=== PATIENT | male | born 1935 | race Caucasian/White ===

== ENCOUNTER 2016-11-05 15:45 | Inpatient (IN) | payer MEDICARE ==
[~2016-11-05] VITALS: Ht 180.3 cm; Wt 82.0 kg
[2016-11-09] MEDS ORDERED: VALS160T4 PO (14:59)
--- NOTE | 2016-11-12 15:43 | MH ---
cc: Ron SKINNER M.D. DATE OF ADMISSION: 11/16/2016 ADMITTING DIAGNOSIS: Osteoarthritic degeneration left knee now being admitted for left total knee arthroplasty. HISTORY OF PRESENT ILLNESS: This pleasant 81-year-old male is being admitted today for left total knee arthroplasty due to severe painful osteoarthritic degeneration left knee. PAST MEDICAL HISTORY: The patient has already had a right total knee in the past. He also has a history of hypertension, back pain. CURRENT MEDICATIONS Hydrochlorothiazide. Valsartan PAST SURGERIES Include tonsillectomy appendectomy micro surgery on his vocal cord cataract surgery. REVIEW OF SYSTEMS Noncontributory. FAMILY HISTORY Noncontributory. SOCIAL HISTORY: He does not smoke. Drinks occasionally. ALLERGIES NO KNOWN DRUG ALLERGIES. PHYSICAL EXAMINATION IN GENERAL: We find an 81-year male well-developed, well-nourished oriented x3 complaint of pain in his left knee. VITAL SIGNS: Blood pressure 122/70, pulse 65 and regular, respirations 16, temperature 97.6, pulse oximetry 96% on room air. HEAD, EYES, EARS, NOSE, AND THROAT: Eyes Pupils equal, round, reactive to light and accommodation, extraocular muscles intact. Ear, nose, and mouth clear. NECK: The neck is supple. LUNGS: clear HEART: Regular rate. ABDOMEN: Soft, positive bowel sounds and nontender. EXTREMITIES: Extremities reveal his left knee be tender with crepitance on range of motion. Range of motion from -5 showed full extension 90% degrees of flexion. He is neurovascularly to his toes. IMPRESSION Osteoarthritic degeneration left knee for which the patient will be undergoing a left total knee arthroplasty. He understands he understands procedure well and risks involved and wishes to proceed with surgery as soon as possible. He understands to use Hibiclens scrub and Bactroban preoperatively. He is given a prescription for postoperative pain anticoagulation control in the office. PLAN: Plans on going home with home health care after stay in the hospital. MD BECKY Guo/orin /2:03 PM /2:22 PM
[2016-11-16 06:41] VITALS: BP 143/81; PULSE 71; RESP 20; TEMP 97.8; O2SAT 97
[2016-11-16] MEDS: LACTATED RINGER'S 1000 ML IV SCH (06:52)
[2016-11-16] MEDS ORDERED: VANCOMYCIN HCL 1000 MG VIAL ONE (06:54)
[2016-11-16] MEDS ORDERED: SODIUM CHLOR 0.9% 250 ML INJ 250 ML ONE (06:54)
[2016-11-16] MEDS ORDERED: INSULIN HUMAN REGULAR 1,000 UNITS/10 ML VIAL SQ PRN (07:00)
[2016-11-16] MEDS: SODIUM CHLORID 0.9% 500 ML IV SCH ×2 (07:00→23:15)
[2016-11-16] MEDS ORDERED: METOPROLOL TARTRATE 25 MG TAB PO PRN (07:00)
[2016-11-16] MEDS ORDERED: MIDAZOLAM HCL 2 MG/2 ML VIAL ONE (07:17)
[2016-11-16] MEDS ORDERED: TRANEXAMIC ACID INJ 768 MG in SODIUM CHLORIDE 0.9% INJ 100 ML IV SCH ×4 (07:45)
[2016-11-16] MEDS ORDERED: EXPAREL PERI-ARTICULAR INJECTION (TOTAL VOL. 120 ML) P-ARTICULR SCH ×2 (08:00)
[2016-11-16] MEDS ORDERED: VANCOMYCIN 1000 MG/NS 250 ML (for <70 kg) IV SCH ×2 (08:00)
[2016-11-16] MEDS ORDERED: ceFAZolin 2 GM PREMIX 50 ML IV SCH (08:00)
[2016-11-16] MEDS: CHLORHEXIDINE GLUCONATE 4% SOLN 120 ML BTL TOP SCH (08:00)
[2016-11-16] MEDS ORDERED: BUPIVACAINE LIPOSO PF 1.3% INJ 20 ML, BUPIVACAINE PF 0.25% INJ 20 ML in SODIUM CHLORIDE... P-ARTICULR SCH (08:15)
[2016-11-16] MEDS ORDERED: NEOSTIGMINE 3 MG/3 ML SYR IV ONE (08:32)
[2016-11-16] MEDS ORDERED: PROPOFOL 200 MG/20 ML AMP IV ONE (08:32)
[2016-11-16] MEDS ORDERED: ONDANSETRON HCL 4 MG/2 ML VIAL IV PUSH ONE (08:32)
[2016-11-16] MEDS ORDERED: ceFAZolin INJ 1,000 MG VIAL XX ONE (08:38)
--- NOTE | 2016-11-16 10:23 | HHI.FF ---
Face to Face Verification Diagnosis: (1) Status post total left knee replacement Physical Therapy Gait training Knee: Total knee, Protocol: Left, Full weight bearing Canvas Knee Splint: When in bed & 2 pillows btw thighs Nursing RN: 3 days/week x 2 weeks Nursing: Carlos teaching, Dressing changes Dressing Changes: Daily dressing change, 4x4s, Gauze, Paper tape I have seen patient Simone Hernandez, DANNIELLE on 11/16/16. My clinical findings support the need for the requested home health care services because: Limited ability to care for self High risk of falls I certify that my clinical findings support that this patient is homebound because: Unsteady gait/balance Ron Orozco MD Nov 16, 2016 10:22
[2016-11-16] MEDS ORDERED: MISC-163 (10:25)
[2016-11-16] MEDS ORDERED: WALKER WHEELS/F1 MIS (10:25)
[2016-11-16] MEDS ORDERED: CPMMACHINE (10:25)
[2016-11-16] MEDS ORDERED: BUPIVACAINE HCL PF 0.5% 30 ML VIAL NB ONE (10:27)
[2016-11-16] MEDS ORDERED: TEMAZEPAM 15 MG CAP PO PRN (10:30)
[2016-11-16] MEDS ORDERED: Post-op Orders (for Pharmacy) MISC XX ONE (10:30)
[2016-11-16] MEDS ORDERED: TRANEXAMIC ACID INJ 0 MG in SODIUM CHLORIDE 0.9% INJ 100 ML IV SCH (10:30)
[2016-11-16] MEDS ORDERED: SODIUM CHLORIDE 0.9% FLUSH 5 ML FLUSH IVF PRN (10:30)
[2016-11-16] MEDS ORDERED: MORPHINE SULFATE 30 MG/30 ML PCA IV SCH (10:30)
[2016-11-16] MEDS ORDERED: diphenhydrAMINE HCL 50 MG/ML VIAL IV PRN (10:30)
[2016-11-16] MEDS ORDERED: ONDANSETRON HCL 4 MG/2 ML VIAL IVP PRN (10:30)
[2016-11-16] MEDS ORDERED: NALOXONE HCL 0.4 MG/ML AMP IV PRN (10:30)
[2016-11-16] MEDS ORDERED: ACETAMINOPHEN/HYDROcodone 325 MG/7.5 MG TAB PO PRN (10:30)
[2016-11-16] MEDS ORDERED: DO NOT ADM ANY ANTICOAGULANT DRUGS XX PRN (10:51)
[2016-11-16] MEDS ORDERED: fentaNYL CITRATE 250 MCG/5 ML AMP ONE (10:54)
[2016-11-16] MEDS: LACTATED RINGER'S 1000 ML INJ 1,000 ML IV SCH ×2 (11:00→23:15)
[2016-11-16 11:47] VITALS: BP 143/80; PULSE 71; RESP 16; TEMP 96; O2SAT 95
--- NOTE | 2016-11-16 12:01 | RADRPT ---
EXAM DATE/TIME: 11/16/2016 11:01 [place] COMPARISON: No previous studies available for comparison. INDICATIONS : Left knee replacement. MEDICAL HISTORY : Hypertension. SURGICAL HISTORY : None. ENCOUNTER: Initial ACUITY: 1 day PAIN SCORE: Non-responsive. LOCATION: Left knee. FINDINGS: AP and lateral views of the knee following arthroplasty reveals a prosthesis in anatomic alignment. F racture is not appreciated. CONCLUSION: Status post total knee arthroplasty. Tam Mendiola MD FACR Board Certified Radiologist. This report was verified electronically.
[2016-11-16 12:17] VITALS: O2SAT 97
[2016-11-16] MEDS: PCA - TOTAL MG MORPHINE DELIVERED PER SHIFT SCH ×2 (14:00→21:34)
[2016-11-16] MEDS ORDERED: MULT1TAB85 PO (14:20)
[2016-11-16] MEDS ORDERED: CHOL1TAB42 PO (14:24)
[2016-11-16 16:00] VITALS: BP 128/60; PULSE 99; RESP 16; TEMP 96.8; O2SAT 95
[2016-11-16 20:25] VITALS: BP 126/59; PULSE 130; RESP 19; TEMP 98.9; O2SAT 92
[2016-11-16] MEDS: SODIUM CHLORIDE 0.9% FLUSH 5 ML FLUSH IVF SCH (20:59)
[2016-11-17] VITALS (9 sets, daily range): BP systolic 97–125; BP diastolic 53–63; PULSE 91–116; RESP 16–18; TEMP 97.5–100.3; O2SAT 88–98
[2016-11-17] MEDS: PCA - TOTAL MG MORPHINE DELIVERED PER SHIFT SCH (06:21)
[2016-11-17] MEDS: LACTATED RINGER'S 1000 ML IV SCH (07:00)
[2016-11-17 07:09] LABS: HEMATOCRIT 42.3 % (39.0-51.0); REVIEW FLAG FINAL
[2016-11-17] MEDS: CHLORHEXIDINE GLUCONATE 4% SOLN 120 ML BTL TOP SCH (07:29)
[2016-11-17] MEDS: SODIUM CHLORIDE 0.9% FLUSH 5 ML FLUSH IVF SCH ×2 (08:07→21:43)
[2016-11-17] MEDS: HYDROCHLOROTHIAZIDE 12.5 MG CAP PO SCH (08:07)
[2016-11-17] MEDS: VALSARTAN 160 MG TAB PO SCH (08:07)
--- NOTE | 2016-11-17 08:50 | PD.ORT.PN ---
Subjective Subjective Remarks pt comfortable at present. Block still working. Objective Vitals Vital Signs Date Time Temp Pulse Resp B/P Pulse Ox O2 Delivery O2 Flow Rate FiO2 11/17/16 06:21 17 11/17/16 04:25 99.2 104 18 125/63 98 11/17/16 02:15 88 Nasal Cannula 1.00 11/17/16 00:15 98.8 114 18 112/62 95 11/16/16 21:34 18 11/16/16 20:25 98.9 130 19 126/59 92 11/16/16 16:00 96.8 99 16 128/60 95 11/16/16 14:00 15 11/16/16 12:17 97 21 11/16/16 11:47 96.0 71 16 143/80 95 11/16/16 11:41 14 11/16/16 11:25 97.7 65 14 152/81 94 Room Air 11/16/16 11:15 73 14 154/80 95 Room Air 11/16/16 11:00 71 14 151/85 98 Nasal Cannula 2 11/16/16 10:45 97.7 80 14 154/89 98 Nasal Cannula 2 I/O 11/16/16 11/16/16 11/16/16 11/17/16 11/17/16 11/17/16 07:00 15:00 23:00 07:00 15:00 23:00 Intake Total 1805 ml 873 ml 992 ml Output Total 450 ml 200 ml 425 ml Balance 1355 ml 673 ml 567 ml Intake Oral 640 ml 240 ml 240 ml IV Total 215 ml 633 ml 752 ml Other 950 ml Output Urine Total 350 ml 200 ml 425 ml Estimated Blood Loss 100 ml # Voids 2 # Bowel Movements 0 0 0 Result Diagram: 11/17/16 0630 Imaging Last 24 hours Impressions Knee X-Ray 11/16/16 1019 Signed Impressions: Service Date/Time: Wednesday, November 16, 2016 11:01 - CONCLUSION: Status post total knee arthroplasty. Tam Mendiola MD Objective Remarks Dressing dry and intact. No calf tenderness. Assessment & Plan Ortho Post Op Day #: 1 Problem List: Assessment and Plan OOB, PT, daily wound care. Possible DC to home tomorrow. DC SCRAP KETTLE TENDER. Ron Orozco MD Nov 17, 2016 08:50
[2016-11-17] MEDS ORDERED: HYDROCHLOROTHIAZIDE 12.5 MG CAP PO SCH ×2 (09:00)
[2016-11-17] MEDS ORDERED: VALSARTAN 160 MG TAB PO SCH ×2 (09:00)
[2016-11-17] MEDS ORDERED: NON-FORMULARY DRUG (Valsartan-Hydrochlorothiazide 1 TAB) PO SCH (09:00)
[2016-11-17] MEDS: ACETAMINOPHEN/HYDROcodone 325 MG/7.5 MG TAB PO PRN ×3 (10:11→18:19)
[2016-11-17] MEDS: LACTATED RINGER'S 1000 ML INJ 1,000 ML IV SCH (10:12)
[2016-11-17] MEDS: ENOXAPARIN SODIUM 30 MG/0.3 ML SYRINGE SQ SCH ×2 (10:12→21:42)
[2016-11-17] MEDS: MAGNESIUM HYDROXIDE SUSP 30 ML CUP PO SCH ×2 (10:12→21:42)
--- NOTE | 2016-11-17 21:32 | MP ---
cc: Moises SKINNER. DATE OF SURGERY: 11/16/2016 PREOPERATIVE DIAGNOSIS: Osteoarthritic degeneration, left knee POSTOPERATIVE DIAGNOSIS: Osteoarthritic degeneration, left knee. OPERATION: Left total knee arthroplasty. COMPONENTS USED: [employer] Cruciate Retaining Pre-made cutting guide system. Size 8 femur, 7 tibia, 35 millimeter three peg patella, size 9 insert, two batches of cobalt blue cement, 120 cc Exparel for extra pain control. SURGEON Dr. 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 ANESTHESIA General intubation and block PROCEDURE: After successful induction of anesthesia, the patient is placed on the operating room table in the supine position. The knee is prepped and draped in the usual manner. A tourniquet is inflated at the upper thigh and set to 300 mmHg pressure after exsanguination of the lower extremity. A longitudinal incision is made extending from 3 inches proximal to the superior pole of the patella, across the patella in longitudinal fashion, and down past the insertion of the tibial tubercle into the proximal tibia. The incision is carried down through subcutaneous tissue along the medial aspect of the patella and retinaculum, down through the capsule to expose the knee joint. The patella and patellar tendon are freed up enough to allow the patella to be inverted and retracted off the lateral side of the knee joint. The knee joint is left exposed. Small osteophytes are removed. All soft tissue is removed to allow proper position of the femoral and tibial cutting jig guide. The first femoral jig is then inserted along the distal end of the femur after first measuring to decide whether this is a small, medium, or large component. The notch is then drilled and the tibial cutting guide inserted into the femoral cutting guide, along with the ankle brace to allow for proper measurement of the tibial cutting surface that needed to be resected. Pins are inserted into the tibial cutting jig and femoral cutting jig to hold them in place. An oscillating saw is then used to resect the surface of the tibia. The surface of the tibia is then completely removed using sharp and blunt dissection. The anterior and posterior cuts of the femur are then made as well using an oscillating saw through the cutting guide. All guides are then removed and the varus/valgus angulation cutting guide applied to the femur for proper measurement of the proper amount of valgus. The anterior cutting guide for the femur is then inserted at the anterior femoral cuts made. Next, the first block trial is inserted into the femur to allow for proper condyle drill holes to be made which are then made followed by removal of the bone between the condyles using an oscillating saw as well as the bone removed at the most posterior surface of the condyle. After this, the guide is removed and the chamfer cuts made using the chamfer cutting guide from both anterior and posterior. Next, the femoral trial is then inserted, the tibial surface reflected anterior to expose the tibial surface and a tibial stem guide is inserted after first measuring for a standard, standard plus, large, or large plus surface to be used. After the stem is impacted the trial tibial surface is applied followed by the trial meniscal components. After full range of motion is found with the appropriate length meniscal components varying the patella is prepared by resecting the posterior aspect of the patella using an oscillating saw, inserting a trial. The trial is then removed and the cruciate cutting guide applied using the bur to cut the cruciate cuts. After cruciate cuts are made all trials are removed. The wound is irrigated copiously with antibiotic solution and Water Pik and the actual components inserted into place using: [employer] [facility] Cruciate Retaining Pre-made Cutting Guide System. Size 8 femur, 7 tibia, 35 millimeter three peg patella, size 9 insert, two batches of cobalt blue cement, 120 cc Exparel for extra pain control. After the cement has hardened and the components are found to have full range of motion with no instability, the tourniquet is deflated, total tourniquet time being 54 minutes at 300 mmHg pressure, 120 cc Exparel with 20 Marcaine inserted around the knee joint for extra pain control. Meticulous hemostasis achieved. The deep fascia approximated with running #2 Quill, subcutaneous tissue approximated using interrupted running 2-0 and 3-0 Monocryl suture, Steri-Strips, sterile dressing and knee immobilizer. Estimated blood loss: 100 cc. No drain utilized. Sponge and suture count correct. The patient tolerated the procedure well and left the operating room in satisfactory condition. MD BECKY Guo/MIKE /10:29 AM /9:16 PM
[2016-11-17] MEDS: MULTIVITAMINS/MINERALS THERAPEUTIC TAB PO SCH (21:42)
[2016-11-17] MEDS: SENNOSIDES 8.6 MG TAB PO SCH (21:42)
[2016-11-17] MEDS: DOCUSATE SODIUM 100 MG CAP PO SCH (21:42)
[2016-11-18] VITALS (7 sets, daily range): BP systolic 122–133; BP diastolic 52–69; PULSE 112–119; RESP 16–17; TEMP 96.3–100.2; O2SAT 92–98
[2016-11-18] MEDS: LACTATED RINGER'S 1000 ML INJ 1,000 ML IV SCH ×2 (00:30→13:00)
[2016-11-18 06:54] LABS: HEMATOCRIT 36.5 % (39.0-51.0); REVIEW FLAG FINAL
[2016-11-18] MEDS: LACTATED RINGER'S 1000 ML IV SCH (07:00)
[2016-11-18] MEDS: CHLORHEXIDINE GLUCONATE 4% SOLN 120 ML BTL TOP SCH (08:00)
--- NOTE | 2016-11-18 08:10 | PD.ORT.PN ---
Subjective Subjective Remarks pt comfortable at present. No complaints. Objective Vitals Vital Signs Date Time Temp Pulse Resp B/P Pulse Ox O2 Delivery O2 Flow Rate FiO2 11/18/16 00:00 100.2 119 17 123/57 94 11/17/16 20:00 99.3 107 16 107/59 97 11/17/16 16:48 98.9 91 16 116/55 93 11/17/16 13:34 97.5 97/56 11/17/16 11:40 100.3 116 16 97/53 92 11/17/16 11:27 93 Nasal Cannula 21 I/O 11/17/16 11/17/16 11/17/16 11/18/16 11/18/16 11/18/16 07:00 15:00 23:00 07:00 15:00 23:00 Intake Total 992 ml 1285 ml 240 ml 240 ml Output Total 425 ml 150 ml Balance 567 ml 1135 ml 240 ml 240 ml Intake Oral 240 ml 960 ml 240 ml 240 ml IV Total 752 ml 325 ml Output Urine Total 425 ml 150 ml # Voids 2 1 2 # Bowel Movements 0 0 0 Result Diagram: 11/18/16 0540 Imaging Last 24 hours Impressions Knee X-Ray 11/16/16 1019 Signed Impressions: Service Date/Time: Wednesday, November 16, 2016 11:01 - CONCLUSION: Status post total knee arthroplasty. Tam Mendiola MD Objective Remarks Dressing dry and intact. No calf tenderness. On CPM. Assessment & Plan Ortho Post Op Day #: 2 Problem List: Assessment and Plan OOB, PT, daily wound care. Home today with [facility]. Ron Orozco MD Nov 18, 2016 08:10
--- NOTE | 2016-11-18 08:13 | HHI.DS ---
Discharge Summary Admission Date Nov 16, 2016 at 05:33 Discharge Date: Nov 18, 2016 Admitting Diagnosis DJD left knee. Diagnosis: (1) Status post total left knee replacement Diagnosis: Principal Brief History This is a 81 year old male patient CBC/BMP: 11/18/16 0540 Significant Findings Laboratory Tests Test 11/18/16 05:40 Hemoglobin 12.3 GM/DL (13.0-17.0) Hematocrit 36.5 % (39.0-51.0) PE at Discharge Dressing dry and intact. No calf tenderness. On CPM. Hospital Course Pt underwent Left total knee on day of admission. He received a course of prophylactic IV antibiotics and started on anticoagulation therapy within 23 hours of surgery. He began OOB with PT and daily wound care. He tolerated food and fluids well, remained afebrile under 101 temp, tolerated PO pain meds and was discharged on POD #2 to home with HHC and PT. in good condition. Pt Condition on Discharge: Good Discharge Disposition: Disch w/ Home Health Serv Discharge Instructions Diet Instructions: As Tolerated, No Restrictions Activities You Can Perform: Full Weight Bearing, Shower Only-No Bath Activities to Avoid: Bathing, Driving Ron Orozco MD Nov 18, 2016 08:13
[2016-11-18] MEDS: MULTIVITAMINS/MINERALS THERAPEUTIC TAB PO SCH ×2 (08:35→22:32)
[2016-11-18] MEDS: HYDROCHLOROTHIAZIDE 12.5 MG CAP PO SCH (08:35)
[2016-11-18] MEDS: VALSARTAN 160 MG TAB PO SCH (08:35)
[2016-11-18] MEDS: DOCUSATE SODIUM 100 MG CAP PO SCH ×2 (08:36→22:32)
[2016-11-18] MEDS: SODIUM CHLORIDE 0.9% FLUSH 5 ML FLUSH IVF SCH ×2 (08:36→22:33)
[2016-11-18] MEDS: MAGNESIUM HYDROXIDE SUSP 30 ML CUP PO SCH ×2 (08:37→22:32)
[2016-11-18] MEDS: ACETAMINOPHEN/HYDROcodone 325 MG/7.5 MG TAB PO PRN (08:43)
[2016-11-18] MEDS: ENOXAPARIN SODIUM 30 MG/0.3 ML SYRINGE SQ SCH ×2 (10:00→22:32)
[2016-11-18] MEDS ORDERED: BACITRACIN OINT 0.9 GM PKT TOP PRN (10:15)
[2016-11-18] MEDS: ACETAMINOPHEN 325 MG TAB PO PRN (14:18)
[2016-11-18] MEDS: SENNOSIDES 8.6 MG TAB PO SCH (22:32)
[2016-11-19] VITALS: BP 129/62; PULSE 115; RESP 16; TEMP 98.2; O2SAT 94
[2016-11-19] MEDS: LACTATED RINGER'S 1000 ML INJ 1,000 ML IV SCH ×2 (01:30→14:00)
[2016-11-19] MEDS: LACTATED RINGER'S 1000 ML IV SCH (07:00)
[2016-11-19 08:00] VITALS: BP 139/62; PULSE 124; RESP 16; TEMP 98.9; O2SAT 96
[2016-11-19] MEDS: MAGNESIUM HYDROXIDE SUSP 30 ML CUP PO SCH ×2 (09:00→20:35)
[2016-11-19] MEDS: DOCUSATE SODIUM 100 MG CAP PO SCH ×2 (09:00→20:35)
[2016-11-19] MEDS: HYDROCHLOROTHIAZIDE 12.5 MG CAP PO SCH (09:20)
[2016-11-19] MEDS: VALSARTAN 160 MG TAB PO SCH (09:20)
[2016-11-19] MEDS: MULTIVITAMINS/MINERALS THERAPEUTIC TAB PO SCH ×2 (09:20→20:34)
[2016-11-19] MEDS: SODIUM CHLORIDE 0.9% FLUSH 5 ML FLUSH IVF SCH ×2 (09:21→20:35)
[2016-11-19] MEDS: ACETAMINOPHEN 325 MG TAB PO PRN (09:21)
[2016-11-19] MEDS: ENOXAPARIN SODIUM 30 MG/0.3 ML SYRINGE SQ SCH ×2 (09:28→20:34)
[2016-11-19 11:28] VITALS: O2SAT 94
--- NOTE | 2016-11-19 11:31 | PD.ORT.PN ---
Subjective Subjective Remarks pt confused at present. No complaints except pain. Objective Vitals Vital Signs Date Time Temp Pulse Resp B/P Pulse Ox O2 Delivery O2 Flow Rate FiO2 11/19/16 11:28 94 Nasal Cannula 21 11/19/16 08:00 98.9 124 16 139/62 96 11/19/16 00:00 98.2 115 16 129/62 94 11/18/16 22:09 94 11/18/16 20:00 97.8 119 17 128/52 94 11/18/16 16:00 98.0 112 16 133/58 97 11/18/16 14:26 98 Nasal Cannula 2.00 11/18/16 12:00 99.1 112 16 122/55 95 I/O 11/18/16 11/18/16 11/18/16 11/19/16 11/19/16 11/19/16 07:00 15:00 23:00 07:00 15:00 23:00 Intake Total 240 ml 360 ml 240 ml 240 ml Output Total 200 ml Balance 240 ml 160 ml 240 ml 240 ml Intake Oral 240 ml 360 ml 240 ml 240 ml Output Urine Total 200 ml # Voids 2 1 1 2 # Bowel Movements 0 0 2 Result Diagram: 11/18/16 0540 Imaging Last 24 hours Impressions Knee X-Ray 11/16/16 1019 Signed Impressions: Service Date/Time: Wednesday, November 16, 2016 11:01 - CONCLUSION: Status post total knee arthroplasty. Tam Mendiola MD Objective Remarks Dressing dry and intact. No calf tenderness. Sitting up in chair today. Assessment & Plan Ortho Post Op Day #: 3 Problem List: (1) Status post total left knee replacement Assessment and Plan OOB, PT, daily wound care. To rehab when bed available, change pain meds. Ron Orozco MD Nov 19, 2016 11:31
[2016-11-19 12:00] VITALS: BP 111/61; PULSE 131; RESP 16; TEMP 98.1; O2SAT 92
[2016-11-19 16:00] VITALS: BP 138/93; PULSE 124; RESP 16; TEMP 97.8; O2SAT 93
[2016-11-19] MEDS: traMADol HCL 50 MG TAB PO PRN (16:36)
[2016-11-19 20:00] VITALS: BP 138/60; PULSE 133; RESP 18; TEMP 100.1; O2SAT 93
[2016-11-19] MEDS: SENNOSIDES 8.6 MG TAB PO SCH (20:34)
[2016-11-20] VITALS: BP 118/60; PULSE 110; RESP 17; TEMP 97.8; O2SAT 93
[2016-11-20] MEDS: ACETAMINOPHEN 325 MG TAB PO PRN (05:44)
[2016-11-20] MEDS: LACTATED RINGER'S 1000 ML IV SCH (07:00)
[2016-11-20 08:00] VITALS: BP 123/63; PULSE 99; RESP 18; TEMP 97.8; O2SAT 93
[2016-11-20] MEDS: MAGNESIUM HYDROXIDE SUSP 30 ML CUP PO SCH (09:00)
--- NOTE | 2016-11-20 09:39 | PD.ORT.PN ---
Subjective Subjective Remarks pt not confused at present. No complaints except pain but feels better than yesterday. Objective Vitals Vital Signs Date Time Temp Pulse Resp B/P Pulse Ox O2 Delivery O2 Flow Rate FiO2 11/20/16 00:00 97.8 110 17 118/60 93 11/19/16 20:00 100.1 133 18 138/60 93 11/19/16 16:00 97.8 124 16 138/93 93 11/19/16 12:00 98.1 131 16 111/61 92 11/19/16 11:28 94 Nasal Cannula 21 I/O 11/19/16 11/19/16 11/19/16 11/20/16 11/20/16 11/20/16 07:00 15:00 23:00 07:00 15:00 23:00 Intake Total 240 ml 1220 ml 240 ml 240 ml Output Total 300 ml Balance 240 ml 1220 ml -60 ml 240 ml Intake Oral 240 ml 1220 ml 240 ml 240 ml Output Urine Total 300 ml # Voids 2 3 2 # Bowel Movements 2 2 0 0 Result Diagram: 11/18/16 0540 Imaging Last 24 hours Impressions Knee X-Ray 11/16/16 1019 Signed Impressions: Service Date/Time: Wednesday, November 16, 2016 11:01 - CONCLUSION: Status post total knee arthroplasty. Tam Mendiola MD Objective Remarks Dressing dry and intact. No calf tenderness. Assessment & Plan Ortho Post Op Day #: 4 Problem List: (1) Status post total left knee replacement Assessment and Plan OOB, PT, daily wound care. To rehab when bed available. Ron Orozco MD Nov 20, 2016 09:39
[2016-11-20] MEDS: HYDROCHLOROTHIAZIDE 12.5 MG CAP PO SCH (09:42)
[2016-11-20] MEDS: VALSARTAN 160 MG TAB PO SCH (09:42)
[2016-11-20] MEDS: DOCUSATE SODIUM 100 MG CAP PO SCH (09:42)
[2016-11-20] MEDS: MULTIVITAMINS/MINERALS THERAPEUTIC TAB PO SCH (09:42)
[2016-11-20] MEDS: SODIUM CHLORIDE 0.9% FLUSH 5 ML FLUSH IVF SCH (09:44)
[2016-11-20] MEDS: ENOXAPARIN SODIUM 30 MG/0.3 ML SYRINGE SQ SCH (09:48)
[2016-11-20] MEDS: traMADol HCL 50 MG TAB PO PRN (10:03)
[2016-11-20 12:00] VITALS: BP 144/70; PULSE 110; RESP 18; TEMP 96.9; O2SAT 94
[2016-11-20] MEDS ORDERED: ULTR50TA5 PO (14:35)
[2016-11-20] MEDS: LACTATED RINGER'S 1000 ML INJ 1,000 ML IV SCH (15:00)
[2016-11-20 16:00] VITALS: BP 151/70; PULSE 114; RESP 18; TEMP 99.1; O2SAT 93
== END 2016-11-20 17:47 | DRG 470 ==
LOC: HSDI 11-16 05:33 → EDUNIT# 11-16 08:00 → N06A 11-16 11:36
PROVIDERS: ADMIT Surgery; ATTEND Surgery
PROC: 0QRF0JZ Replacement of Left Patella with Synthetic Substitute, Open Approach (ICD-10-PCS; 2016-11-16)
PROC: 3E0T3CZ (ICD-10-PCS; 2016-11-16)
PROC: 0SRD0J9 Replacement of Left Knee Joint with Synthetic Substitute, Cemented, Open Approach (ICD-10-PCS; principal; 2016-11-16 07:57)
DX: M17.12 Unilateral primary osteoarthritis, left knee (principal); I10 Essential (primary) hypertension
CPT/HCPCS: 73560; 85014; 85018; 86850; 86900; 86901; 94150; C1776; C9290; J0690; J1650; J2250; J2270; J2405; J2710; J3010; J3370; J7050; J7120; L1830

== ENCOUNTER → 2016-11-09 | Outpatient (CLI) | payer MEDICARE ==
[~2016-11-09] MED LIST: ALLO100 PO; ALLO300T2 PO; CEFA2SOL IV; CEPH500C PO; CHOL1TAB42 PO; CO Q30CA PO; COLC1TAB15 PO; CPMMACHINE; DIOV80TA4 PO; DOXY100C PO; EPIN1INJ21 IV PUSH; EPIN1INJ21 SQ; FISH1000 PO; METO25TA3 PO; MISC-163; MULT-7 PO; MULT1TAB85 PO; PROB1TAB PO; SOLU250I IV PUSH; ULTR50TA5 PO; VALS160T4 PO; VALS1TAB65 PO; WALKER WHEELS/F1 MIS
[2016-11-09 09:46] LABS: BASOPHIL % 0.7 % (0.0-2.0); EOSINOPHIL # 0.2 TH/MM3 (0-0.4); EOSINOPHIL % 3.4 % (0.0-4.0); HEMATOCRIT 48.9 % (39.0-51.0); HEMO FLAGS DIFF FINAL; LYMPH % 21.2 % (9.0-44.0); MEAN CELL VOLUME 95.6 FL (80.0-100.0); MEAN CORPUSCULAR HEMOGLOBIN 33.5 PG (27.0-34.0); MONO % 10.5 % (0.0-8.0); NEUT % 64.2 % (16.0-70.0); PLATELET COUNT 157 TH/MM3 (150-450); RED BLOOD COUNT 5.12 MIL/MM3 (4.50-5.90); RED CELL DISTRIBUTION WIDTH 14.7 % (11.6-17.2); WHITE BLOOD COUNT 4.6 TH/MM3 (4.0-11.0)
[2016-11-09 09:54] LABS: BLOOD, URINE NEG (NEG); COMMENT (UR) CULT NOT INDICATED; CULTURE IF INDICATED CULT NOT INDICATED; GLUCOSE,URINE NEG (NEG); HYALINE CAST, URINE 1 /lpf (RARE); KETONE, URINE NEG (NEG); MUCUS URINE FEW /lpf (OCC); NITRITE,URINE NEG (NEG); PH, URINE 5.5 (5.0-8.5); URINE COLOR YELLOW (YELLW/STRAW)
[2016-11-09 10:03] LABS: PROTHROMBIN TIME - PATIENT 10.5 SEC (9.8-11.6)
[2016-11-09 10:13] LABS: ANION GAP 4 MEQ/L (5-15); AST (GOT) 16 U/L (15-37); BICARBONATE 33.5 MEQ/L (21.0-32.0); BLOOD UREA NITROGEN 23 MG/DL (7-18); CHLORIDE 105 MEQ/L (98-107); GLOMERULAR FILTRATION RATE 41 ML/MIN (>89); GLUCOSE,FASTING 102 MG/DL (74-99); POTASSIUM 4.4 MEQ/L (3.5-5.1); SODIUM (NA) 142 MEQ/L (136-145)
[2016-11-09 10:18] LABS: ALKALINE PHOSPHATASE 58 U/L (45-117); ALT (GPT) 23 U/L (12-78)
== END ==
LOC: CPRE 08:12
PROVIDERS: ATTEND Surgery
DX: Z01.810 Encounter for preprocedural cardiovascular examination (principal); Z01.812 Encounter for preprocedural laboratory examination; M79.609 Pain in unspecified limb
CPT/HCPCS: 36415; 80053; 81001; 85025; 85610; 85730

== ENCOUNTER 2016-12-09 17:51 | Inpatient (IN) | payer MEDICARE ==
[~2016-12-09] VITALS: Ht 180.3 cm; Wt 68.0 kg
[~2016-12-09 17:51] MED LIST changes: -ALLO100 PO; -ALLO300T2 PO; -CEFA2SOL IV; -CEPH500C PO; -CO Q30CA PO; -COLC1TAB15 PO; -DIOV80TA4 PO; -DOXY100C PO; -EPIN1INJ21 IV PUSH; -EPIN1INJ21 SQ; -FISH1000 PO; -METO25TA3 PO; -MULT-7 PO; -PROB1TAB PO; -SOLU250I IV PUSH; -VALS1TAB65 PO
[2016-12-09 17:53] VITALS: BP 115/65; PULSE 148; RESP 24; TEMP 97.5; O2SAT 98
[2016-12-09] MEDS ORDERED: SODIUM CHLOR 0.9% 1000 ML INJ 1,000 ML IV SCH ×2 (18:17)
--- NOTE | 2016-12-09 18:21 | PD ---
HPI Chief Complaint: Skin Problem Time Seen by Provider: 18:10 Travel History International Travel<30 days: No Contact w/Intl Traveler<30days: No Traveled to known affect area: No History of Present Illness HPI This is an 81-year-old male with history of hypertension presents with his for evaluation of pressure ulcers on the heels. The patient underwent a left total knee replacement on November [address] Orozco. He then went to [facility]. He developed a pressure ulcer on both heels, worsening on the left over the past several days with now some yellow drainage and redness around the wound. He also lost 10 pounds during his stay at [facility]. He had decreased appetite, not drinking much. He was discharged 2 days ago and the has been trying to keep him hydrated. He's been complaining of generalized weakness. She spoke to the primary care physician today who recommended coming here for further evaluation. He is complaining of postsurgical pain in the left knee as well as pain in the left heel. She denies any cough or congestion, chest pain or shortness of breath, abdominal pain, dysuria, fevers or chills. He has no other complaints at this time. His primary care physician is Dr. Valenzuela. [facility] Past Medical History Arthritis: Yes Cancer: Yes (skin CA on nose and under r eye removed) Cardiovascular Problems: No Chemotherapy: No Diabetes: No Endocrine: No Genitourinary: No Hepatitis: No Hiatal Hernia: No Immune Disorder: No Musculoskeletal: Yes (arthritis,back pain L3 and neck pain) Neurologic: No Psychiatric: No Reproductive: No Respiratory: No Migraines: No Seizures: No Thyroid Disease: No Past Surgical History Abdominal Surgery: Yes (appy) AICD: No Eye Surgery: Yes (cataract surgery) Joint Replacement: No Oral Surgery: Yes (lesion on vocal cord removed) Pacemaker: No Social History Tobacco Use: No Substance Use: No Allergies-Medications (Allergen,Severity, Reaction): Coded Allergies: No Known Allergies (Unverified , 12/09/16) Reported Meds & Prescriptions Reported Meds & Active Scripts Active Ultram (Tramadol HCl) 50 Mg Tab 100 Mg PO Q4H PRN Reported Co Q-10 (Coenzyme Q10 (Ubidecarenone)) Unknown Strength Cap 1-2 Cap PO DAILY Fish Oil (Faucett-3 Fatty Acids) 1,000 Mg Cap 1,000 Mg PO DAILY Bone Density Builder (Multiple Minerals W/ Vitamins) 1 Tab Tab 1 Tab PO DAILY Probiotic (Probiotic Product) 1 Tab Tab 1 Tab PO BID Vitamin D-3 (Cholecalciferol) 2,000 Unit Tab 2,000 Units PO DAILY Multivitamin Men (Multiple Vitamins W/ Minerals) 1 Tab Tab 1 Tab PO DAILY Valsartan-Hydrochlorothiazide 160-12.5 Mg Tab 1 Tab PO DAILY Review of Systems Except as stated in HPI: all other systems reviewed are Neg Physical Exam Narrative GENERAL: Well-developed well-nourished male who is in no acute distress. He is tachycardic. SKIN: Warm and dry. There is a stage I pressure ulcer on the right heel. There is a stage 2-3 pressure ulcer on the left heel. There is some drainage and some necrosis on the left heel. Mild erythema surrounding. HEAD: Atraumatic. Normocephalic. EYES: Pupils equal and round. No scleral icterus. No injection or drainage. ENT: No nasal bleeding or discharge. Dry mucous membranes. NECK: Trachea midline. No JVD. CARDIOVASCULAR: Regular rate and rhythm. No murmur appreciated. RESPIRATORY: No accessory muscle use. Clear to auscultation. Breath sounds equal bilaterally. GASTROINTESTINAL: Abdomen soft, non-tender, nondistended. Hepatic and splenic margins not palpable. MUSCULOSKELETAL: No obvious deformities. Skin as noted above. No lower extremity edema. Left knee status post replacement with Steri-Strips and surgical wound intact on the anterior left knee with no wound dehiscence. No erythema or induration of the left knee skin. NEUROLOGICAL: Awake and alert. No obvious cranial nerve deficits. Motor grossly within normal limits. Normal speech. Data Data Last Documented VS Vital Signs Date Time Temp Pulse Resp B/P Pulse Ox O2 Delivery O2 Flow Rate FiO2 12/09/16 19:18 97.9 105 18 102/53 95 Room Air 12/09/16 18:51 2 Orders Electrocardiogram (12/09/16 ) Complete Blood Count With Diff (12/09/16 18:17) Comprehensive Metabolic Panel (12/09/16 18:17) Prothrombin Time / Inr (Pt) (12/09/16 18:17) Act Partial Throm Time (Ptt) (12/09/16 18:17) Lactic Acid Sepsis Protocol (12/09/16 18:17) Magnesium (Mg) (12/09/16 18:17) Urinalysis - C+S If Indicated (12/09/16 18:17) Blood Culture (12/09/16 18:17) Chest, Single Ap (12/09/16 18:17) Blood Glucose (12/09/16 18:17) Ecg Monitoring (12/09/16 18:17) Iv Access Insert/Monitor (12/09/16 18:17) Oximetry (12/09/16 18:17) Oxygen Administration (12/09/16 18:17) Westergren Sedimentation Rate (12/09/16 18:17) C-Reactive Protein (Crp) (12/09/16 18:17) Foot, Heel Only (Sak1mso) (12/09/16 ) Sodium Chlor 0.9% 1000 Ml Inj (Ns 1000 M (12/09/16 18:17) Ondansetron Inj (Zofran Inj) (12/09/16 18:30) Sodium Chlor 0.9% 1000 Ml Inj (Ns 1000 M (12/09/16 18:17) Wound Culture And Gram Stain (12/09/16 18:21) Vancomycin Inj (Vancomycin Inj) (12/09/16 20:00) Piperacil-Tazo 2.25 Gm Premix (Zosyn 2.2 (12/09/16 20:00) Admit Order (Ed Use Only) (12/09/16 20:27) Labs Laboratory Tests Test 12/09/16 18:30 White Blood Count 12.1 TH/MM3 Red Blood Count 3.79 MIL/MM3 Hemoglobin 12.2 GM/DL Hematocrit 36.1 % Mean Corpuscular Volume 95.2 FL Mean Corpuscular Hemoglobin 32.1 PG Mean Corpuscular Hemoglobin 33.7 % Concent Red Cell Distribution Width 14.0 % Platelet Count 321 TH/MM3 Mean Platelet Volume 8.5 FL Neutrophils (%) (Auto) 79.2 % Lymphocytes (%) (Auto) 9.6 % Monocytes (%) (Auto) 8.6 % Eosinophils (%) (Auto) 2.0 % Basophils (%) (Auto) 0.6 % Neutrophils # (Auto) 9.6 TH/MM3 Lymphocytes # (Auto) 1.2 TH/MM3 Monocytes # (Auto) 1.0 TH/MM3 Eosinophils # (Auto) 0.2 TH/MM3 Basophils # (Auto) 0.1 TH/MM3 CBC Comment DIFF FINAL Differential Comment Erythrocyte Sedimentation Rate 74 mm/hr Prothrombin Time 11.5 SEC Prothromb Time International 1.0 RATIO Ratio Activated Partial 28.8 SEC Thromboplast Time Sodium Level 141 MEQ/L Potassium Level 4.5 MEQ/L Chloride Level 102 MEQ/L Carbon Dioxide Level 27.0 MEQ/L Anion Gap 12 MEQ/L Blood Urea Nitrogen 51 MG/DL Creatinine 3.08 MG/DL Estimat Glomerular Filtration 19 ML/MIN Rate Random Glucose 113 MG/DL Lactic Acid Level 2.2 mmol/L Calcium Level 10.0 MG/DL Magnesium Level 2.1 MG/DL Total Bilirubin 1.5 MG/DL Aspartate Amino Transf 32 U/L (AST/SGOT) Alanine Aminotransferase 53 U/L (ALT/SGPT) Alkaline Phosphatase 135 U/L C-Reactive Protein 14.30 MG/DL Total Protein 6.9 GM/DL Albumin 2.7 GM/DL [facility] Medical Decision Making Medical Screen Exam Complete: Yes Emergency Medical Condition: Yes Medical Record Reviewed: Yes Interpretation(s) EKG sinus tachycardia rate 118 Differential Diagnosis Failure to thrive, dehydration, heel pressure ulcer, cellulitis, osteomyelitis, sepsis Narrative Course 81-year-old male presents with worsening left heel pressure ulcer, dehydration, weakness, weight loss. On initial examination is tachycardic with a heart rate of 148, systolic blood pressure in the high 80s. The patient will be given 2 L fluid bolus. The patient was placed on ECG monitoring a 12-lead EKG was performed. Plan is for basic lab work, chest x-ray, left heel x-ray, wound culture, blood cultures. Lab work is been reviewed. Notable for WBC count 12.1, elevated ESR and CRP, BUN 51 creatinine 3.08 with a GFR of 19 significantly elevated from his baseline , lactic acid 2.2. Broad-spectrum antibiotics started pending wound culture. The patient will be admitted for infected pressure ulcer on the left heel, severe sepsis, acute kidney injury. Upon recheck his blood pressure has improved to the 110s with a heart rate of 103. 2025: Discussed with Darion Rodriguez PA-C. Is agreeable with admission to Dr. Miller. Procedures EKG Prior to Arrival: Yes Sepsis Criteria SIRS Criteria (2 or more): Heart rate over 90, WBC > 87832, < 4000 or > 10% bands Sepsis Criteria (SIRS+source): Infect source susp/known Severe Sepsis (+one): Lactate >2, Acute Oliguria/Renal Failure Criteria Outcome: Meets severe sepsis criteria Diagnosis Primary Impression: Pressure ulcer of both heels, stage 2 Additional Impressions: Severe sepsis Acute kidney injury Admitting Information Admitting Physician Requests: Admit Sanket Santana Dec 09, 2016 18:20
[2016-12-09] MEDS ORDERED: ONDANSETRON HCL 4 MG/2 ML VIAL IVP ONE (18:30)
--- NOTE | 2016-12-09 18:34 | PD ---
Physical Exam Date Seen by Provider: Dec 09, 2016 Time Seen by Provider: 18:20 Narrative Patient seen and evaluated with Sanket Santana PA-C. Patient presents with his with complaints of bilateral heel pressure ulcers and weakness. This is a 81-year-old gentleman who status post left knee replacement on November 16. Patient was seen and treated for rehabilitation at [facility]. states that he was released from [facility] and since then he's been progressively weak and not feeling well. Apparently when the home health nurse arrived at home, she noted him to be extremely weak and then also noted the bilateral heel pressure ulcers and thought that the left ulcer was beginning to get infected. As no reported fevers, chills. He has had very little appetite. He states he' s been drinking 48 ounce glasses of water per day. Patient's states that he's lost 10 pounds since being at [facility]. Data Data Last Documented VS Vital Signs Date Time Temp Pulse Resp B/P Pulse Ox O2 Delivery O2 Flow Rate FiO2 12/09/16 18:51 98 Nasal Cannula 2 12/09/16 18:48 98.0 108 20 97/56 Orders Electrocardiogram (12/09/16 ) Complete Blood Count With Diff (12/09/16 18:17) Comprehensive Metabolic Panel (12/09/16 18:17) Prothrombin Time / Inr (Pt) (12/09/16 18:17) Act Partial Throm Time (Ptt) (12/09/16 18:17) Lactic Acid Sepsis Protocol (12/09/16 18:17) Magnesium (Mg) (12/09/16 18:17) Urinalysis - C+S If Indicated (12/09/16 18:17) Blood Culture (12/09/16 18:17) Chest, Single Ap (12/09/16 18:17) Blood Glucose (12/09/16 18:17) Ecg Monitoring (12/09/16 18:17) Iv Access Insert/Monitor (12/09/16 18:17) Oximetry (12/09/16 18:17) Oxygen Administration (12/09/16 18:17) Westergren Sedimentation Rate (12/09/16 18:17) C-Reactive Protein (Crp) (12/09/16 18:17) Foot, Heel Only ([id number]) (12/09/16 ) Sodium Chlor 0.9% 1000 Ml Inj (Ns 1000 M (12/09/16 18:17) Ondansetron Inj (Zofran Inj) (12/09/16 18:30) Sodium Chlor 0.9% 1000 Ml Inj (Ns 1000 M (12/09/16 18:17) Wound Culture And Gram Stain (12/09/16 18:21) MDM Medical Record Reviewed: Yes Supervised Visit with KHAI: Yes Differential Diagnosis Dehydration versus sepsis versus osteomyelitis Narrative Course 81-year-old gentleman status post left knee replacement, presents from home with complaints of generalized weakness greater than 20 pound weight loss and severe dehydration. Patient also noted to have bilateral heel pressure ulcers that were present at the rehabilitation facility. The patient did fly appears to be dehydrated with tachycardia and hypotension. He's been given hydration replacement. Labs and studies are pending at this time. Sanket Turcios will evaluate the labs and admit the patient to the hospitalist service. He will discuss the findings with Dr. Charlotte House, physician replacing this physician. Diagnosis Primary Impression: Severe dehydration Additional Impressions: Pressure ulcer of both heels, stage 2 Status post total left knee replacement Amos Gurrola MD Dec 09, 2016 18:34
[2016-12-09 18:47] VITALS: BP 97/56; PULSE 111; RESP 20; O2SAT 94
[2016-12-09 18:48] VITALS: BP 97/56; PULSE 108; RESP 20; TEMP 98; O2SAT 94
--- NOTE | 2016-12-09 18:53 | RADRPT ---
EXAM DATE/TIME: 12/09/2016 18:47 [facility] COMPARISON: No previous studies available for comparison. INDICATIONS : Fever. MEDICAL HISTORY : Hypertension. SURGICAL HISTORY : None. ENCOUNTER: Initial ACUITY: 1 day PAIN SCORE: 0/10 LOCATION: chest FINDINGS: A single view of the chest demonstrates the lungs to be symmetrically aerated without evidence of mas s, infiltrate or effusion. The cardiomediastinal contours are unremarkable. Osseous structures are intact. CONCLUSION: No acute disease. Kingsley Dupree MD on December 09, 2016 at 18:51 Board Certified Radiologist. This report was verified electronically.
--- NOTE | 2016-12-09 18:57 | RADRPT ---
EXAM DATE/TIME: 12/09/2016 18:44 [facility] COMPARISON: No previous studies available for comparison. INDICATIONS : Left heel pain, no known injury. MEDICAL HISTORY : None. SURGICAL HISTORY : None. ENCOUNTER: Initial ACUITY: 3 weeks PAIN SCORE: 6/10 LOCATION: Left heel. FINDINGS: Two view examination of the left heel demonstrates the trabecula to be intact with no evidence of fra cture. Soft tissue swelling. Vascular calcifications. There is a normal calcaneal angle. The soft ti ssues are of normal thickness. CONCLUSION: Unremarkable calcaneus. Kingsley Dupree MD on December 09, 2016 at 18:53 Board Certified Radiologist. This report was verified electronically.
[2016-12-09] MEDS ORDERED: MULT-7 PO (19:05)
[2016-12-09] MEDS ORDERED: PROB1TAB PO (19:05)
[2016-12-09] MEDS ORDERED: CO Q30CA PO (19:06)
[2016-12-09] MEDS ORDERED: FISH1000 PO (19:06)
[2016-12-09 19:18] VITALS: BP 102/53; PULSE 105; RESP 18; TEMP 97.9; O2SAT 95
[2016-12-09 19:24] LABS: AUTOMATED NEUTROPHIL # 9.6 TH/MM3 (1.8-7.7); BASOPHIL # 0.1 TH/MM3 (0-0.2); BASOPHIL % 0.6 % (0.0-2.0); EOSINOPHIL # 0.2 TH/MM3 (0-0.4); HEMATOCRIT 36.1 % (39.0-51.0); HEMO FLAGS DIFF FINAL; LYMPH % 9.6 % (9.0-44.0); LYMPHOCYTE # 1.2 TH/MM3 (1.0-4.8); MEAN CELL VOLUME 95.2 FL (80.0-100.0); MEAN CORPUSCULAR HEMOGLOBIN 32.1 PG (27.0-34.0); MEAN CORPUSCULAR HGB CONC 33.7 % (32.0-36.0); MONO % 8.6 % (0.0-8.0); NEUT % 79.2 % (16.0-70.0); PLATELET COUNT 321 TH/MM3 (150-450); RED BLOOD COUNT 3.79 MIL/MM3 (4.50-5.90); WHITE BLOOD COUNT 12.1 TH/MM3 (4.0-11.0)
[2016-12-09 19:31] LABS: APTT (PATIENT) 28.8 SEC (24.3-30.1); PROTHROMBIN TIME - PATIENT 11.5 SEC (9.8-11.6)
[2016-12-09 19:43] LABS: ALT (GPT) 53 U/L (12-78); ANION GAP 12 MEQ/L (5-15); AST (GOT) 32 U/L (15-37); BLOOD UREA NITROGEN 51 MG/DL (7-18); CHLORIDE 102 MEQ/L (98-107); GLOMERULAR FILTRATION RATE 19 ML/MIN (>89); MAGNESIUM 2.1 MG/DL (1.5-2.5); POTASSIUM 4.5 MEQ/L (3.5-5.1); SODIUM (NA) 141 MEQ/L (136-145)
[2016-12-09 19:45] LABS: ALKALINE PHOSPHATASE 135 U/L (45-117); TOTAL BILIRUBIN ADULT 1.5 MG/DL (0.2-1.0)
[2016-12-09] MEDS ORDERED: PIPERACIL-TAZO 2.25 GM PREMIX 50 ML IV ONE (20:00)
[2016-12-09] MEDS ORDERED: VANCOMYCIN INJ 1,000 MG in SODIUM CHLOR 0.9% 250 ML INJ 250 ML IV ONE (20:00)
[2016-12-09 20:30] VITALS: BP 107/56; PULSE 104; RESP 18; O2SAT 96
[2016-12-09 21:04] LABS: LACTIC ACID GHOST NOT REPORTABLE
[2016-12-09 21:22] LABS: BLOOD, URINE NEG (NEG); GLUCOSE,URINE NEG (NEG); HYALINE CAST, URINE 2 /lpf (RARE); KETONE, URINE NEG (NEG); MUCUS URINE FEW /lpf (OCC); NITRITE,URINE NEG (NEG); SQUAMOUS EPITHELIAL CELL URINE <1 /hpf (0-5); URINE COLOR YELLOW (YELLW/STRAW)
[2016-12-09 21:24] LABS: COMMENT (UR) CATH-CULT NOT IND; CULTURE IF INDICATED CATH CULTURE NOT IND
[2016-12-09 22:00] VITALS: BP 98/53; PULSE 103; RESP 18; O2SAT 98
[2016-12-09] MEDS ORDERED: ONDANSETRON HCL 4 MG/2 ML VIAL IVP PRN (22:15)
[2016-12-09] MEDS ORDERED: SODIUM CHLORIDE 0.9% FLUSH 5 ML FLUSH FLUSH PRN (22:15)
[2016-12-09] MEDS ORDERED: Vancomycin Consult Pharmacy 1 EA OTHER SCH (22:15)
[2016-12-09] MEDS ORDERED: SENNOSIDES 8.6 MG TAB PO PRN (22:15)
[2016-12-09] MEDS ORDERED: ACETAMINOPHEN 325 MG TAB PO PRN ×2 (22:15)
[2016-12-09] MEDS ORDERED: Custom Consult Pharmacy 1 EA OTHER SCH (22:15)
[2016-12-09] MEDS ORDERED: NALOXONE HCL 0.4 MG/ML AMP IV PRN (22:15)
[2016-12-09] MEDS: SODIUM CHLOR 0.9% 1000 ML INJ 1,000 ML IV SCH (23:04)
[2016-12-09] MEDS: HEPARIN SODIUM - SQ 10,000 UNITS/ML VIAL SQ SCH (23:04)
[2016-12-10] VITALS (8 sets, daily range): BP systolic 97–126; BP diastolic 55–58; PULSE 92–104; RESP 17–20; TEMP 98–98.1; O2SAT 92–99
--- NOTE | 2016-12-10 01:27 | RADRPT ---
EXAM DATE/TIME: 12/09/2016 23:23 [facility] COMPARISON: No previous studies available for comparison. INDICATIONS : Increased BUN/creatinine. MEDICAL HISTORY : Hypertension. Arthritis. Skin cancer. Born with only left kidney. SURGICAL HISTORY : Appendectomy. Total knee replacement, left. Bilateral cataract surgery. Lesion on vocal cord remove d. Skin cancer from nose and under right eye removed. ENCOUNTER: Initial ACUITY: 1 day PAIN SCORE: 0/10 LOCATION: Bilateral flank MEASUREMENTS: RIGHT KIDNEY: Was not born with right kidney LEFT KIDNEY: 12.3 x 4.7 x 6.6 cm FINDINGS: RIGHT KIDNEY: Nonvisualization of the right kidney. Patient states he was born with only one kidney. LEFT KIDNEY: Renal cortex is normal in thickness and echotexture. No hydronephrosis, stone, or mass. Benign-appe aring 1.2 x 1.1 x 1.3 cm cortical cyst in the lower pole. BLADDER: Within normal limits given the degree of distension. CONCLUSION: 1. 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 2. Except for a 1.3 cm cyst in the lower pole, left kidney is sonographically normal. Efe Adame MD on December 10, 2016 at 1:23 Board Certified Radiologist. This report was verified electronically.
[2016-12-10] MEDS: PIPERACIL-TAZO 2.25 GM PREMIX 50 ML IV SCH ×4 (03:27→21:20)
[2016-12-10] MEDS: SODIUM CHLOR 0.9% 1000 ML INJ 1,000 ML IV SCH ×2 (08:06→10:44)
[2016-12-10] MEDS: SODIUM CHLORIDE 0.9% FLUSH 5 ML FLUSH FLUSH SCH ×2 (09:00→21:00)
[2016-12-10 09:02] LABS: AUTOMATED NEUTROPHIL # 6.6 TH/MM3 (1.8-7.7); BASOPHIL % 0.5 % (0.0-2.0); EOSINOPHIL # 0.2 TH/MM3 (0-0.4); EOSINOPHIL % 2.7 % (0.0-4.0); HEMATOCRIT 32.8 % (39.0-51.0); HEMO FLAGS DIFF FINAL; LYMPH % 9.4 % (9.0-44.0); LYMPHOCYTE # 0.8 TH/MM3 (1.0-4.8); MEAN CELL VOLUME 96.7 FL (80.0-100.0); MEAN CORPUSCULAR HEMOGLOBIN 32.2 PG (27.0-34.0); MEAN CORPUSCULAR HGB CONC 33.3 % (32.0-36.0); MONO % 8.1 % (0.0-8.0); NEUT % 79.3 % (16.0-70.0); PLATELET COUNT 250 TH/MM3 (150-450); RED BLOOD COUNT 3.39 MIL/MM3 (4.50-5.90); RED CELL DISTRIBUTION WIDTH 14.1 % (11.6-17.2); WHITE BLOOD COUNT 8.3 TH/MM3 (4.0-11.0)
[2016-12-10 09:15] LABS: BICARBONATE 25.1 MEQ/L (21.0-32.0); POTASSIUM 4.6 MEQ/L (3.5-5.1)
--- NOTE | 2016-12-10 09:57 | MH ---
cc: ALIX METZ MD DATE OF ADMISSION: 12/09/2016 DATE OF 1935 CHIEF COMPLAINT Generalized weakness. Bilateral pressure ulcers on heels. TRAVEL IN THE LAST 30 DAYS None. HISTORY OF PRESENT ILLNESS This is a pleasant 81-year-old white male who had been in his usual state of health up until mid-November. He went into the hospital and had a left total knee replacement and went to [facility] for his post-care for strengthening. The patient received rehab during that period of time but still struggled with some decreased appetite which included decreased p.o. intake. He did still complain of some generalized weakness and according to the record had a 10-pound weight loss while he was there. The patient was released from [facility] to home but still is struggling with some of the same symptoms of generalized weakness and decreased appetite. The and patient noted that he had pressure sores on his heels bilateral which are now open and oozing. The patient was seen per his PCP on 12/09/2016, his recommendation was to follow up in the hospital for followup and evaluation in the hospital setting. The patient is alert, resting in the bed, answers simple questions appropriately. He is a fair historian and since there is no one with him some of this information is being gathered from the record. The patient's PCP is Dr. Valenzuela and his orthopedist is Dr. Orozco. Currently the patient denies any chest pain. No shortness of breath and no headache. The patient also denies any fever or cough. The patient is positive for some decreased appetite and some mild nausea. PAST MEDICAL HISTORY 1. Medical history includes skin cancer under right eye and nose. 2. Arthritis. 3. Degenerative disk disease with special attention to the low back pain around L3 and neck pain. PAST SURGICAL HISTORY 1. Recent left total knee replacement November 16. 2. Abdominal surgery. 3. Cataract surgery. 4. Oral surgery. 5. Lesion on vocal cord removed. ALLERGIES No known reported. MEDICATIONS 1. Coenzyme Q10. 2. Fish oil. 3. Vitamins. 4. Probiotics. 5. Valsartan. 6. Hydrochlorothiazide. SOCIAL HISTORY Tobacco abuse in his early years but nothing in the past 40-45. Occasional alcohol usage with beer and wine. Patient before his surgical procedure was living at home with his . FAMILY HISTORY Noncontributory. REVIEW OF SYSTEMS A 10-point review of systems was done. Positives include generalized weakness. Bilateral pressure ulcers on heals. Recent incision left knee secured with Steri-Strips. All other systems negative. PHYSICAL EXAMINATION VITAL SIGNS: Temperature is 98.1, pulse 94, respirations 17, blood pressure 126/57. Initially on admission pulse was 104, respirations 18, blood pressure 107/56. O2 sat 99 on room air. Has been using O2 per 2 liters nasal cannula p.r.n. GENERAL: Slim but well-developed white male who looks to be his stated age, resting in the bed in no acute distress. SKIN: Slightly pale, warm and dry. Stage I pressure ulcer on the right heel. Stage II-III according to the record on the left heel. Positive for some drainage and possible mild necrosis. Left knee incision clean, dry and intact with no erythema. HEENT: Atraumatic, normocephalic. PERRLA. No scleral icterus. No oral drainage. Mucous membranes are pink and moist. NECK: Supple. No JVD. CARDIOVASCULAR: S1, S2. Regular rate and rhythm. Borderline tachycardia. No murmurs, rubs or gallops. RESPIRATORY: Essentially clear to auscultation anteriorly and posteriorly with no wheezes, rales or rhonchi. GI: Abdomen is soft, nontender, nondistended. Flat. Active bowel sounds in all four quads. MUSCULOSKELETAL: He can move his extremities on command and with purpose. He can overcome resistance with his lower extremities. Equal hand gum rolling machine tender. NEUROLOGIC: He is alert, oriented x 3. Speech is clear. PSYCHOLOGICAL: Judgment and mood normal. DIAGNOSTIC DATA On 12/09/2016 - WBC 12.1, RBC 3.79, hemoglobin 12.2, hematocrit 36.1, platelet count 321, neutrophil auto count 79.2, monocyte auto count 8.6. PT/INR 1. Chemistry - Sodium 141, potassium 4.5, chloride 102, carbon dioxide 27, amnion gap 12, BUN 51, creatinine 3.08. Random glucose 113, lactic acid 2.2. Drawn again 4 hours later 0.9, total bilirubin 1.5, alkaline phosphatase 135, C-reactive protein 14.3, albumin 2.7. Urine is yellow, clear, pH is 5, specific gravity 1.012; negative for glucose, protein, ketones, occult blood, nitrites bilirubin and leukocyte esterase. Culture is not indicated. IMAGING STUDIES Renal ultrasound, congenital absence of the right kidney. A 1.3 cm cyst in the lower pole. Left kidney is normal. CHEST X-RAY No acute disease. FOOT X-RAY Unremarkable calcaneus. ASSESSMENT AND PLAN 1. Ps a pressure ulcers bilateral heels, Stage II. 2. Lactic acid sepsis, possibly secondary to soft tissue infection. 3. Acute kidney injury. 4. Hypertension. 5. Osteoarthritis. 6. Dehydration. PLAN 1. Admit to inpatient status. 2. We will monitor his vital signs q. 4. 3. Renal diet. 4. Bowel regimen. 5. DVT prophylaxis with heparin subcu. 6. We will consult Wound Care for their expert opinion for bilateral heels. 7. We will start the patient on antibiotics which will include Zosyn and vancomycin. 8. We will monitor his labs in a.m. and as warranted. 9. The patient can have O2. 10. Reconcile his medications. 11. ECG monitoring. 12. The patient will need further evaluation for his acute kidney injury as well as any of the abnormal labs that were found this a.m. To my knowledge the patient is full code, full aggressive care and we will follow. This information will be discussed with Dr. Metz. Dictated by: JI Carvalho MD CECILIA Nava/TRICIA /8:28 AM /12:26 PM
--- NOTE | 2016-12-10 10:11 | EKG ---
Date Performed: 12/09/2016 Time Performed: 18:19:30 PTAGE: 81 years EKG: SINUS TACHYCARDIA ABNORMAL RHYTHM ECG NO PREVIOUS TRACING DOCTOR: Moises Johnson Interpretating Date/Time 12/10/2016 10:08:40
[2016-12-10] MEDS: HEPARIN SODIUM - SQ 10,000 UNITS/ML VIAL SQ SCH ×2 (10:43→21:20)
--- NOTE | 2016-12-10 11:30 | HP.UPD ---
H&P Update Note This is a very pleasant 81-year-old male who was seen by the undersigned earlier today at the emergency department at [place] room a 6 in the presence of his . The patient had a recent left-sided total knee replacement and went subsequently to rehabilitation. He has been home for about a couple days. Home health nurse saw him yesterday and was very concerned about an ulcer on his left heel also has a small blister on the right heel. She called his primary physician and he was recommended to come to the emergency room. He has a significant unstageable ulcer in the left heel. Is being admitted for IV antibiotics and podiatry evaluation. Also the heels are to be floated at all times. Full history and physical to follow Ganesh Yusuf MD Dec 10, 2016 11:25
[2016-12-10] MEDS ORDERED: traMADol HCL 50 MG TAB PO PRN ×2 (11:45)
[2016-12-10] MEDS: SODIUM CHLOR 0.45% 1000 ML INJ 1,000 ML IV SCH (12:13)
--- NOTE | 2016-12-10 21:13 | PD.CONS ---
History of Present Illness Service podiatry Consult Requested By Dr Yusuf Reason for Consult Bilateral heel ulcers Primary Care Physician Non-Staff Diagnoses: History of Present Illness Patient and states that he developed pressure ulcers on heels in rehab after hip replacement. L heel ulcer has had redness and drainage which were concerning to his and doctors. He currently has heels floating off two pillows and is awake/alert. Past Family Social History Allergies: Coded Allergies: No Known Allergies (Unverified , 12/09/16) Past Medical History Skin cancer under right eye and nose. Arthritis. Degenerative disk disease with special attention to the low back pain around L3 and neck pain. Past Surgical History Recent joint replacement November 16. Abdominal surgery. Cataract surgery. Oral surgery. Lesion on vocal cord removed. Active Ordered Medications Current Medications Medications (Trade) Dose Ordered Sig/Ceelste Route Start Time Stop Time Status Last Admin (NS Flush) 2 ml UNSCH PRN FLUSH 12/09/16 22:15 (NS Flush) 2 ml BID FLUSH 12/10/16 09:00 (Tylenol) 650 mg Q4H PRN PO 12/09/16 22:15 (Zofran Inj) 4 mg Q6H PRN IVP 12/09/16 22:15 (Senokot) 17.2 mg Q12H PRN PO 12/09/16 22:15 (Heparin Inj) 5,000 units Q12H SQ 12/09/16 23:00 12/10/16 10:43 (Tylenol) 650 mg Q6H PRN PO 12/09/16 22:15 Naloxone HCl 0.4 mg 0.4 mg UNSCH PRN IV 12/09/16 22:15 Pharmacy Profile Note 0 ml @ 0 mls/hr UNSCH OTHER 12/09/16 22:15 Pharmacy Profile Note 0 ml @ 0 mls/hr UNSCH OTHER 12/09/16 22:15 (Zosyn 2.25 Gm Premix) 50 ml @ 100 mls/hr Q6H IV 12/10/16 03:00 12/10/16 15:24 (Theragran M Tab) 1 tab DAILY PO 12/11/16 09:00 (Vitamin D3) 2,000 units DAILY PO 12/11/16 09:00 (Lactinex) 1 tab BID PO 12/10/16 21:00 Tramadol HCl 50 mg 50 mg Q4H PRN PO 12/10/16 11:45 (1/2 NS 1000 ml Inj) 1,000 ml @ 42 mls/hr [id number] IV 12/10/16 11:45 12/10/16 12:13 (Diovan) 160 mg DAILY PO 12/11/16 09:00 (Microzide) 12.5 mg DAILY PO 12/11/16 09:00 Social History Tobacco abuse early in life Occasional alcohol Lives at home now, d/c from rehab/nursing facility Physical Exam Vital Signs Vital Signs Date Time Temp Pulse Resp B/P Pulse Ox O2 Delivery O2 Flow Rate FiO2 12/10/16 20:02 95 Nasal Cannula 2.00 12/10/16 16:00 98.1 100 18 114/56 99 12/10/16 13:40 98.1 100 20 120/58 99 12/10/16 08:00 98.1 94 17 126/57 99 Nasal Cannula 2 12/10/16 08:00 98.1 94 17 126/57 99 Nasal Cannula 2 12/10/16 05:40 92 18 115/55 98 Nasal Cannula 3 12/10/16 02:09 95 18 97/55 99 Nasal Cannula 2 12/10/16 00:00 95 18 99/55 98 Nasal Cannula 3 12/09/16 22:00 103 18 98/53 98 Room Air Physical Exam Dry bandage in place bilateral feet. The R heel has small 1.5cm bullous-appearing area with no visible drainage at this time. No necrotic tissue. No erythema. No sign of infection present. The L heel has ulceration with necrotic center and surrounding fibrotic tissue. measures approx 3 cm diameter. No purulence. Not boggy. There is surrounding erythema locally extending approx an additional 4cm all around the wound area. Tenderness to palpation. Sensation intact. Palpable DP pulse, I do not feel palpable PT pulse. Skin temperature is warm. Thin atrophic appearance to skin and dry with no hair growth. Bilateral 1st MTP joints medially appear to have underlying gouty tophi material. No open area. Laboratory Laboratory Tests Test 12/09/16 12/10/16 21:35 08:05 Lactic Acid Level 0.9 White Blood Count 8.3 Red Blood Count 3.39 Hemoglobin 10.9 Hematocrit 32.8 Mean Corpuscular Volume 96.7 Mean Corpuscular Hemoglobin 32.2 Mean Corpuscular Hemoglobin 33.3 Concent Red Cell Distribution Width 14.1 Platelet Count 250 Mean Platelet Volume 8.0 Neutrophils (%) (Auto) 79.3 Lymphocytes (%) (Auto) 9.4 Monocytes (%) (Auto) 8.1 Eosinophils (%) (Auto) 2.7 Basophils (%) (Auto) 0.5 Neutrophils # (Auto) 6.6 Lymphocytes # (Auto) 0.8 Monocytes # (Auto) 0.7 Eosinophils # (Auto) 0.2 Basophils # (Auto) 0.0 CBC Comment DIFF FINAL Differential Comment Sodium Level 143 Potassium Level 4.6 Chloride Level 109 Carbon Dioxide Level 25.1 Anion Gap 9 Blood Urea Nitrogen 43 Creatinine 2.44 Estimat Glomerular Filtration 25 Rate Random Glucose 61 Calcium Level 8.7 Phosphorus Level 3.5 Date/Time Procedure Status Source Growth 12/09/16 18:30 Gram Stain - Final Resulted Wound Heel 12/09/16 18:30 Wound Culture - Preliminary Resulted Staphylococcus Aureus Gram Negative Arnav 12/09/16 18:30 Aerobic Blood Culture - Preliminary Resulted Blood Peripheral NO GROWTH IN 1 DAY 12/09/16 18:30 Anaerobic Blood Culture - Preliminary Resulted Blood Peripheral NO GROWTH IN 1 DAY Result Diagram: 12/10/16 0805 12/10/16 0805 Imaging Last Impressions Renal Ultrasound 12/10/16 0000 Signed Impressions: Service Date/Time: Friday, December 09, 2016 23:23 - CONCLUSION: 1. 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 2. Except for a 1.3 cm cyst in the lower pole, left kidney is sonographically normal. Efe Adame MD Chest X-Ray 12/09/167 Signed Impressions: Service Date/Time: Friday, December 09, 2016 18:47 - CONCLUSION: No acute disease. Kingsley Dupree MD Foot X-Ray 12/09/16 0000 Signed Impressions: Service Date/Time: Friday, December 09, 2016 18:44 - CONCLUSION: Unremarkable calcaneus. Kingsley Dupree MD Assessment and Plan Assessment and Plan Cellulitis L heel Ulcers bilateral heels Continue heel offloading and floating Daily betadine wet to dry R heel to continue to keep stable Daily santyl, adaptic, 4x4, cling, tape L heel Continue IV antibiotics. No surgical intervention planned at this time. Continue local wound care and monitoring for infection Vascular evaluation/input appreciated Altagracia Christy DPM Dec 10, 2016 21:13
[2016-12-10] MEDS: LACTOBACILLUS ACIDOPHILUS TAB PO SCH (21:20)
[2016-12-11] VITALS: BP 98/54; PULSE 99; RESP 18; TEMP 97.1; O2SAT 93
--- NOTE | 2016-12-11 00:50 | PD.CAR.PN ---
CVT Progress Note Subjective/Hospital Course: Consult received Full evaluation of the patient and dictation to follow Zelda De Leon Objective: Vital Signs Date Time Temp Pulse Resp B/P Pulse Ox O2 Delivery O2 Flow Rate FiO2 12/10/16 20:02 95 Nasal Cannula 2.00 12/10/16 20:00 98.0 104 18 104/56 92 12/10/16 16:00 98.1 100 18 114/56 99 12/10/16 13:40 98.1 100 20 120/58 99 12/10/16 08:00 98.1 94 17 126/57 99 Nasal Cannula 2 12/10/16 08:00 98.1 94 17 126/57 99 Nasal Cannula 2 12/10/16 05:40 92 18 115/55 98 Nasal Cannula 3 12/10/16 02:09 95 18 97/55 99 Nasal Cannula 2 Result Diagram: 12/10/1680412/10/16804 Boris Amaro MD Dec 11, 2016 00:50
[2016-12-11 04:00] VITALS: BP 117/57; PULSE 104; RESP 18; TEMP 98.2; O2SAT 94
[2016-12-11] MEDS: PIPERACIL-TAZO 2.25 GM PREMIX 50 ML IV SCH ×4 (04:03→20:20)
[2016-12-11 07:59] LABS: AUTOMATED NEUTROPHIL # 6.6 TH/MM3 (1.8-7.7); BASOPHIL % 0.5 % (0.0-2.0); EOSINOPHIL # 0.2 TH/MM3 (0-0.4); EOSINOPHIL % 2.2 % (0.0-4.0); HEMATOCRIT 34.1 % (39.0-51.0); HEMO FLAGS DIFF FINAL; LYMPH % 9.4 % (9.0-44.0); LYMPHOCYTE # 0.8 TH/MM3 (1.0-4.8); MEAN CELL VOLUME 94.9 FL (80.0-100.0); MEAN CORPUSCULAR HEMOGLOBIN 31.9 PG (27.0-34.0); MEAN CORPUSCULAR HGB CONC 33.6 % (32.0-36.0); MONO % 8.4 % (0.0-8.0); NEUT % 79.5 % (16.0-70.0); PLATELET COUNT 271 TH/MM3 (150-450); RED CELL DISTRIBUTION WIDTH 14.3 % (11.6-17.2); WHITE BLOOD COUNT 8.4 TH/MM3 (4.0-11.0)
[2016-12-11 08:00] VITALS: BP 134/61; PULSE 107; RESP 22; TEMP 98.2; O2SAT 97
[2016-12-11 08:15] LABS: ANION GAP 12 MEQ/L (5-15); BICARBONATE 24.6 MEQ/L (21.0-32.0); BLOOD UREA NITROGEN 29 MG/DL (7-18); CHLORIDE 106 MEQ/L (98-107); GLOMERULAR FILTRATION RATE 33 ML/MIN (>89); POTASSIUM 4.3 MEQ/L (3.5-5.1); SODIUM (NA) 143 MEQ/L (136-145); TRANSFERRIN IRON PROFILE 103 MG/DL (200-360)
[2016-12-11] MEDS: SODIUM CHLORIDE 0.9% FLUSH 5 ML FLUSH FLUSH SCH ×2 (08:17→20:21)
[2016-12-11] MEDS: HYDROCHLOROTHIAZIDE 12.5 MG CAP PO SCH (08:17)
[2016-12-11] MEDS: CHOLECALCIFEROL (VIT D3) 1000 UNIT TAB PO SCH (08:17)
[2016-12-11] MEDS: VALSARTAN 160 MG TAB PO SCH (08:17)
[2016-12-11] MEDS: LACTOBACILLUS ACIDOPHILUS TAB PO SCH ×2 (08:17→20:19)
[2016-12-11] MEDS: MULTIVITAMINS/MINERALS THERAPEUTIC TAB PO SCH (08:18)
[2016-12-11] MEDS: SODIUM CHLOR 0.45% 1000 ML INJ 1,000 ML IV SCH (08:19)
[2016-12-11] MEDS ORDERED: NON-FORMULARY DRUG (Valsartan-Hydrochlorothiazide 1 TAB) PO SCH (09:00)
[2016-12-11] MEDS ORDERED: NON-FORMULARY DRUG (Omega-3 Fatty Acids (Fish Oil) 1,000 MG) PO SCH (09:00)
[2016-12-11] MEDS ORDERED: VITAMINS PO SCH (09:00)
[2016-12-11] MEDS ORDERED: NON-FORMULARY DRUG (Coenzyme Q10 (Ubidecarenone) (Co Q-10) 1 CAP) PO SCH (09:00)
[2016-12-11] MEDS ORDERED: MULTIPLE MINERALS PO SCH (09:00)
--- NOTE | 2016-12-11 10:59 | HHI.PR ---
Subjective Subjective Remarks Sitting in bed Alert, but quiet spoken Forgetful, not shifting body weight in bed Forgets to drink water/fluids Generalized back pain in room (Precious Marquez) Review of Systems Constitutional Constitutional: Fatigue (generalized), Weakness Constitutional Remarks 10 point ROS done positives noted fatigue weakness forgetfulness bilateral heel pressure sores, systems negative or unremarkable (Precious Marquez) Musculoskeletal MS: Weakness, Stiffness (recent left knee replacement), Discomfort/Pain ( Precious Marquez) Integumentary Skin: Wounds (bilateral heels) (Precious Marquez) Neurologic Neurologic Remarks Forgetful to shift weight in bed, moves extremities to prevent pressure sores, forgets to drink fluids (Precious Marquez) Psychiatric Psychiatric Remarks Flat affect, but does answer simple questions (Precious Marquez) Vitals/Results Intake & Output 12/10/16 12/10/16 12/11/16 15:00 23:00 07:00 Intake Total 120 ml 583 ml Output Total 675 ml 900 ml Balance -555 ml -317 ml Intake Oral 120 ml 120 ml IV Total 463 ml Output Urine Total 675 ml 900 ml # Voids 1 # Bowel Movements 0 0 Vital Signs Vital Signs Date Time Temp Pulse Resp B/P Pulse Ox O2 Delivery O2 Flow Rate FiO2 12/11/16 08:00 98.2 107 22 134/61 97 12/11/16 04:00 98.2 104 18 117/57 94 12/11/16 00:00 97.1 99 18 98/54 93 12/10/16 20:02 95 Nasal Cannula 2.00 12/10/16 20:00 98.0 104 18 104/56 92 12/10/16 16:00 98.1 100 18 114/56 99 12/10/16 13:40 98.1 100 20 120/58 99 (Precious Marquez) CBC/BMP: 12/11/16 0643 12/11/16 0643 Lab Results Laboratory Tests Test 12/11/16 06:43 White Blood Count 8.4 TH/MM3 Red Blood Count 3.60 MIL/MM3 Hemoglobin 11.5 GM/DL Hematocrit 34.1 % Mean Corpuscular Volume 94.9 FL Mean Corpuscular Hemoglobin 31.9 PG Mean Corpuscular Hemoglobin 33.6 % Concent Red Cell Distribution Width 14.3 % Platelet Count 271 TH/MM3 Mean Platelet Volume 7.7 FL Neutrophils (%) (Auto) 79.5 % Lymphocytes (%) (Auto) 9.4 % Monocytes (%) (Auto) 8.4 % Eosinophils (%) (Auto) 2.2 % Basophils (%) (Auto) 0.5 % Neutrophils # (Auto) 6.6 TH/MM3 Lymphocytes # (Auto) 0.8 TH/MM3 Monocytes # (Auto) 0.7 TH/MM3 Eosinophils # (Auto) 0.2 TH/MM3 Basophils # (Auto) 0.0 TH/MM3 CBC Comment DIFF FINAL Differential Comment Sodium Level 143 MEQ/L Potassium Level 4.3 MEQ/L Chloride Level 106 MEQ/L Carbon Dioxide Level 24.6 MEQ/L Anion Gap 12 MEQ/L Blood Urea Nitrogen 29 MG/DL Creatinine 1.93 MG/DL Estimat Glomerular Filtration 33 ML/MIN Rate Random Glucose 64 MG/DL Calcium Level 9.2 MG/DL Iron Level 44 MCG/DL Total Iron Binding Capacity 144 MCG/DL Percent Iron Saturation 30.5 % Random Vancomycin Level 7.4 COMMENT Imaging Remarks Last Impressions Renal Ultrasound 12/10/16 0000 Signed Impressions: Service Date/Time: Friday, December 09, 2016 23:23 - CONCLUSION: 1. 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 2. Except for a 1.3 cm cyst in the lower pole, left kidney is sonographically normal. Efe Adame MD Chest X-Ray 12/09/161816 Signed Impressions: Service Date/Time: Friday, December 09, 2016 18:47 - CONCLUSION: No acute disease. Kingsley Dupree MD Foot X-Ray 12/09/16 0000 Signed Impressions: Service Date/Time: Friday, December 09, 2016 18:44 - CONCLUSION: Unremarkable calcaneus. Kingsley Dupree MD Current Medications Active Medications Cholecalciferol (Vitamin D3) 2,000 units DAILY PO Last administered on t 08:17; Admin Dose 2,000 UNITS; Start 12/11/16 at 09:00 Collagenase 1 applic 1 applic DAILY TOP; Start 12/11/16 at 09:00 Hydrochlorothiazide (Microzide) 12.5 mg DAILY PO Last administered on 12/11/16 08:17; Admin Dose 12.5 MG; Start 12/11/16 at 09:00 Lactobacillus Acidophilus (Lactinex) 1 tab BID PO Last administered on 08:17; Admin Dose 1 TAB; Start 12/10/16 at 21:00 Multivitamins/ Minerals Therapeutic (Theragran M Tab) 1 tab DAILY PO Last administered on 12/11/16 08:18; Admin Dose 1 TAB; Start 12/11/16 at 09:00 Non-Formulary Medication 1 cap DAILY PO; Start 12/11/16 at 09:00; Stop 12/11/16 at 09:00; Status DC Non-Formulary Medication 1 tab DAILY PO; Start 12/11/16 at 09:00; Stop 12/11/16 at 09:00; Status DC Non-Formulary Medication 1 tab DAILY PO; Start 12/11/16 at 09:00; Status UNV Non-Formulary Medication 1,000 mg DAILY PO; Start 12/11/16 at 09:00; Stop at 09:00; Status DC Sodium Chloride (1/2 NS 1000 ml Inj) 1,000 ml @ 42 mls/hr [id number] IV Last administered on 12/11/16 08:19; Admin Dose 42 MLS/HR; Start 12/10/16 at 11:45 Tramadol HCl (Ultram) 100 mg Q4H PRN PO; Start 12/10/16 at 11:45; Stop 12/10/16 at 11:45; Status DC Tramadol HCl 50 mg 50 mg Q4H PRN PO; Start 12/10/16 at 11:45 Valsartan (Diovan) 160 mg DAILY PO Last administered on 12/11/16 08:17; Admin Dose 160 MG; Start 12/11/16 at 09:00 Vancomycin HCl/ Sodium Chloride (Vancomycin Inj/ NS 250 ml Inj) 250 ml @ 250 mls/hr ONCE ONCE IV; Start 12/11/16 at 11:00; Stop 12/11/16 at 11:59 (Precious Marquez) Physical Exam General General Appearance: Well Developed, Pale ([place],Precious M. VISUAL MERCHANDISING ASSISTANT) Eyes Eye Exam: Pupils Equal, Pupils Reactive ([place] RockPrecious M. VISUAL MERCHANDISING ASSISTANT) Ears & Nose Ears & Nose Exam: Nasal Mucosa [place] (AlmaPrecious M. VISUAL MERCHANDISING ASSISTANT) Throat Throat Exam: Oral Mucosa [place] & Moist ([place] RockPrecious M. VISUAL MERCHANDISING ASSISTANT) Neck Neck Exam: Neck Supple, Trachea Midline ([place] RockPrecious M. VISUAL MERCHANDISING ASSISTANT) Pulmonary Resp Exam: Clear Bilaterally, Rhonchi (few, clears with cough) ([place],Precious M. VISUAL MERCHANDISING ASSISTANT) Cardiology CV Exam: Regular ([place],Precious M. VISUAL MERCHANDISING ASSISTANT) Gastrointestinal/Abdomen GI Exam: Soft, Non-Tender, Bowel Sounds Present ([place] RockPrecious M. VISUAL MERCHANDISING ASSISTANT) Genitourinary Exam: Clear Urine (AlmaPrecious M. VISUAL MERCHANDISING ASSISTANT) Musculoskeletal MS Exam: Joints Intact MS Remarks Recent right knee replacement incision line clean dry and intact ([place],Precious M. VISUAL MERCHANDISING ASSISTANT) Integumentary Skin Remarks Bilateral heel pressure sores, floated ([place] RockPrecious M. VISUAL MERCHANDISING ASSISTANT) Neurologic Neuro Exam: Alert, Awake, Speech Clear (quiet flat affect) Neuro Remarks Forgetful ([place],Precious M. VISUAL MERCHANDISING ASSISTANT) Assessment/Plan Assessment/Plan ASSESSMENT AND PLAN 1. pressure ulcers bilateral heels, unstageable 2. Lactic acid sepsis, possibly secondary to soft tissue infection. 3. Acute kidney injury. 4. Hypertension. 5. Osteoarthritis. 6. Dehydration. 7. Recent left knee replacement 8. Possible Dementia PLAN vital signs and labs reviewed. Hemoglobin stable 11.5 WBC count 8.4, dehydration and acute kidney injury improving. We'll monitor labs Renal diet., Eating small amounts with assistance from . Bowel regimen with stool softeners and laxative Hypertension, stable medical management Osteoarthritis, medical management physical therapy DVT prophylaxis with heparin subcu. We will consult Wound Care for their expert opinion Appreciate network security administrator consult. Plan a care initiated with Joe and wound care team. Heels floated bilateral After speaking with and examining patient, concern is for new diagnosis dementia. Patient is not taking initiative to move about in bed or to change positions in bed when awake. He now has bilateral pressure sores on heels, and some redness noted on his coccyx area. is concerned that these medical things are happening, and doesn't understand why. also states she constantly reminds her to drink and to eat. Patient currently has never been diagnosed with dementia following a and is on no medications. Will have ST do a cognitive eval, to evaluate any early needs for this patient and his medical management. PT evaluation and treat. Patient has had recent left total knee arthroplasty, and rehabilitation. Remains weak and needs mobility and strengthening. Discussed plan of care with Dr. Yusuf, patient seen on his behalf Discussed with patient, and his , approximately 20 minutes in room. Discussed Condition with: Patient, Spouse (Precious Marquez) Assessment/Plan seen and examined by myself,Dr Yusuf , on 12/11/16 Podiatry and vascular surgery consultations noted and appreciated Continue treatment for cellulitis Float both heels No indication for surgery Physical therapy evaluation noted Patient ambulated 2 feet and had to stop because of dizziness Patient himself does not engage in any conversation Rule out dementia Head CT and neurology consultation requested discussed with nurse Discussed with patient's Discussed with mid-level practitioner The exam, history, and the medical decision-making described in the above note were completed with the assistance of the mid-level provider. I reviewed the findings presented. I attest that I had a [id number] encounter with the patient on the same day, and personally performed and documented my assessment and findings in the medical record. (Ganesh Yusuf MD) Precious Marquez Dec 11, 2016 10:59 Ganesh Yusuf MD Dec 12, 2016 12:40
[2016-12-11] MEDS ORDERED: VANCOMYCIN 1,000 MG/NS 250 ML IV ONE ×2 (11:00)
[2016-12-11 12:00] VITALS: BP 98/53; PULSE 138; RESP 20; TEMP 97.2; O2SAT 98
[2016-12-11] MEDS: HEPARIN SODIUM - SQ 10,000 UNITS/ML VIAL SQ SCH ×2 (13:48→20:21)
[2016-12-11 16:00] VITALS: BP 116/59; PULSE 117; RESP 20; TEMP 98.8; O2SAT 94
--- NOTE | 2016-12-11 17:48 | PD.CAR.PN ---
CVT Progress Note Subjective/Hospital Course: Consult received Full evaluation of the patient and dictation to tim De Leon 12/11/16 For details see full dictation however, this patient does not have appreciable peripheral vascular disease and the changes are purely due to compression and bed ridden status, and clearly lacking nursing care at group home facility I agree with Dr. Trice Christy on the management and care of these Nothing to add from the surgical point Objective: Vital Signs Date Time Temp Pulse Resp B/P Pulse Ox O2 Delivery O2 Flow Rate FiO2 12/11/16 16:00 98.8 117 20 116/59 94 12/11/16 12:00 97.2 138 20 98/53 98 12/11/16 08:00 98.2 107 22 134/61 97 12/11/16 04:00 98.2 104 18 117/57 94 12/11/16 00:00 97.1 99 18 98/54 93 12/10/16 20:02 95 Nasal Cannula 2.00 12/10/16 20:00 98.0 104 18 104/56 92 Labs: Laboratory Tests Test 12/11/16 06:43 White Blood Count 8.4 TH/MM3 (4.0-11.0) Red Blood Count 3.60 MIL/MM3 (4.50-5.90) Hemoglobin 11.5 GM/DL (13.0-17.0) Hematocrit 34.1 % (39.0-51.0) Mean Corpuscular Volume 94.9 FL (80.0-100.0) Mean Corpuscular Hemoglobin 31.9 PG (27.0-34.0) Mean Corpuscular Hemoglobin 33.6 % Concent (32.0-36.0) Red Cell Distribution Width 14.3 % (11.6-17.2) Platelet Count 271 TH/MM3 (150-450) Mean Platelet Volume 7.7 FL (7.0-11.0) Neutrophils (%) (Auto) 79.5 % (16.0-70.0) Lymphocytes (%) (Auto) 9.4 % (9.0-44.0) Monocytes (%) (Auto) 8.4 % (0.0-8.0) Eosinophils (%) (Auto) 2.2 % (0.0-4.0) Basophils (%) (Auto) 0.5 % (0.0-2.0) Neutrophils # (Auto) 6.6 TH/MM3 (1.8-7.7) Lymphocytes # (Auto) 0.8 TH/MM3 (1.0-4.8) Monocytes # (Auto) 0.7 TH/MM3 (0-0.9) Eosinophils # (Auto) 0.2 TH/MM3 (0-0.4) Basophils # (Auto) 0.0 TH/MM3 (0-0.2) CBC Comment DIFF FINAL Differential Comment Sodium Level 143 MEQ/L (136-145) Potassium Level 4.3 MEQ/L (3.5-5.1) Chloride Level 106 MEQ/L (98-107) Carbon Dioxide Level 24.6 MEQ/L (21.0-32.0) Anion Gap 12 MEQ/L (5-15) Blood Urea Nitrogen 29 MG/DL (7-18) Creatinine 1.93 MG/DL (0.60-1.30) Estimat Glomerular Filtration 33 ML/MIN (>89) Rate Random Glucose 64 MG/DL (74-106) Calcium Level 9.2 MG/DL (8.5-10.1) Iron Level 44 MCG/DL (65-175) Total Iron Binding Capacity 144 MCG/DL (250-450) Percent Iron Saturation 30.5 % (20-50) Random Vancomycin Level 7.4 COMMENT Result Diagram: 12/11/16 0643 12/11/16 0643 Boris Amaro MD Dec 11, 2016 17:48
[2016-12-11] MEDS: COLLAGENASE OINT 30 GM TUBE TOP SCH (18:12)
--- NOTE | 2016-12-11 19:19 | MB ---
cc: MD KIMBERLY,[facility] DATE OF CONSULTATION: 12/11/2016. REASON FOR CONSULTATION: Gangrene of both heels. Peripheral vascular disease. Bedridden status with functional decline and arthritis. HISTORY OF PRESENT ILLNESS: This pleasant 81-year-old gentleman had a left total knee replacement beginning November of this year. He went to [facility] for rehab. He lost some weight, became very weak, was in a functional decline and then his noted he had pressure sores on both heels. She requested the patient be transferred to the hospital and here he is. The question arises about any possible vascular amputations. PAST MEDICAL HISTORY: 1. Arthritis. 2. Skin cancer. 3. Degenerative arthritic changes in the knees. 4. Lumbosacral syndrome. PAST SURGICAL HISTORY: 1. Above-noted total knee replacement in November of this year. 2. Previous appendectomy. 3. Cataract surgery. 4. Some biopsy of the vocal cords. ALLERGIES: NO KNOWN ALLERGIES. MEDICATIONS: His medications can be found on the record. SOCIAL HISTORY: The patient used to smoke for about 40 years but then stopped. He drinks socially. REVIEW OF SYSTEMS: The patient was doing well before this whole thing started. He still works one day a week. PHYSICAL EXAMINATION: GENERAL: A pleasant 81-year-old gentleman slightly slow. HEAD, EYES, EARS, NOSE, THROAT: Normocephalic and atraumatic. Pupils equal and reactive. Extraocular muscles intact. NECK: The neck is supple. Bilateral carotid pulses. No bruits. CHEST: Bilateral breath sounds. Slightly decreased over both lung sullivan consistent with mild to moderate COPD. HEART: Regular rhythm. ABDOMEN: Soft, patulous. Active bowel sounds. The patient has clearly lost some weight. There is some wrinkling of the skin on the abdominal wall and obviously the patient was heavier earlier. PELVIS: Stable. BACK: No signs of trauma to the back. The patient does not have a decubitus on his back. EXTREMITIES: The patient has palpable femoral, popliteal, dorsalis pedis and posterior tibial pulses. Capillary refill is normal. He has small ulcers on both heels which are pretty shallow going into the fat. NEUROLOGIC: Grossly the patient is intact without lateralization. However, he appears to be fairly weak. IMPRESSION AND RECOMMENDATIONS: 81-year-old gentleman with a heel ulcers. I question if this is peripheral vascular disease. Based on clinical exam and palpable pulses in the upper and lower extremities, this gentleman does not have any significant degree of vascular changes that would lead to this. The heel ulcers are purely a pressure effect associated with poor nursing care in the [facility] and present a point of neglect to the patient. At this point, he is in the hospital and this should improve. Early ambulation an extensive and aggressive physical therapy is mandatory. I agree with Dr. Altagracia Christy on further care and there is nothing I can offer from a vascular point because blood supply is adequate as far as healing is concerned. Thank you very much for the referral. Boris KING/MAE /5:10 PM /7:09 PM
[2016-12-11 20:00] VITALS: BP 129/60; PULSE 110; RESP 16; TEMP 98.8; O2SAT 94
[2016-12-12] VITALS (8 sets, daily range): BP systolic 115–137; BP diastolic 57–65; PULSE 92–107; RESP 16–20; TEMP 97.6–98.6; O2SAT 94–97
[2016-12-12] MEDS: PIPERACIL-TAZO 2.25 GM PREMIX 50 ML IV SCH ×4 (03:39→21:01)
[2016-12-12] MEDS: LACTOBACILLUS ACIDOPHILUS TAB PO SCH ×2 (10:03→21:01)
[2016-12-12] MEDS: CHOLECALCIFEROL (VIT D3) 1000 UNIT TAB PO SCH (10:03)
[2016-12-12] MEDS: VALSARTAN 160 MG TAB PO SCH (10:03)
[2016-12-12] MEDS: MULTIVITAMINS/MINERALS THERAPEUTIC TAB PO SCH (10:03)
[2016-12-12] MEDS: HEPARIN SODIUM - SQ 10,000 UNITS/ML VIAL SQ SCH ×2 (10:04→21:01)
[2016-12-12] MEDS: COLLAGENASE OINT 30 GM TUBE TOP SCH (10:04)
[2016-12-12] MEDS: SODIUM CHLORIDE 0.9% FLUSH 5 ML FLUSH FLUSH SCH ×2 (10:04→21:02)
[2016-12-12] MEDS: HYDROCHLOROTHIAZIDE 12.5 MG CAP PO SCH (10:04)
[2016-12-12] MEDS: SODIUM CHLOR 0.45% 1000 ML INJ 1,000 ML IV SCH (10:04)
--- NOTE | 2016-12-12 12:10 | HHI.PR ---
Subjective Subjective Remarks resting in bed, always lying flat on back. Alert, but quiet spoken Forgetful, not shifting body weight in bed Forgets to drink water/fluids Generalized back pain in room (Precious Marquez) Review of Systems Constitutional Constitutional: Fatigue (generalized), Weakness Constitutional Remarks 10 point ROS done positives noted fatigue weakness forgetfulness bilateral heel pressure sores, systems negative or unremarkable (Precious Marquez) Musculoskeletal MS: Weakness, Stiffness (recent left knee replacement), Discomfort/Pain ( Precious Marquez) Integumentary Skin: Wounds (bilateral heels) (Precious Marquez) Neurologic Neurologic Remarks Forgetful to shift weight in bed, moves extremities to prevent pressure sores, forgets to drink fluids (Precious Marquez) Psychiatric Psychiatric Remarks Flat affect, but does answer simple questions (Precious Marquez) Vitals/Results Intake & Output 12/11/16 12/11/16 12/12/16 15:00 23:00 07:00 Intake Total 0 ml 600 ml 240 ml Output Total 200 ml 300 ml Balance -200 ml 300 ml 240 ml Intake Oral 0 ml 600 ml 240 ml Output Urine Total 200 ml 300 ml # Voids 1 # Bowel Movements 0 Vital Signs Vital Signs Date Time Temp Pulse Resp B/P Pulse Ox O2 Delivery O2 Flow Rate FiO2 12/12/16 08:00 97.6 101 18 137/65 95 12/12/16 04:00 98.2 100 20 125/62 97 12/12/16 01:35 106 12/12/16 00:17 97.9 106 16 127/60 96 12/11/16 20:00 98.8 110 16 129/60 94 12/11/16 16:00 98.8 117 20 116/59 94 (Precious Marquez) CBC/BMP: 12/11/16 0643 12/12/16 0625 Lab Results Laboratory Tests Test 12/12/16 06:25 Creatinine 1.89 MG/DL Estimat Glomerular Filtration 34 ML/MIN Rate Random Vancomycin Level 15.3 COMMENT Current Medications Last Impressions Renal Ultrasound 12/10/16 0000 Signed Impressions: Service Date/Time: Friday, December 09, 2016 23:23 - CONCLUSION: 1. 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 2. Except for a 1.3 cm cyst in the lower pole, left kidney is sonographically normal. Efe Adame MD Chest X-Ray 12/09/16 1817 Signed Impressions: Service Date/Time: Friday, December 09, 2016 18:47 - CONCLUSION: No acute disease. Kingsley Dupree MD Foot X-Ray 12/09/16 0000 Signed Impressions: Service Date/Time: Friday, December 09, 2016 18:44 - CONCLUSION: Unremarkable calcaneus. Kingsley Dupree MD ([place],Precious M. COPY COORDINATOR) Physical Exam General General Appearance: Well Developed, Pale (Alma,Precious M. COPY COORDINATOR) Eyes Eye Exam: Pupils Equal, Pupils Reactive ([place],Precious M. COPY COORDINATOR) Ears & Nose Ears & Nose Exam: Nasal Mucosa [place] (Alma,Precious M. COPY COORDINATOR) Throat Throat Exam: Oral Mucosa [place] & Moist ([place],Precious M. COPY COORDINATOR) Neck Neck Exam: Neck Supple, Trachea Midline (Alma,Precious M. COPY COORDINATOR) Pulmonary Resp Exam: Clear Bilaterally, Rhonchi (few, clears with cough) ([place],Precious M. COPY COORDINATOR) Cardiology CV Exam: Regular (Alma,Precious M. COPY COORDINATOR) Gastrointestinal/Abdomen GI Exam: Soft, Non-Tender, Bowel Sounds Present ([place]ma,Precious M. COPY COORDINATOR) Genitourinary Exam: Clear Urine ([place],Precious M. COPY COORDINATOR) Musculoskeletal MS Exam: Joints Intact MS Remarks Recent right knee replacement incision line clean dry and intact ([place],Precious M. COPY COORDINATOR) Integumentary Skin Remarks Bilateral heel pressure sores, floated ([place],Precious M. COPY COORDINATOR) Neurologic Neuro Exam: Alert, Awake, Speech Clear (quiet flat affect) Neuro Remarks Forgetful ([place],Precious M. COPY COORDINATOR) Assessment/Plan Assessment/Plan ASSESSMENT AND PLAN 1. pressure ulcers bilateral heels, unstageable 2. Lactic acid sepsis, possibly secondary to soft tissue infection. 3. Acute kidney injury. 4. Hypertension. 5. Osteoarthritis. 6. Dehydration. 7. Recent left knee replacement 8. Possible Dementia PLAN vital signs and labs reviewed. Hemoglobin stable 11.5 WBC count 8.4, dehydration and acute kidney injury improving. We'll monitor labs Renal diet., Eating small amounts with assistance from . Bowel regimen with stool softeners and laxative Hypertension, stable medical management Osteoarthritis, medical management physical therapy evaled for treatment DVT prophylaxis with heparin subcu. We will consult Wound Care for their expert opinion Appreciate vocational examiner consult. Plan a care initiated with Santyl and wound care team. Heels floated bilateral After speaking with and examining patient, concern is for new diagnosis dementia. Patient is not taking initiative to move about in bed or to change positions in bed when awake. He now has bilateral pressure sores on heels, and some redness noted on his coccyx area. is concerned that these medical things are happening, and doesn't understand why. also states she constantly reminds her to drink and to eat. Patient currently has never been diagnosed with dementia following a and is on no medications. Speech cognitive eval showed severe neurocognitive disorders probable dementia. Will do neurology consult for medical management. will need to be present for consult if possible so she can understand what's happening. Patient had recent knee surgery and is struggling with his recovery, generalized debility, weight loss, eating, pressure sores. Supportive care to and patient today. We'll follow needs. PT evaluation and treat done. Patient has had recent left total knee arthroplasty, and rehabilitation. Remains weak and needs mobility and strengthening. Discussed plan of care with Dr. Balderrama, patient seen on her behalf Discussed with the patient and his (Precious Marquez) Assessment/Plan 81yr old male seen and examined today. Agree with above A/P: was discussed with Precious. Patient with forgetfulness: need evaluation for dementia. Neurology consulted. Will follow. (Dave Balderrama MD) Precious Marquez Dec 12, 2016 12:10 Dave Balderrama MD Dec 12, 2016 15:09
[2016-12-12] MEDS ORDERED: VANCOMYCIN 1,000 MG/NS 250 ML IV ONE ×2 (15:00)
--- NOTE | 2016-12-12 16:29 | EKG ---
Date Performed: 12/11/2016 Time Performed: 19:42:50 PTAGE: 81 years EKG: Within normal limits. Since previous tracing 12/09/2016, no significant change. Borderline EC G PREVIOUS TRACING : 12/09/2016 18.19 DOCTOR: Valerio Nguyen Interpretating Date/Time 12/12/2016 16:28:09
--- NOTE | 2016-12-12 17:42 | MB ---
cc: JEWELS LUNA M.D. DATE OF CONSULTATION 12/12/16 He is an 81-year-old seen in neurological consultation in regards to some cognitive evaluation. The patient had left knee replacement apparently on November 16. He went to rehab and is back to the house because of some heel sores. He is recuperating somewhat poorly. There has been some confusion. The apparently has observed this difficulty with cognition as well. The neurological exam showed the patient to be awake, pleasant, cooperative, partially oriented. He knows his age, knows place and he was disoriented to the date. He is a bit anxious and has some difficulty providing recent information, although overall background information was provided. He was cooperative, following all commands. Ocular movements and visual sullivan full. He appears somewhat frail but he has fairly good strength throughout. Reflexes are diminished but present at the elbows and knees with some difficulty obtaining reflex because of his left knee surgery, ankle reflexes are absent. Plantar response is flexor. Pupils were equal and reactive. No facial weakness. Speech is normal. MEDICATIONS Current medications 1. Vitamins. 2. Diovan. 3. HCTZ 4. Tramadol as needed. 5. Zofran. ASSESSMENT An 81-year-old status post left knee replacement with some suggestion of cognitive decline. Suspect this to be chronic. Unfortunately, his had left the hospital and apparently coming back to the hospital. I am not certain about this because this is already late afternoon, but will have to review additional history with the . I spoke to the nursing staff. Instead of CT brain I will see if we can do an MRI brain without contrast on him. We will check an EEG, B12 and thyroid levels. I looked at his lab work and he does have elevated creatinine to 1.89, BUN also moderately elevated, 43 on 12/10 and yesterday was 29. Sodium, potassium normal. I will follow the neurological course and shall discuss with the for additional information. As outpatient, we will plan on doing some cognitive studies as well. Thank you for asking us to assist in his care. MD JOHNIE Silver/ /4:43 PM /5:22 PM
[2016-12-12 23:19] LABS: THYROXINE (T4) 7.2 MCG/DL (4.5-12.1)
[2016-12-13] VITALS (8 sets, daily range): BP systolic 112–130; BP diastolic 58–74; PULSE 58–106; RESP 18; TEMP 97.6–98.4; O2SAT 95–97
[2016-12-13] MEDS: PIPERACIL-TAZO 2.25 GM PREMIX 50 ML IV SCH ×4 (04:32→20:24)
[2016-12-13] MEDS: VALSARTAN 160 MG TAB PO SCH (08:17)
[2016-12-13] MEDS: COLLAGENASE OINT 30 GM TUBE TOP SCH (08:17)
[2016-12-13] MEDS: LACTOBACILLUS ACIDOPHILUS TAB PO SCH ×2 (08:17→20:24)
[2016-12-13] MEDS: HYDROCHLOROTHIAZIDE 12.5 MG CAP PO SCH (08:17)
[2016-12-13] MEDS: HEPARIN SODIUM - SQ 10,000 UNITS/ML VIAL SQ SCH ×2 (08:17→20:24)
[2016-12-13] MEDS: CHOLECALCIFEROL (VIT D3) 1000 UNIT TAB PO SCH (08:17)
[2016-12-13] MEDS: SODIUM CHLORIDE 0.9% FLUSH 5 ML FLUSH FLUSH SCH ×2 (08:18→20:23)
[2016-12-13] MEDS: MULTIVITAMINS/MINERALS THERAPEUTIC TAB PO SCH (08:22)
--- NOTE | 2016-12-13 10:37 | HHI.PR ---
Subjective Subjective Remarks resting in bed, always lying flat on back. Alert, but quiet spoken Forgetful, not shifting body weight in bed Forgets to drink water/fluids Generalized back pain in room (Precious Marquez) Review of Systems Constitutional Constitutional: Fatigue (generalized), Weakness Constitutional Remarks 10 point ROS done positives noted fatigue weakness forgetfulness bilateral heel pressure sores, systems negative or unremarkable (Precious Marquez) Musculoskeletal MS: Weakness, Stiffness (recent left knee replacement), Discomfort/Pain ( Precious Marquez) Integumentary Skin: Wounds (bilateral heels) (Precious Marquez) Neurologic Neurologic Remarks Forgetful to shift weight in bed, moves extremities to prevent pressure sores, forgets to drink fluids (Precious Marquez) Psychiatric Psychiatric Remarks Flat affect, but does answer simple questions (Precious Marquez) Vitals/Results Intake & Output 12/12/16 12/12/16 12/13/16 15:00 23:00 07:00 Intake Total 840 ml Output Total 600 ml 200 ml 400 ml Balance 240 ml -200 ml -400 ml Intake Oral 840 ml Output Urine Total 600 ml 200 ml 400 ml # Bowel Movements 1 Vital Signs Vital Signs Date Time Temp Pulse Resp B/P Pulse Ox O2 Delivery O2 Flow Rate FiO2 12/13/16 08:30 98.3 105 18 130/65 95 12/13/16 04:00 98.0 100 18 117/61 95 12/13/16 00:00 98.1 98 18 117/61 95 12/12/16 20:00 98.0 107 18 115/57 94 12/12/16 19:16 92 12/12/16 16:00 98.6 104 18 126/61 95 12/12/16 12:00 98.4 104 18 121/60 95 (Precious Marquez) CBC/BMP: 12/11/16 0643 12/13/16 0711 Lab Results Laboratory Tests Test 12/12/16 12/13/16 21:42 07:11 Vitamin B12 Level 1186 PG/ML Thyroxine (T4) 7.2 MCG/DL Thyroid Stimulating Hormone 1.730 uIU/ML 3rd Gen Creatinine 1.97 MG/DL Estimat Glomerular Filtration 33 ML/MIN Rate Random Vancomycin Level 19.5 COMMENT (Precious Marquez M. RADIOLOGY SPECIALIST) Physical Exam General General Appearance: Well Developed, Pale (BathValeria roaan M. RADIOLOGY SPECIALIST) Eyes Eye Exam: Pupils Equal, Pupils Reactive (BathValeria roaan M. RADIOLOGY SPECIALIST) Ears & Nose Ears & Nose Exam: Nasal Mucosa [place] (Valeria Marquezan M. RADIOLOGY SPECIALIST) Throat Throat Exam: Oral Mucosa [place] & Moist (AlmaPrecious roa M. RADIOLOGY SPECIALIST) Neck Neck Exam: Neck Supple, Trachea Midline (Bath,Precious M. RADIOLOGY SPECIALIST) Pulmonary Resp Exam: Clear Bilaterally, Rhonchi (few, clears with cough) (AlmaValeria roaan M. RADIOLOGY SPECIALIST) Cardiology CV Exam: Regular (Alma,Precious M. RADIOLOGY SPECIALIST) Gastrointestinal/Abdomen GI Exam: Soft, Non-Tender, Bowel Sounds Present (Bath,Precious M. RADIOLOGY SPECIALIST) Genitourinary Exam: Clear Urine (Precious Marquez M. RADIOLOGY SPECIALIST) Musculoskeletal MS Exam: Joints Intact MS Remarks Recent right knee replacement incision line clean dry and intact (Valeria Marquezan M. RADIOLOGY SPECIALIST) Integumentary Skin Remarks Bilateral heel pressure sores, floated (Valeria Marquezan M. RADIOLOGY SPECIALIST) Neurologic Neuro Exam: Alert, Awake, Speech Clear (quiet flat affect) Neuro Remarks Forgetful (Valeria Marquezan M. RADIOLOGY SPECIALIST) Assessment/Plan Assessment/Plan ASSESSMENT AND PLAN 1. pressure ulcers bilateral heels, unstageable 2. Lactic acid sepsis, possibly secondary to soft tissue infection. 3. Acute kidney injury. 4. Hypertension. 5. Osteoarthritis. 6. Dehydration. 7. Recent left knee replacement 8. Possible Dementia PLAN vital signs and labs reviewed. dehydration and acute kidney injury improving. We'll monitor labs, continue gentle hydration Renal diet., Eating small amounts with assistance from . Appetite is improving Bowel regimen with stool softeners and laxative Hypertension, stable medical management Osteoarthritis, medical management physical therapy evaled for treatment DVT prophylaxis with heparin subcu. We will consult Wound Care for their expert opinion Appreciate extruder operator multiple consult. Plan a care initiated with Santyl and wound care team. Heels floated bilateral, dressings changed daily, improvement noted with viable pink tissue. Appreciate neurology consult. was not here during examination, but is supposed to meet with neurologist today. Looking at further testing with MRI, probable dementia Will follow any needs PT evaluation and treat done. Patient has had recent left total knee arthroplasty, and rehabilitation. Remains weak and needs mobility and strengthening. PT has recommended specialty boots We will have case management evaluate equipment and further needs before discharge. has questions and would like to speak to case management tomorrow. Will consult for a.m. Supportive care to patient and . Spent approximately 20-30 minutes discussing plan of care, supporting and answering questions. Will check labs in the morning (Precious Marquez) Assessment/Plan 81yr old male seen and examined today. Above A/P was discussed with Precious. Lying in bed. in NAD. Seen and evaluated by neurology. Appreciate input. Work-up for dementia in progress. Appreciate podiatry/wound care input. Wound care per podiatry/wound care team. Monitor vitals/labs. Will follow. (Dave Balderrama MD) Precious Marquez Dec 13, 2016 10:37 Dave Balderrama MD Dec 13, 2016 13:58
[2016-12-13] MEDS: SODIUM CHLOR 0.45% 1000 ML INJ 1,000 ML IV SCH (12:47)
--- NOTE | 2016-12-13 12:56 | HHI.PR ---
Review/Management Daily Summary 12/14 spoke with pt and at bedside he leandro I saw him las week she understands mri brain with no contrast or sedation therefore no risk of encephalopathy etc apparently he had some confusion after ?sedation for ct scan in recent past will follow, dx likely mild dementia, now worse due to ongoing medical problems/ hospitalization Subjective Subjective Comments No acute events reported No headache No chest pain No dyspnea Active Medications Current Medications Medications (Trade) Dose Ordered Sig/Celeste Route Start Time Stop Time Status Last Admin (NS Flush) 2 ml UNSCH PRN FLUSH 12/09/16 22:15 (NS Flush) 2 ml BID FLUSH 12/10/16 09:00 12/13/16 08:18 (Tylenol) 650 mg Q4H PRN PO 12/09/16 22:15 (Zofran Inj) 4 mg Q6H PRN IVP 12/09/16 22:15 (Senokot) 17.2 mg Q12H PRN PO 12/09/16 22:15 (Heparin Inj) 5,000 units Q12H SQ 12/09/16 23:00 12/13/16 08:17 (Tylenol) 650 mg Q6H PRN PO 12/09/16 22:15 Naloxone HCl 0.4 mg 0.4 mg UNSCH PRN IV 12/09/16 22:15 Pharmacy Profile Note 0 ml @ 0 mls/hr UNSCH OTHER 12/09/16 22:15 Pharmacy Profile Note 0 ml @ 0 mls/hr UNSCH OTHER 12/09/16 22:15 (Zosyn 2.25 Gm Premix) 50 ml @ 100 mls/hr Q6H IV 12/10/16 03:00 12/13/16 08:17 (Theragran M Tab) 1 tab DAILY PO 12/11/16 09:00 12/13/16 08:22 (Vitamin D3) 2,000 units DAILY PO 12/11/16 09:00 12/13/16 08:17 (Lactinex) 1 tab BID PO 12/10/16 21:00 12/13/16 08:17 Tramadol HCl 50 mg 50 mg Q4H PRN PO 12/10/16 11:45 (1/2 NS 1000 ml Inj) 1,000 ml @ 42 mls/hr [id number] IV 12/10/16 11:45 12/13/16 12:47 (Diovan) 160 mg DAILY PO 12/11/16 09:00 12/13/16 08:17 (Microzide) 12.5 mg DAILY PO 12/11/16 09:00 12/13/16 08:17 Collagenase 1 applic 1 applic DAILY TOP 12/11/16 09:00 12/13/16 08:17 (Vancomycin Inj/ NS 250 ml Inj) 250 ml @ 250 mls/hr ONCE ONCE IV 12/13/16 15:00 12/13/16 15:59 Miscellaneous Information SPECIFIC LAB TO BE GOLDIE... ONCE ONCE XX 12/14/16 14:45 12/14/16 14:46 Allergies Allergies Coded Allergies No Known Allergies (Unverified12/09/16) Exam I&O / VS 12/12/16 12/12/16 12/13/16 15:00 23:00 07:00 Intake Total 840 ml Output Total 600 ml 200 ml 400 ml Balance 240 ml -200 ml -400 ml Intake Oral 840 ml Output Urine Total 600 ml 200 ml 400 ml # Bowel Movements 1 Vital Signs Date Time Temp Pulse Resp B/P Pulse Ox O2 Delivery O2 Flow Rate FiO2 12/13/16 08:30 98.3 105 18 130/65 95 12/13/16 04:00 98.0 100 18 117/61 95 12/13/16 00:00 98.1 98 18 117/61 95 12/12/16 20:00 98.0 107 18 115/57 94 12/12/16 19:16 92 12/12/16 16:00 98.6 104 18 126/61 95 Objective Micro and Labs Laboratory Tests Test 12/12/16 12/13/16 21:42 07:11 Vitamin B12 Level 1186 Thyroxine (T4) 7.2 Thyroid Stimulating Hormone 1.730 3rd Gen Creatinine 1.97 Estimat Glomerular Filtration 33 Rate Random Vancomycin Level 19.5 Date/Time Procedure Status Source Growth 12/09/16 18:30 Gram Stain - Final Complete Wound Heel 12/09/16 18:30 Wound Culture - Final Complete Staphylococcus Aureus Klebsiella Oxytoca Enterobacter Cloacae 12/09/16 18:30 Aerobic Blood Culture - Preliminary Resulted Blood Peripheral NO GROWTH IN 4 DAYS 12/09/16 18:30 Anaerobic Blood Culture - Preliminary Resulted Blood Peripheral NO GROWTH IN 4 DAYS Levy Dooley MD Dec 13, 2016 12:56
[2016-12-13] MEDS ORDERED: VANCOMYCIN 1,000 MG/NS 250 ML IV ONE ×2 (15:00)
--- NOTE | 2016-12-13 18:28 | RADRPT ---
EXAM DATE/TIME: 12/13/2016 17:52 [facility] COMPARISON: No previous studies available for comparison. INDICATIONS : Confusion. Dementia. MEDICAL HISTORY : Arthritis. Hypertension. Renal insufficiency, chronic. SURGICAL HISTORY : Total knee replacement, left. Gangrene feet. ENCOUNTER: Initial ACUITY: 2 day PAIN SCORE: 0/10 LOCATION: cranial TECHNIQUE: Multiplanar, multisequence MRI of the brain was performed without contrast. FINDINGS: CEREBRUM: The ventricles are normal for age. No evidence of midline shift, mass lesion, hemorrhage or acute in farction. No extraaxial fluid collections are seen. The pituitary gland and suprasellar cistern are normal in configuration. WHITE MATTER: No significant signal abnormalities are seen in the white matter. POSTERIOR FOSSA: The cerebellum and brainstem are intact. The 4th ventricle is midline. The cerebellopontine angle is unremarkable. The cerebellar tonsils are normal in position. DIFFUSION IMAGING: No focal areas of restricted diffusion are seen. No evidence of acute infarction. EXTRACRANIAL: The visualized portions of the orbits and paranasal sinuses are unremarkable. CONCLUSION: Negative noncontrast MRI of the brain. Darion Gómez MD on December 13, 2016 at 18:26 Board Certified Radiologist. This report was verified electronically.
[2016-12-14] VITALS: BP 110/61; PULSE 106; RESP 18; TEMP 98.1; O2SAT 95
[2016-12-14 04:00] VITALS: BP 104/59; PULSE 102; RESP 18; TEMP 98.2; O2SAT 94
[2016-12-14] MEDS: PIPERACIL-TAZO 2.25 GM PREMIX 50 ML IV SCH ×2 (04:52→08:20)
[2016-12-14 07:25] LABS: MEAN CELL VOLUME 93.7 FL (80.0-100.0); MEAN CORPUSCULAR HEMOGLOBIN 31.9 PG (27.0-34.0); MEAN CORPUSCULAR HGB CONC 34.1 % (32.0-36.0); PLATELET COUNT 257 TH/MM3 (150-450); RED BLOOD COUNT 3.63 MIL/MM3 (4.50-5.90); RED CELL DISTRIBUTION WIDTH 14.5 % (11.6-17.2); REVIEW FLAG FINAL; WHITE BLOOD COUNT 8.4 TH/MM3 (4.0-11.0)
[2016-12-14 07:49] LABS: BICARBONATE 26.5 MEQ/L (21.0-32.0); POTASSIUM 3.9 MEQ/L (3.5-5.1)
[2016-12-14 08:00] VITALS: BP 127/63; PULSE 86; PULSE 97; RESP 18; TEMP 97.9; O2SAT 98
[2016-12-14] MEDS: VALSARTAN 160 MG TAB PO SCH (08:19)
[2016-12-14] MEDS: LACTOBACILLUS ACIDOPHILUS TAB PO SCH ×2 (08:19→21:14)
[2016-12-14] MEDS: CHOLECALCIFEROL (VIT D3) 1000 UNIT TAB PO SCH (08:19)
[2016-12-14] MEDS: HYDROCHLOROTHIAZIDE 12.5 MG CAP PO SCH (08:19)
[2016-12-14] MEDS: MULTIVITAMINS/MINERALS THERAPEUTIC TAB PO SCH (08:19)
[2016-12-14] MEDS: HEPARIN SODIUM - SQ 10,000 UNITS/ML VIAL SQ SCH ×2 (08:20→21:14)
[2016-12-14] MEDS: SODIUM CHLORIDE 0.9% FLUSH 5 ML FLUSH FLUSH SCH ×2 (08:20→21:00)
[2016-12-14] MEDS: COLLAGENASE OINT 30 GM TUBE TOP SCH (08:20)
--- NOTE | 2016-12-14 09:18 | MG ---
cc: JEWELS DOOLEY M.D. Lab No: Date: 12/13/2016 Age: 81 Sex: M Race: REQUESTING PHYSICIAN MD Soumya REASON FOR PROCEDURE EEG was obtained on this 81-year-old patient being evaluated for confusion, cognitive decline. FINDINGS The patient is described as awake and asleep. There is some 8-10 per second activity in the central and posterior head regions. There are low-amplitude beta rhythms frontally. Mild amount of theta and some relatively rare delta activity is present during drowsiness. The background is reactive. Photic stimulation was unremarkable. As the patient drowses, there are theta and delta rhythms intermittently bilaterally. INTERPRETATION Mildly abnormal EEG because of mild background slowing suggestive of a mild diffuse disturbance of cerebral function. No epileptiform features are present. Jewels Dooley MD OFC/SSB /7:57 AM /8:15 AM
--- NOTE | 2016-12-14 10:32 | HHI.PR ---
Subjective Subjective Remarks resting in bed, always lying flat on back. , Even after prompted I don't see him moving around in bed Alert, but quiet spoken Forgets to drink water/fluids, says he's trying to do better Generalized back pain in room (Precious Marquez) Review of Systems Constitutional Constitutional: Fatigue (generalized), Weakness Constitutional Remarks 10 point ROS done positives noted fatigue weakness forgetfulness bilateral heel pressure sores improving, mild tachycardia, some decreased fluid intake although improving. Systems negative or unremarkable (Precious Marquez) Musculoskeletal MS: Weakness, Stiffness (recent left knee replacement), Discomfort/Pain ( Precious Marquez) Integumentary Skin: Wounds (bilateral heels) (Precious Marquez) Neurologic Neurologic Remarks Forgetful to shift weight in bed, moves extremities to prevent pressure sores, forgets to drink fluids (Precious Marquez) Psychiatric Psychiatric Remarks Flat affect, but does answer simple questions (Precious Marquez) Vitals/Results Intake & Output 12/13/16 12/13/16 12/14/16 15:00 23:00 07:00 Intake Total 437 ml 480 ml Balance 437 ml 480 ml Intake Oral 480 ml IV Total 437 ml Vital Signs Vital Signs Date Time Temp Pulse Resp B/P Pulse Ox O2 Delivery O2 Flow Rate FiO2 12/14/16 08:00 86 12/14/16 08:00 97.9 97 18 127/63 98 12/14/16 04:00 98.2 102 18 104/59 94 12/14/16 00:00 98.1 106 18 110/61 95 12/13/16 20:00 98.2 105 18 112/58 95 12/13/16 19:58 106 12/13/16 16:30 98.4 58 18 119/74 97 12/13/16 12:30 97.6 101 18 117/60 97 (Precious Marquez) CBC/BMP: 12/14/16 0646 12/14/16 0646 Lab Results Laboratory Tests Test 12/14/16 06:46 White Blood Count 8.4 TH/MM3 Red Blood Count 3.63 MIL/MM3 Hemoglobin 11.6 GM/DL Hematocrit 34.0 % Mean Corpuscular Volume 93.7 FL Mean Corpuscular Hemoglobin 31.9 PG Mean Corpuscular Hemoglobin 34.1 % Concent Red Cell Distribution Width 14.5 % Platelet Count 257 TH/MM3 Mean Platelet Volume 7.7 FL Sodium Level 139 MEQ/L Potassium Level 3.9 MEQ/L Chloride Level 101 MEQ/L Carbon Dioxide Level 26.5 MEQ/L Anion Gap 12 MEQ/L Blood Urea Nitrogen 15 MG/DL Creatinine 2.01 MG/DL Estimat Glomerular Filtration 32 ML/MIN Rate Random Glucose 78 MG/DL Calcium Level 9.0 MG/DL Imaging Remarks Last Impressions Renal Ultrasound 12/10/16 0000 Signed Impressions: Service Date/Time: Friday, December 09, 2016 23:23 - CONCLUSION: 1. 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 2. Except for a 1.3 cm cyst in the lower pole, left kidney is sonographically normal. Efe Adame MD Chest X-Ray 12/09/16 1817 Signed Impressions: Service Date/Time: Friday, December 09, 2016 18:47 - CONCLUSION: No acute disease. Kingsley Dupree MD Foot X-Ray 12/09/16 0000 Signed Impressions: Service Date/Time: Friday, December 09, 2016 18:44 - CONCLUSION: Unremarkable calcaneus. Kingsley Dupree MD Current Medications Active Medications Miscellaneous Information SPECIFIC LAB TO BE GOLDIE... ONCE ONCE XX; Start at 14:45; Stop 12/14/16 at 14:46 Vancomycin HCl/ Sodium Chloride (Vancomycin Inj/ NS 250 ml Inj) 250 ml @ 250 mls/hr ONCE ONCE IV Last administered on 12/13/16t 14:31; Admin Dose 250 MLS/HR ; Start 12/13/16 at 15:00; Stop 12/13/16 at 15:59; Status DC (Precious Marquez) Physical Exam General General Appearance: Well Developed, No Acute Distress, Comfortable, Pale ( Precious Marquez) Eyes Eye Exam: Pupils Equal, Pupils Reactive (Precious Marquez) Ears & Nose Ears & Nose Exam: Nasal Mucosa [place] (Precious Marquez) Throat Throat Exam: Oral Mucosa [place] & Moist (Precious MarquezP) Neck Neck Exam: Neck Supple, Trachea Midline (Precious Marquez PEER TUTOR) Pulmonary Resp Exam: Clear Bilaterally, Rhonchi (few, clears with cough) (Precious Marquez PEER TUTOR) Cardiology CV Exam: Regular (Precious MarquezP) Gastrointestinal/Abdomen GI Exam: Soft, Non-Tender, Bowel Sounds Present (Precious MarquezP) Genitourinary Exam: Clear Urine (Precious MarquezP) Musculoskeletal MS Exam: Joints Intact MS Remarks Recent right knee replacement incision line clean dry and intact (Precious MarquezP) Integumentary Skin Remarks Bilateral heel pressure sores, floated, improving with santyl and dressing changes (Precious MarquezP) Neurologic Neuro Exam: Alert, Awake, Speech Clear (quiet flat affect) Neuro Remarks Forgetful (Precious Marquez) Assessment/Plan Assessment/Plan 1. pressure ulcers bilateral heels, unstageable Now improving with Santyl resting changes. Right is worse than left, pink skin, nonbleeding 2. Lactic acid sepsis, possibly secondary to soft tissue infection. Resolved WBC count normal. 3. Acute kidney injury. B UN now normal creatinine still has mild elevation. Encouraged by mouth fluids as well as nutritional supplements, increase caloric intake. 4. Hypertension. Patient on Diovan, but heart rate is 100-110. Will start low-dose beta irma, and evaluate whether patient needs Diovan or not. 5. Osteoarthritis. Generalized low back pain and aches, stable. Status post recent left knee surgery. Will need home PT, for mobilization and safety 6. Dehydration. Resolved BUN, normal range. Tinea to encourage by mouth fluids 7. Recent left knee replacement Continue physical therapy 8. Possible Dementia Being seen per neurology. Appreciate input. Will need possible medical management and follow-up as an outpatient. 9. Tachycardia Discussed options with low-dose beta irma. Will start low-dose metoprolol and monitor blood pressure and heart rate. vital signs and labs reviewed. Discharge planning in process. Patient will need home health for when care, physical therapy, and home health. (Precious Marquez) Assessment/Plan pt is seen & examined d/w PT , he prefers to go home w HHC & refusing SNF at this time . cont Inpatient PT today & tomorrow , possible d/c home w HHC d/c IV zosyn , start po keflex & doxy d/w Precious cont surrent tx ss for d/c planning will f/u (Timo Dalton MD) Precious Marquez Dec 14, 2016 10:32 Timo Dalton MD Dec 14, 2016 12:12
[2016-12-14] MEDS ORDERED: PILL SPLITTER OTHER PRN (10:45)
--- NOTE | 2016-12-14 10:48 | HHI.FF ---
Face to Face Verification Diagnosis: (1) Pressure ulcer of both heels, stage 2 (2) Acute kidney injury (3) Hypertension (4) Debility (5) Osteoarthritis of left knee (6) Dementia Physical Therapy Order: Evaluate and Treat, Improve ambulation, Strength and gait training Occupational Therapy Order: Evaluate and Treat, Improve ADL, Gross motor coordination Speech Therapy Order: To Improve: Cognitive skills Home Health Nursing Order: Wound care and dressing changes Nursing assessment with vital signs I have seen patient Simone HernandezDANNIELLE on 12/14/16. My clinical findings support the need for the requested home health care services because: Deconditioned w/ increased weakness Impaired cognition/judgement High risk of falls I certify that my clinical findings support that this patient is homebound because: Impaired cognitive ability/safety Unsteady gait/balance Precious Marquez Dec 14, 2016 10:48
[2016-12-14] MEDS: METOPROLOL TARTRATE 25 MG TAB PO SCH ×2 (10:52→21:14)
[2016-12-14] MEDS: SODIUM CHLOR 0.45% 1000 ML INJ 1,000 ML IV SCH (10:55)
--- NOTE | 2016-12-14 11:05 | HHI.PR ---
Review/Management Daily Summary 12/14 spoke with pt and at bedside he leandro I saw him las week she understands mri brain with no contrast or sedation therefore no risk of encephalopathy etc apparently he had some confusion after ?sedation for ct scan in recent past will follow, dx likely mild dementia, now worse due to ongoing medical problems/ hospitalization 12/14 doing well, per usually functions better in am mri brain benign eeg unremarkable probably mild cognitive impairment will call office for outpt f/u upon discharge consider namenda or alike in the outpt setting Subjective Subjective Comments No acute events reported No headache No chest pain No dyspnea Active Medications Current Medications Medications (Trade) Dose Ordered Sig/Celeste Route Start Time Stop Time Status Last Admin (NS Flush) 2 ml UNSCH PRN FLUSH 12/09/16 22:15 (NS Flush) 2 ml BID FLUSH 12/10/16 09:00 12/14/16 08:20 (Tylenol) 650 mg Q4H PRN PO 12/09/16 22:15 (Zofran Inj) 4 mg Q6H PRN IVP 12/09/16 22:15 (Senokot) 17.2 mg Q12H PRN PO 12/09/16 22:15 (Heparin Inj) 5,000 units Q12H SQ 12/09/16 23:00 12/14/16 08:20 (Tylenol) 650 mg Q6H PRN PO 12/09/16 22:15 Naloxone HCl 0.4 mg 0.4 mg UNSCH PRN IV 12/09/16 22:15 Pharmacy Profile Note 0 ml @ 0 mls/hr UNSCH OTHER 12/09/16 22:15 Pharmacy Profile Note 0 ml @ 0 mls/hr UNSCH OTHER 12/09/16 22:15 (Zosyn 2.25 Gm Premix) 50 ml @ 100 mls/hr Q6H IV 12/10/16 03:00 12/14/16 08:20 (Theragran M Tab) 1 tab DAILY PO 12/11/16 09:00 12/14/16 08:19 (Vitamin D3) 2,000 units DAILY PO 12/11/16 09:00 12/14/16 08:19 (Lactinex) 1 tab BID PO 12/10/16 21:00 12/14/16 08:19 Tramadol HCl 50 mg 50 mg Q4H PRN PO 12/10/16 11:45 (1/2 NS 1000 ml Inj) 1,000 ml @ 42 mls/hr [id number] IV 12/10/16 11:45 12/14/16 10:55 (Diovan) 160 mg DAILY PO 12/11/16 09:00 12/14/16 08:19 (Microzide) 12.5 mg DAILY PO 12/11/16 09:00 12/14/16 08:19 (Santyl Oint) 1 applic DAILY TOP 12/11/16 09:00 12/14/16 08:20 Miscellaneous Information SPECIFIC LAB TO BE GOLDIE... ONCE ONCE XX 12/14/16 14:45 12/14/16 14:46 (Lopressor) 12.5 mg Q12HR PO 12/14/16 10:45 12/14/16 10:52 (Pill Splitter) 1 ea UNSCH PRN OTHER 12/14/16 10:45 Allergies Allergies Coded Allergies No Known Allergies (Unverified12/09/16) Exam I&O / VS 12/13/16 12/13/16 12/14/16 15:00 23:00 07:00 Intake Total 437 ml 480 ml Balance 437 ml 480 ml Intake Oral 480 ml IV Total 437 ml Vital Signs Date Time Temp Pulse Resp B/P Pulse Ox O2 Delivery O2 Flow Rate FiO2 12/14/16 08:00 86 12/14/16 08:00 97.9 97 18 127/63 98 12/14/16 04:00 98.2 102 18 104/59 94 12/14/16 00:00 98.1 106 18 110/61 95 12/13/16 20:00 98.2 105 18 112/58 95 12/13/16 19:58 106 12/13/16 16:30 98.4 58 18 119/74 97 12/13/16 12:30 97.6 101 18 117/60 97 Objective Micro and Labs Laboratory Tests Test 12/14/16 06:46 White Blood Count 8.4 Red Blood Count 3.63 Hemoglobin 11.6 Hematocrit 34.0 Mean Corpuscular Volume 93.7 Mean Corpuscular Hemoglobin 31.9 Mean Corpuscular Hemoglobin 34.1 Concent Red Cell Distribution Width 14.5 Platelet Count 257 Mean Platelet Volume 7.7 Sodium Level 139 Potassium Level 3.9 Chloride Level 101 Carbon Dioxide Level 26.5 Anion Gap 12 Blood Urea Nitrogen 15 Creatinine 2.01 Estimat Glomerular Filtration 32 Rate Random Glucose 78 Calcium Level 9.0 Date/Time Procedure Status Source Growth 12/09/16 18:30 Gram Stain - Final Complete Wound Heel 12/09/16 18:30 Wound Culture - Final Complete Staphylococcus Aureus Klebsiella Oxytoca Enterobacter Cloacae 12/09/16 18:30 Aerobic Blood Culture - Preliminary Resulted Blood Peripheral NO GROWTH IN 4 DAYS 12/09/16 18:30 Anaerobic Blood Culture - Preliminary Resulted Blood Peripheral NO GROWTH IN 4 DAYS Levy Dooley MD Dec 14, 2016 11:05
[2016-12-14 12:00] VITALS: BP 119/57; PULSE 105; RESP 18; TEMP 98.7; O2SAT 95
[2016-12-14 13:54] LABS: RAPID PLASMA REAGIN SCREEN NON-REACTIVE (NON-REACTVE)
[2016-12-14] MEDS ORDERED: PHARMACY ORDERED LAB XX ONE (14:45)
[2016-12-14 16:00] VITALS: BP 111/60; PULSE 101; RESP 18; TEMP 98.1; O2SAT 95
[2016-12-14 20:00] VITALS: BP 105/56; PULSE 106; RESP 18; TEMP 97.7; O2SAT 93
[2016-12-14] MEDS: DOXYCYCLINE HYCLATE 100 MG CAP PO SCH (21:14)
[2016-12-14] MEDS: CEPHALEXIN MONOHYDRATE 500 MG CAP PO SCH (21:14)
[2016-12-15] VITALS: BP 105/58; PULSE 97; RESP 18; TEMP 97.8; O2SAT 93
[2016-12-15 03:11] VITALS: PULSE 104
[2016-12-15 04:00] VITALS: BP 115/56; PULSE 96; RESP 18; TEMP 97.5; O2SAT 92
[2016-12-15 08:00] VITALS: BP 110/57; PULSE 95; RESP 18; TEMP 98.2; O2SAT 96
[2016-12-15] MEDS: VALSARTAN 160 MG TAB PO SCH (08:59)
[2016-12-15] MEDS: CHOLECALCIFEROL (VIT D3) 1000 UNIT TAB PO SCH (08:59)
[2016-12-15] MEDS: COLLAGENASE OINT 30 GM TUBE TOP SCH (08:59)
[2016-12-15] MEDS: MULTIVITAMINS/MINERALS THERAPEUTIC TAB PO SCH (08:59)
[2016-12-15] MEDS: DOXYCYCLINE HYCLATE 100 MG CAP PO SCH (08:59)
[2016-12-15] MEDS: LACTOBACILLUS ACIDOPHILUS TAB PO SCH (08:59)
[2016-12-15] MEDS: HEPARIN SODIUM - SQ 10,000 UNITS/ML VIAL SQ SCH (08:59)
[2016-12-15] MEDS: METOPROLOL TARTRATE 25 MG TAB PO SCH (08:59)
[2016-12-15] MEDS: SODIUM CHLOR 0.45% 1000 ML INJ 1,000 ML IV SCH (08:59)
[2016-12-15] MEDS: CEPHALEXIN MONOHYDRATE 500 MG CAP PO SCH (08:59)
[2016-12-15] MEDS: SODIUM CHLORIDE 0.9% FLUSH 5 ML FLUSH FLUSH SCH (09:00)
[2016-12-15 12:00] VITALS: BP 115/61; PULSE 97; RESP 18; TEMP 98; O2SAT 95
--- NOTE | 2016-12-15 12:48 | HHI.PR ---
Subjective History of Present Illness feels well/ eager to go home pain is in control No N/V No fever or chills appetite is improving less weak No abd pain NO diarrhea Offers no other c/o Review of Systems Constitutional Constitutional: Fatigue (generalized), Weakness Musculoskeletal MS: Weakness, Stiffness (recent left knee replacement), Discomfort/Pain Integumentary Skin: Wounds (bilateral heels) Vitals/Results Intake & Output 12/14/16 12/14/16 12/15/16 15:00 23:00 07:00 Intake Total 720 ml 120 ml 120 ml Output Total 600 ml 400 ml 700 ml Balance 120 ml -280 ml -580 ml Intake Oral 720 ml 120 ml 120 ml Output Urine Total 600 ml 400 ml 700 ml # Bowel Movements 2 0 0 Vital Signs Vital Signs Date Time Temp Pulse Resp B/P Pulse Ox O2 Delivery O2 Flow Rate FiO2 12/15/16 08:00 98.2 95 18 110/57 96 12/15/16 04:00 97.5 96 18 115/56 92 12/15/16 03:11 104 12/15/16 00:00 97.8 97 18 105/58 93 12/14/16 20:00 97.7 106 18 105/56 93 12/14/16 16:00 98.1 101 18 111/60 95 CBC/BMP: 12/14/16 0646 12/15/16 0735 Lab Results Laboratory Tests Test 12/15/16 07:35 Creatinine 1.87 MG/DL Estimat Glomerular Filtration 35 ML/MIN Rate Physical Exam General General Appearance: Well Developed, No Acute Distress, Comfortable, Pale Eyes Eye Exam: Pupils Equal, Pupils Reactive, Sclera White Ears & Nose Ears & Nose Exam: Nasal Mucosa [place] Throat Throat Exam: Oral Mucosa [place] & Moist Neck Neck Exam: Neck Supple, Trachea Midline Pulmonary Resp Exam: Clear Bilaterally, Breath Sounds Equal Cardiology CV Exam: Regular, Normal Sinus Rhythm Gastrointestinal/Abdomen GI Exam: Soft, Non-Tender, Bowel Sounds Present Musculoskeletal MS Remarks b/l heel pressure ulcers , dry / black eschar , L >> R no drainage Extremeties Extremities Exam: No Edema, Pedal Pulses Palpable Neurologic Neuro Exam: Alert, Awake, Oriented, Speech Clear (quiet flat affect), Moving All Extremities Assessment/Plan Assessment/Plan 1. pressure ulcers bilateral heels, unstageable Now improving with Santyl resting changes. Right is worse than left, pink skin, nonbleeding 2. Lactic acid sepsis, possibly secondary to soft tissue infection. Resolved WBC count normal. 3. Acute kidney injury. B UN now normal creatinine still has mild elevation. Encouraged by mouth fluids as well as nutritional supplements, increase caloric intake. 4. Hypertension. Patient on Diovan, but heart rate is 100-110. Will start low-dose beta irma, and evaluate whether patient needs Diovan or not. 5. Osteoarthritis. Generalized low back pain and aches, stable. Status post recent left knee surgery. Will need home PT, for mobilization and safety 6. Dehydration. Resolved BUN, normal range. Tinea to encourage by mouth fluids 7. Recent left knee replacement Continue physical therapy 8. Possible Dementia Being seen per neurology. Appreciate input. Will need possible medical management and follow-up as an outpatient. 9. Tachycardia resolved Discussed options with low-dose beta irma. Will start low-dose metoprolol and monitor blood pressure and heart rate. pt ambulated in the Room w RW independently w SBA medically stable for d./c d.c home w [facility]HC & po keflex & doxy x 7 days d/w PT & his at bedside in detail /answered all of their questions pt already have DME , walker/ Bedside commode / CPM machine f/u pcp f/u Ortho see MRS see Orders Timo Dalton MD Dec 15, 2016 12:48
[2016-12-15] MEDS ORDERED: METO25TA3 PO (13:25)
[2016-12-15] MEDS ORDERED: DIOV80TA4 PO (13:25)
[2016-12-15] MEDS ORDERED: DOXY100C PO (13:25)
[2016-12-15] MEDS ORDERED: CEPH500C PO (13:25)
[2016-12-15] MEDS ORDERED: ULTR50TA5 PO (13:25)
[2016-12-15] MEDS ORDERED: METOPROLOL TARTRATE 25 MG TAB PO SCH (21:00)
[2016-12-16] MEDS ORDERED: VALSARTAN 80 MG TAB PO SCH (09:00)
--- NOTE | 2017-01-29 18:58 | HHI.DS ---
Discharge Summary Admission Date Dec 09, 2016 at 20:29 Discharge Date: Dec 15, 2016 Admitting Diagnosis severe sepsis, pressure ulcer, acute kidney injury (1) Sepsis (2) Status post total left knee replacement (3) Hypertension (4) Acute kidney injury Imaging Last Impressions Brain MRI 12/13/16 0000 Signed Impressions: Service Date/Time: Tuesday, December 13, 2016 17:52 - CONCLUSION: Negative noncontrast MRI of the brain. Darion Gómez MD Renal Ultrasound 12/10/16 0000 Signed Impressions: Service Date/Time: Friday, December 09, 2016 23:23 - CONCLUSION: 1. 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 2. Except for a 1.3 cm cyst in the lower pole, left kidney is sonographically normal. Efe Adame MD Chest X-Ray 12/09/167 Signed Impressions: Service Date/Time: Friday, December 09, 2016 18:47 - CONCLUSION: No acute disease. Kingsley Dupree MD Foot X-Ray 12/09/16 0000 Signed Impressions: Service Date/Time: Friday, December 09, 2016 18:44 - CONCLUSION: Unremarkable calcaneus. Kingsley Dpuree MD Hospital Course This is a pleasant 81-year-old white male who had been in his usual state of health up until mid-November. He went into the hospital and had a left total knee replacement and went to [facility] for his post-care for strengthening. The patient received rehab during that period of time but still struggled with some decreased appetite which included decreased p.o. intake. He did still complain of some generalized weakness and according to the record had a 10-pound weight loss while he was there. The patient was released from [facility] to home but still was struggling with some of the same symptoms of generalized weakness and decreased appetite. The and patient noted that he had pressure sores on his heels bilateral which became open and oozing. The patient was seen per his PCP on 12/09/2016, his recommendation was to follow up in the hospital for followup and evaluation in the hospital setting. The patient was alert, resting in the bed, answered simple questions appropriately. He was a fair historian and since there was no one with him some of this information was being gathered from the record. The patient's PCP is Dr. Valenzuela and his orthopedist is Dr. Orozco. Denied any chest pain. No shortness of breath and no headache. The patient also denies any fever or cough. The patient was positive for some decreased appetite and some mild nausea. Patient evaluated in the emergency room On 12/09/2016 - WBC 12.1, RBC 3.79, hemoglobin 12.2, hematocrit 36.1, platelet count 321, neutrophil auto count 79.2, monocyte auto count 8.6. PT/INR 1. Chemistry - Sodium 141, potassium 4.5, chloride 102, carbon dioxide 27, amnion gap 12, BUN 51, creatinine 3.08. Random glucose 113, lactic acid 2.2. Drawn again 4 hours later 0.9, total bilirubin 1.5, alkaline phosphatase 135, C-reactive protein 14.3, albumin 2.7. Urine is yellow, clear, pH is 5, specific gravity 1.012; negative for glucose, protein, ketones, occult blood, nitrites bilirubin and leukocyte esterase. Culture is not indicated. IMAGING STUDIES Renal ultrasound, congenital absence of the right kidney. A 1.3 cm cyst in the lower pole. Left kidney is normal. CHEST X-RAY No acute disease. FOOT X-RAY Unremarkable calcaneus. Admitted for: 1. Pressure ulcers bilateral heels, Stage II. 2. Lactic acid sepsis, possibly secondary to soft tissue infection. 3. Acute kidney injury. 4. Hypertension. 5. Osteoarthritis. 6. Dehydration. During the course of the hospitalization, the following took place: Patient was admitted, started on empiric antibiotics. Cultures were followed Medications from home were reconcile Patient was put on appropriate DVT and GI prophylaxis Renal function was followed closely, patient was put on IV fluids. Wound care was consulted. Pressure ulcers were evaluated, they were unstageable. Santyl dressing changes were recommended. Vascular surgery consultation was obtained. Vascular surgery did not find any evidence of vascular disease. Wounds were result of pressure areas the patient received as a result of poor care at facility. Podiatry also evaluated patient , she agreed with this assessment. Recommended to offload and float heels. Dressing changes were ordered. Recommended to continue antibiotic. No surgical intervention was recommended. Acute kidney injury improved, patient was put on IV fluids and encouraged to increase by mouth intake. Pressure was noted elevated, patient was continued on Diovan. Heart rate was noted elevated, low-dose beta irma was started. Because of patient's Was evaluated for changes in mental status, seen by neurology. Brain MRI stable. Remained stable Physical therapy was consulted for mobility Case management was consulted for discharge planning and to arrange home health Patient was put on po keflex & doxy x 7 days pt already have DME , walker/ Bedside commode / CPM machine Started to: f/u pcp f/u Ortho Pt Condition on Discharge: Stable Discharge Disposition: Disch w/ Home Health Serv Discharge Instructions DIET: Follow Instructions for: Heart Healthy Diet Speech Therapy-Diet Recommends: Regular Fluid Restrictions: none Activities you can perform: Weight Bearing as Noe Other Activity Instructions: fall precautions / keep both heels off bed Follow up Referrals: Orthopedics - 2 Weeks PCP Follow-up - 1 Week SNF/RIC/ with interim c New Medications: Metoprolol Tartrate (Metoprolol Tartrate) 25 Mg Tab 25 MG PO Q12HR htn #60 TAB Continued Medications: Cholecalciferol (Vitamin D-3) 2,000 Unit Tab 2000 UNITS PO DAILY Coenzyme Q10 (Ubidecarenone) (Co Q-10) Unknown Strength Cap 1-2 CAP PO DAILY Multiple Minerals W/ Vitamins (Bone Density Builder) 1 Tab Tab 1 TAB PO DAILY [place]-3 Fatty Acids (Fish Oil) 1,000 Mg Cap 1000 MG PO DAILY Probiotic Product (Probiotic) 1 Tab Tab 1 TAB PO BID Discontinued Medications: Tramadol (Ultram) 50 Mg Tab 100 MG PO Q4H PRN BREAKTHROUGH PAIN #60 TAB Valsartan-Hydrochlorothiazide (Valsartan-Hydrochlorothiazide) 160-12.5 Mg Tab 1 TAB PO DAILY Blood Pressure Management #30 Ref 0 TAB Blanche Cooper Jan 29, 2017 18:58
== END 2016-12-15 16:45 | disposition home health service (06) | DRG 872 ==
LOC: NEPC 17:51 → NEDA 20:29 → NEDH 12-10 00:29 → N04B 12-10 13:21
PROVIDERS: ADMIT Specialist; ATTEND Specialist
DX: A41.9 Sepsis, unspecified organism (principal); N17.9 Acute kidney failure, unspecified; L89.622 Pressure ulcer of left heel, stage 2; L89.612 Pressure ulcer of right heel, stage 2; J44.9 Chronic obstructive pulmonary disease, unspecified; R63.0 Anorexia; L03.116 Cellulitis of left lower limb; F03.90 Unspecified dementia, unspecified severity, without behavioral disturbance, psychotic disturbance, mood disturbance, and anxiety; E86.0 Dehydration; M19.90 Unspecified osteoarthritis, unspecified site; R00.0 Tachycardia, unspecified; R11.0 Nausea; M54.5 Low back pain; M54.2 Cervicalgia; M51.36 Other intervertebral disc degeneration, lumbar region; I10 Essential (primary) hypertension; Z96.652 Presence of left artificial knee joint; Z87.891 Personal history of nicotine dependence; Z85.828 Personal history of other malignant neoplasm of skin
CPT/HCPCS: 70551; 71010; 73650; 76775; 76937; 80048; 80053; 80202; 81001; 82565; 82607; 83540; 83550; 83605; 83735; 84100; 84436; 84443; 85025; 85027; 85610; 85652; 85730; 86140; 86403; 86592; 87040; 87070; 87077; 87147; 87186; 87205; 93005; 95819; 96361; 96374; J1644; J2405; J2543; J3370; J7030; J7050

== ENCOUNTER 2017-01-07 19:15 | Inpatient (IN) | payer MEDICARE ==
[~2017-01-07] VITALS: Ht 177.8 cm; Wt 74.0 kg
[2017-01-07] MEDS: HEPARIN SODIUM - SQ 10,000 UNITS/ML VIAL SQ SCH (00:55)
[~2017-01-07 19:15] MED LIST changes: +CEPH500C PO; +CO Q30CA PO; -CPMMACHINE; +DIOV80TA4 PO; +DOXY100C PO; +FISH1000 PO; +METO25TA3 PO; -MISC-163; +MULT-7 PO; +PIPERACIL-TAZO 3.375 GM PREMIX 50 ML IV SCH; +PROB1TAB PO; -VALS160T4 PO; -WALKER WHEELS/F1 MIS
[2017-01-07 19:18] VITALS: BP 110/52; PULSE 130; RESP 16; TEMP 98.4; O2SAT 96
--- NOTE | 2017-01-07 19:59 | PD ---
HPI Chief Complaint: Fever Time Seen by Provider: 19:57 Travel History International Travel<30 days: No Contact w/Intl Traveler<30days: No Traveled to known affect area: No History of Present Illness HPI 81-year-old male presents to the emergency department for evaluation of fever. He states that he started running fever yesterday. His states that just prior to coming the emergency department, his fever was 102.6, heart rate 119, BP 134/60. He has not had anything for his fever. She caught his primary care physician, Dr. Valenzuela, who recommended he come to the emergency department. Patient was recently admitted earlier in December for sepsis. He has bilateral heel ulcers that he got at rehabilitation after getting a knee replacement. Patient's states he also had gout to the right MTP joint. She states that this was drained and he is on allopurinol. He also has a history of hypertension. His only medications are allopurinol and a blood pressure medication. He denies any chest pressure is breath. No nausea, vomiting, diarrhea. No coughing or congestion. No abdominal pain. Patient does state that the wound to the right foot looks worse to him than it did previously when he fell it. He apparently gets wound care every morning at his house by a nurse. 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) Cardiovascular Problems: No Chemotherapy: No Diabetes: No Diminished Hearing: No Endocrine: No Genitourinary: No Hepatitis: No Hiatal Hernia: No Hypertension: Yes Immune Disorder: No Medical other: Yes (Gout) Musculoskeletal: Yes (arthritis,back pain L3 and neck pain) Neurologic: No Psychiatric: No Reproductive: No Respiratory: No Migraines: No Seizures: No Thyroid Disease: No Tetanus Vaccination: > 5 Years Influenza Vaccination: No Past Surgical History Abdominal Surgery: Yes (appy) AICD: No Appendectomy: Yes Eye Surgery: Yes (cataract surgery) Joint Replacement: Yes (left knee) Oral Surgery: Yes (lesion on vocal cord removed) Pacemaker: No Tonsillectomy: Yes Social History Alcohol Use: No Tobacco Use: No Substance Use: No Allergies-Medications (Allergen,Severity, Reaction): Coded Allergies: No Known Allergies (Unverified , 01/07/17) Reported Meds & Prescriptions Reported Meds & Active Scripts Active Metoprolol Tartrate 25 Mg Tab 25 Mg PO Q12HR Reported Allopurinol 300 Mg Tab 300 Mg PO DAILY Co Q-10 (Coenzyme Q10 (Ubidecarenone)) Unknown Strength Cap 1-2 Cap PO DAILY Fish Oil ([place]-3 Fatty Acids) 1,000 Mg Cap 1,000 Mg PO DAILY Bone Density Builder (Multiple Minerals W/ Vitamins) 1 Tab Tab 1 Tab PO DAILY Probiotic (Probiotic Product) 1 Tab Tab 1 Tab PO BID Vitamin D-3 (Cholecalciferol) 2,000 Unit Tab 2,000 Units PO DAILY Review of Systems Except as stated in HPI: all other systems reviewed are Neg Physical Exam Narrative GENERAL: Well-nourished, well-developed elderly male patient, ambulatory. Afebrile SKIN: Focused skin assessment warm/dry. Patient has healing pressure ulcer to the bilateral ears. He does have a wound to the right MTP joint. There is surrounding erythema and swelling. Packing is noted in place. Wound culture is taken. HEAD: Normocephalic. Atraumatic. EYES: No scleral icterus. No injection or drainage. NECK: Supple, trachea midline. No JVD or lymphadenopathy. CARDIOVASCULAR: Regular rhythm without murmurs, gallops, or rubs. Patient is tachycardic with heart rate in the 130s. RESPIRATORY: Breath sounds equal bilaterally. No accessory muscle use. Lung sounds are clear to auscultation. GASTROINTESTINAL: Abdomen soft, non-tender, nondistended. No abdominal pain to palpation. MUSCULOSKELETAL: No cyanosis, or edema. BACK: Nontender without obvious deformity. No CVA tenderness. Data Data Last Documented VS Vital Signs Date Time Temp Pulse Resp B/P Pulse Ox O2 Delivery O2 Flow Rate FiO2 01/07/17 20:07 95 Room Air 01/07/17 20:01 103.1 123 18 124/60 Orders Electrocardiogram (01/07/17 19:53) Complete Blood Count With Diff (01/07/17 19:53) Comprehensive Metabolic Panel (01/07/17 19:53) Prothrombin Time / Inr (Pt) (01/07/17 19:53) Act Partial Throm Time (Ptt) (01/07/17 19:53) Lactic Acid Sepsis Protocol (01/07/17 19:53) Magnesium (Mg) (01/07/17 19:53) Urinalysis - C+S If Indicated (01/07/17 19:53) Influenzae A/B Antigen (01/07/17 19:53) Blood Culture (01/07/17 19:53) Wound Culture And Gram Stain (01/07/17 19:53) Chest, Single Ap (01/07/17 19:53) Blood Glucose (01/07/17 19:53) Ecg Monitoring (01/07/17 19:53) Iv Access Insert/Monitor (01/07/17 19:53) Oximetry (01/07/17 19:53) Oxygen Administration (01/07/17 19:53) Foot, Complete ([id number]) (01/07/17 ) Vancomycin Inj (Vancomycin Inj) (01/07/17 20:00) Piperacil-Tazo 4.5 Gm Premix (Zosyn 4.5 (01/07/17 20:00) Sodium Chlor 0.9% 1000 Ml Inj (Ns 1000 M (01/07/17 20:00) Acetaminophen (Tylenol) (01/07/17 20:15) Westergren Sedimentation Rate (01/07/17 20:24) C-Reactive Protein (Crp) (01/07/17 20:24) MDM Medical Decision Making Medical Screen Exam Complete: Yes Emergency Medical Condition: Yes Medical Record Reviewed: Yes Differential Diagnosis Sepsis versus pneumonia versus UTI versus electrolyte abnormality versus influenza Narrative Course 81-year-old male presents to the emergency department for evaluation of fever since yesterday. On exam, he does state the wound to the right foot does look worse than it had. Fever is 103.1 rectally. EKG, CBC, CMP, PTT, PTT/INR, lactic acid, sed rate, CRP, magnesium, UA, and influenza, blood cultures 2, wound culture, x-ray of the right foot, chest x-ray are ordered and pending. Patient is given normal saline 1 L IV bolus, vancomycin 1 g IV, Zosyn 4.5 g IV, Tylenol 650 mg by mouth. EKG shows sinus tachycardia, heart rate 121. Dr. Reaves will follow patient and admit once laboratory findings and imaging results are back. Sepsis Criteria SIRS Criteria (2 or more): Temp > 100.9 or < 96.8, Heart rate over 90 Sepsis Criteria (SIRS+source): Infect source susp/known Yana Blancas Jan 07, 2017 19:59
[2017-01-07] MEDS ORDERED: VANCOMYCIN INJ 1,000 MG in SODIUM CHLOR 0.9% 250 ML INJ 250 ML IV ONE (20:00)
[2017-01-07] MEDS ORDERED: PIPERACIL-TAZO 4.5 GM PREMIX 100 ML IV ONE (20:00)
[2017-01-07] MEDS ORDERED: ALLO300T2 PO (20:00)
[2017-01-07] MEDS ORDERED: SODIUM CHLOR 0.9% 1000 ML INJ 1,000 ML IV ONE ×2 (20:00→20:45)
[2017-01-07 20:01] VITALS: BP 124/60; PULSE 123; RESP 18; TEMP 103.1; O2SAT 93; O2SAT 95
[2017-01-07] MEDS ORDERED: ACETAMINOPHEN 325 MG TAB PO ONE (20:15)
--- NOTE | 2017-01-07 20:47 | RADRPT ---
EXAM DATE/TIME: 01/07/2017 20:07 [facility] COMPARISON: No previous studies available for comparison. INDICATIONS : Right foot pain, laceration on medial foot by 1st metatarsal. MEDICAL HISTORY : Hypertension. SURGICAL HISTORY : None. ENCOUNTER: Initial ACUITY: 1 day PAIN SCORE: 0/10 LOCATION: Right foot FINDINGS: There is soft tissue swelling with gas bubbles in this area at the level of the first metatarsophalan geal joint with lucencies of the adjacent distal metatarsal bone may represent osteomyelitis. CONCLUSION: Soft tissue swelling and lucencies of the first distal metatarsal bone and possibility of osteomyelit is is not excluded. Lucas Russ MD on January 07, 2017 at 20:45 Board Certified Radiologist. This report was verified electronically.
--- NOTE | 2017-01-07 20:48 | RADRPT ---
EXAM DATE/TIME: 01/07/2017 20:04 [facility] COMPARISON: CHEST SINGLE AP, December 09, 2016, 18:47. INDICATIONS : Shortness of breath. MEDICAL HISTORY : Hypertension. SURGICAL HISTORY : None. ENCOUNTER: Initial ACUITY: 1 day PAIN SCORE: 0/10 LOCATION: Bilateral chest FINDINGS: The lungs are clear without infiltrate, nodule, or mass. There is no appreciable pleural effusion fo r technique. Heart and mediastinum are unremarkable. CONCLUSION: No acute cardiopulmonary disease. Lucas Russ MD on January 07, 2017 at 20:46 Board Certified Radiologist. This report was verified electronically.
[2017-01-07 20:57] LABS: AUTOMATED NEUTROPHIL # 11.8 TH/MM3 (1.8-7.7); BASOPHIL # 0.1 TH/MM3 (0-0.2); BASOPHIL % 0.4 % (0.0-2.0); EOSINOPHIL % 0.1 % (0.0-4.0); HEMATOCRIT 34.6 % (39.0-51.0); HEMO FLAGS DIFF FINAL; LYMPH % 6.4 % (9.0-44.0); LYMPHOCYTE # 0.9 TH/MM3 (1.0-4.8); MEAN CELL VOLUME 92.5 FL (80.0-100.0); MEAN CORPUSCULAR HEMOGLOBIN 31.2 PG (27.0-34.0); MEAN CORPUSCULAR HGB CONC 33.8 % (32.0-36.0); MONO % 7.6 % (0.0-8.0); NEUT % 85.5 % (16.0-70.0); PLATELET COUNT 264 TH/MM3 (150-450); RED BLOOD COUNT 3.74 MIL/MM3 (4.50-5.90); RED CELL DISTRIBUTION WIDTH 15.5 % (11.6-17.2); WHITE BLOOD COUNT 13.8 TH/MM3 (4.0-11.0)
[2017-01-07 21:08] LABS: ANION GAP 7 MEQ/L (5-15); AST (GOT) 15 U/L (15-37); BICARBONATE 29.8 MEQ/L (21.0-32.0); BLOOD UREA NITROGEN 23 MG/DL (7-18); CHLORIDE 101 MEQ/L (98-107); GLOMERULAR FILTRATION RATE 33 ML/MIN (>89); MAGNESIUM 1.8 MG/DL (1.5-2.5); POTASSIUM 4.3 MEQ/L (3.5-5.1); SODIUM (NA) 138 MEQ/L (136-145)
[2017-01-07 21:15] LABS: ALKALINE PHOSPHATASE 82 U/L (45-117); ALT (GPT) 14 U/L (12-78); APTT (PATIENT) 38.3 SEC (24.3-30.1); PROTHROMBIN TIME - PATIENT 11.6 SEC (9.8-11.6); TOTAL BILIRUBIN ADULT 0.9 MG/DL (0.2-1.0)
[2017-01-07 21:38] VITALS: BP 105/51; PULSE 107; RESP 18; TEMP 99.5; O2SAT 96
--- NOTE | 2017-01-07 21:54 | PD ---
Data Data Last Documented VS Vital Signs Date Time Temp Pulse Resp B/P Pulse Ox O2 Delivery O2 Flow Rate FiO2 01/07/17 21:38 99.5 107 18 105/51 96 Room Air Orders Electrocardiogram (01/07/17 19:53) Complete Blood Count With Diff (01/07/17 19:53) Comprehensive Metabolic Panel (01/07/17 19:53) Prothrombin Time / Inr (Pt) (01/07/17 19:53) Act Partial Throm Time (Ptt) (01/07/17 19:53) Lactic Acid Sepsis Protocol (01/07/17 19:53) Magnesium (Mg) (01/07/17 19:53) Urinalysis - C+S If Indicated (01/07/17 19:53) Influenzae A/B Antigen (01/07/17 19:53) Blood Culture (01/07/17 19:53) Wound Culture And Gram Stain (01/07/17 19:53) Chest, Single Ap (01/07/17 19:53) Blood Glucose (01/07/17 19:53) Ecg Monitoring (01/07/17 19:53) Iv Access Insert/Monitor (01/07/17 19:53) Oximetry (01/07/17 19:53) Oxygen Administration (01/07/17 19:53) Foot, Complete ([id number]) (01/07/17 ) Vancomycin Inj (Vancomycin Inj) (01/07/17 20:00) Piperacil-Tazo 4.5 Gm Premix (Zosyn 4.5 (01/07/17 20:00) Sodium Chlor 0.9% 1000 Ml Inj (Ns 1000 M (01/07/17 20:00) Acetaminophen (Tylenol) (01/07/17 20:15) Westergren Sedimentation Rate (01/07/17 20:24) Sodium Chlor 0.9% 1000 Ml Inj (Ns 1000 M (01/07/17 20:45) C-Reactive Protein (Crp) (01/07/17 20:05) Labs Laboratory Tests Test 01/07/17 20:05 White Blood Count 13.8 TH/MM3 Red Blood Count 3.74 MIL/MM3 Hemoglobin 11.7 GM/DL Hematocrit 34.6 % Mean Corpuscular Volume 92.5 FL Mean Corpuscular Hemoglobin 31.2 PG Mean Corpuscular Hemoglobin 33.8 % Concent Red Cell Distribution Width 15.5 % Platelet Count 264 TH/MM3 Mean Platelet Volume 7.9 FL Neutrophils (%) (Auto) 85.5 % Lymphocytes (%) (Auto) 6.4 % Monocytes (%) (Auto) 7.6 % Eosinophils (%) (Auto) 0.1 % Basophils (%) (Auto) 0.4 % Neutrophils # (Auto) 11.8 TH/MM3 Lymphocytes # (Auto) 0.9 TH/MM3 Monocytes # (Auto) 1.0 TH/MM3 Eosinophils # (Auto) 0.0 TH/MM3 Basophils # (Auto) 0.1 TH/MM3 CBC Comment DIFF FINAL Differential Comment Prothrombin Time 11.6 SEC Prothromb Time International 1.0 RATIO Ratio Activated Partial 38.3 SEC Thromboplast Time Sodium Level 138 MEQ/L Potassium Level 4.3 MEQ/L Chloride Level 101 MEQ/L Carbon Dioxide Level 29.8 MEQ/L Anion Gap 7 MEQ/L Blood Urea Nitrogen 23 MG/DL Creatinine 1.93 MG/DL Estimat Glomerular Filtration 33 ML/MIN Rate Random Glucose 114 MG/DL Lactic Acid Level 1.7 mmol/L Calcium Level 9.8 MG/DL Magnesium Level 1.8 MG/DL Total Bilirubin 0.9 MG/DL Aspartate Amino Transf 15 U/L (AST/SGOT) Alanine Aminotransferase 14 U/L (ALT/SGPT) Alkaline Phosphatase 82 U/L C-Reactive Protein 22.00 MG/DL Total Protein 6.6 GM/DL Albumin 3.1 GM/DL MDM Supervised Visit with [facility]: Yes Narrative Course I, Dr. Reaves, have reviewed the advance practice practitioner's documentation and am in agreement, met with the patient face to face, made the diagnosis, and the medical decision making was done by me. See her note for further details. Briefly this is an 81-year-old male who is here for evaluation of fever, tachycardia, generalized weakness, bilateral foot ulcerations/redness. Initial heart rate was 103. Initial temp is 103F. Blood pressure of 110/52. CBC shows WBC 13.8 with 85% neutrophils. CMP is markable for BUN 23, creatinine 1.93, GFR 33. Lactic acid is 1.3. CRP is 22. Right foot x-ray shows soft tissue inflammation and possible osteomyelitis of the first distal metatarsal. The patient has an ulceration in this area. Bilateral feet are warm with brisk pulses bilaterally. The patient and the patient's significant other were made aware of all findings. He was given 2 L of normal saline IV and IV vancomycin and IV Zosyn. He'll be admitted for further treatment and evaluation of sepsis , bilateral foot cellulitis/ulcerations. Case discussed with [facility] hospitalist ELISA Rodriguez. The patient will be admitted to their service under Dr Skinner Diagnosis Primary Impression: Sepsis Qualified Code: A41.9 - Sepsis, due to unspecified organism Additional Impression: Foot infection Admitting Information Admitting Physician Requests: Admit Govind Reaves MD Jan 07, 2017 21:53
[2017-01-07 22:00] VITALS: BP 104/51; PULSE 102; RESP 14; O2SAT 96
[2017-01-07 23:02] VITALS: BP 105/52; PULSE 96; RESP 15; O2SAT 96
[2017-01-07] MEDS ORDERED: ONDANSETRON HCL 4 MG/2 ML VIAL IVP PRN (23:30)
[2017-01-07] MEDS ORDERED: Vancomycin Consult Pharmacy 1 EA OTHER SCH (23:30)
[2017-01-07] MEDS ORDERED: SENNOSIDES 8.6 MG TAB PO PRN (23:30)
[2017-01-07] MEDS ORDERED: NALOXONE HCL 0.4 MG/ML AMP IV PRN (23:30)
[2017-01-07] MEDS ORDERED: ACETAMINOPHEN 325 MG TAB PO PRN (23:30)
[2017-01-07] MEDS ORDERED: SODIUM CHLORIDE 0.9% FLUSH 10 ML FLUSH IV FLUSH PRN (23:30)
[2017-01-08] VITALS (8 sets, daily range): BP systolic 111–132; BP diastolic 56–95; PULSE 101–118; RESP 18–23; TEMP 98.1–100.9; O2SAT 93–96
[2017-01-08] MEDS ORDERED: VANCOMYCIN INJ 750 MG in SODIUM CHLOR 0.9% 250 ML INJ 250 ML IV ONE ×2
[2017-01-08 01:08] LABS: BLOOD, URINE NEG (NEG); GLUCOSE,URINE NEG (NEG); KETONE, URINE NEG (NEG); MUCUS URINE FEW /lpf (OCC); NITRITE,URINE NEG (NEG); PH, URINE 5.5 (5.0-8.5); URINE COLOR YELLOW (YELLW/STRAW)
[2017-01-08 01:09] LABS: COMMENT (UR) CATH-CULT NOT IND; CULTURE IF INDICATED CATH CULTURE NOT IND
[2017-01-08] MEDS: SODIUM CHLOR 0.9% 1000 ML INJ 1,000 ML IV SCH ×3 (02:26→20:00)
[2017-01-08] MEDS: PIPERACIL-TAZO 3.375 GM PREMIX 50 ML IV SCH ×3 (05:00→21:04)
[2017-01-08 06:59] LABS: AUTOMATED NEUTROPHIL # 7.4 TH/MM3 (1.8-7.7); BASOPHIL % 0.3 % (0.0-2.0); EOSINOPHIL # 0.3 TH/MM3 (0-0.4); EOSINOPHIL % 2.9 % (0.0-4.0); HEMATOCRIT 28.3 % (39.0-51.0); HEMO FLAGS DIFF FINAL; LYMPH % 6.1 % (9.0-44.0); LYMPHOCYTE # 0.5 TH/MM3 (1.0-4.8); MEAN CELL VOLUME 91.9 FL (80.0-100.0); MEAN CORPUSCULAR HGB CONC 34.8 % (32.0-36.0); MONO % 6.7 % (0.0-8.0); PLATELET COUNT 205 TH/MM3 (150-450); RED BLOOD COUNT 3.07 MIL/MM3 (4.50-5.90); RED CELL DISTRIBUTION WIDTH 15.8 % (11.6-17.2); WHITE BLOOD COUNT 8.8 TH/MM3 (4.0-11.0)
[2017-01-08 07:26] LABS: BICARBONATE 25.3 MEQ/L (21.0-32.0); POTASSIUM 3.9 MEQ/L (3.5-5.1)
[2017-01-08] MEDS: ALLOPURINOL 300 MG TAB PO SCH (08:45)
[2017-01-08] MEDS: METOPROLOL TARTRATE 25 MG TAB PO SCH ×2 (08:45→21:03)
[2017-01-08] MEDS: CHOLECALCIFEROL (VIT D3) 1000 UNIT TAB PO SCH (08:46)
[2017-01-08] MEDS: HEPARIN SODIUM - SQ 10,000 UNITS/ML VIAL SQ SCH ×2 (08:47→21:03)
[2017-01-08] MEDS: SODIUM CHLORIDE 0.9% FLUSH 10 ML FLUSH IV FLUSH SCH ×2 (08:49→21:00)
--- NOTE | 2017-01-08 12:35 | HHI.HP ---
HPI Service [facility] Primary Care Physician Non-Staff Admission Diagnosis sepsis, right foot cellulitis/ulceration Diagnoses: Chief Complaint: fever, right foot infection Travel History International Travel<30 Days: No Contact w/Intl Traveler <30 Da: No Traveled to Known Affected Are: No History of Present Illness This is an 81-year-old elderly male who presented to the emergency room for evaluation of fever. Patient has a past medical history of osteoarthritis, had a left knee replacement 11/16/2016. Patient was discharged to a rehabilitation facility and after his stay there he went home and noted that he had pressure areas that became ulcerated and infected. He returned to the hospital December 09 for sepsis and infection of both heels. At that time he was treated with IV antibiotics, was evaluated by vascular surgery and determined that the cause of the ulcerations was not due to vascular issues but more from constant pressure while he was at the rehabilitation facility. He was eventually discharged home with home health care. According to the patient, he has been following up with Dr. John and has been receiving wound care at home. Indicates that his heel ulcers are actually healing. Most recently he developed gout to the right MTP joint. He went to see Dr. John who noted an ulcerated area and did some debridement approximately a week ago. He was started on allopurinol. Yesterday , he started running a fever up to 1-2.6 with heart rate of 119 and blood pressure 134/60. His decided to bring him to the hospital for evaluation. Patient indicates that the right foot is tender in that the wound appears worse than before. In the emergency room, patient was evaluated was noted with temperature 103.1, heart rate 1:30, blood pressure 110/52 and sats 96% on room air. Laboratory workup was significant for WBC of 13.8, hemoglobin 11.7 and hematocrit 34.6. Sedimentation rate was 56. Patient does have underlying renal insufficiency and on this admission his creatinine was increased to 1.93, BUN 23. Lactic acid was 1.7. C-reactive protein was 182. X-ray of the foot was completed that show soft tissue swelling and lucencies of the first distal metatarsal bone and possibility of osteomyelitis. Chest x-ray did not reveal any acute findings. Cultures were obtained, patient was started on empiric antibiotics. Initial blood cultures are showing gram-positive cocci. Wound culture is positive for staph aureus. Patient is admitted for further evaluation and treatment. Review of Systems Constitutional: COMPLAINS OF: Fever, DENIES: Diaphoretic episodes, Fatigue, Weight gain, Weight loss, Chills, Dizziness, Change in appetite, Night Sweats Endocrine: DENIES: Heat/cold intolerance, Polydipsia, Polyuria, Polyphagia Eyes: DENIES: Blurred vision, Diplopia, Eye inflammation, Eye pain, Vision loss , Photosensitivity, Double Vision Ears, nose, mouth, throat: DENIES: Tinnitus, Hearing loss, Vertigo, Nasal discharge, Oral lesions, Throat pain, Hoarseness, Ear Pain, Running Nose, Epistaxis, Sinus Pain, Toothache, Odynophagia Cardiovascular: DENIES: Chest pain, Palpitations, Syncope, Dyspnea on Exertion , PND, Lower Extremity Edema, Orthopnea, Claudication Gastrointestinal: DENIES: Abdominal pain, Black stools, Bloody stools, Constipation, Diarrhea, Nausea, Vomiting, Difficulty Swallowing, Anorexia Musculoskeletal: COMPLAINS OF: Joint pain, DENIES: Muscle aches, Stiffness, Joint Swelling, Back pain, Neck pain Integumentary: DENIES: Abnormal pigmentation, Nail changes, Pruritus, Rash Hematologic/lymphatic: DENIES: Bruising, Lymphadenopathy Immunologic/allergic: DENIES: Eczema, Urticaria Neurologic: DENIES: Abnormal gait, Headache, Localized weakness, Paresthesias, Seizures, Speech Problems, Tremor, Poor Balance Psychiatric: DENIES: Anxiety, Confusion, Mood changes, Depression, Hallucinations, Agitation, Suicidal Ideation, Homicidal Ideation, Delusions Past Family Social History Past Medical History Recently admitted December 2016 for sepsis, bilateral heel ulcers that were infected Skin cancer, removed from nose and under right eye Degenerative disc disease Arthritis Gout Past Surgical History Left total knee replacement for every 2016 Cataract surgery Lesion from vocal cord removal Appendectomy Reported Medications Reported Meds & Active Scripts Active Metoprolol Tartrate 25 Mg Tab 25 Mg PO Q12HR Reported Allopurinol 300 Mg Tab 300 Mg PO DAILY Co Q-10 (Coenzyme Q10 (Ubidecarenone)) Unknown Strength Cap 1-2 Cap PO DAILY Fish Oil ([place]-3 Fatty Acids) 1,000 Mg Cap 1,000 Mg PO DAILY Bone Density Builder (Multiple Minerals W/ Vitamins) 1 Tab Tab 1 Tab PO DAILY Probiotic (Probiotic Product) 1 Tab Tab 1 Tab PO BID Vitamin D-3 (Cholecalciferol) 2,000 Unit Tab 2,000 Units PO DAILY Allergies: Coded Allergies: No Known Allergies (Unverified , 01/07/17) Active Ordered Medications Inpatient Medications Acetaminophen (Tylenol) 650 mg Q4H PRN PO TEMP > 100.4; Start 01/07/17 at 23:30 Acetaminophen 650 mg 650 mg ONCE ONCE PO Last administered on 01/07/17 20:40; Start 01/07/17 at 20:15; Stop 01/07/17 at 20:16; Status DC Allopurinol (Zyloprim) 300 mg DAILY PO Last administered on 01/08/17 08:45; Start 01/08/17 at 09:00 Cholecalciferol 2000 units 2,000 units DAILY PO Last administered on 01/08/17 08:46; Start 01/08/17 at 09:00 Heparin Sodium (Porcine) (Heparin Inj) 5,000 units Q12H SQ Last administered on 01/08/17 08:47; Start 01/07/17 at 09:00 Metoprolol Tartrate (Lopressor) 25 mg Q12HR PO Last administered on 01/08/17 08 :45; Start 01/08/17 at 09:00 Miscellaneous Information SPECIFIC LAB TO BE GOLDIE... ONCE ONCE .XX ; Start 01/11 at 05:45; Stop 01/11/17 at 05:46 Naloxone HCl 0.4 mg 0.4 mg UNSCH PRN IV SEE LABEL COMMENTS; Start 01/07/17 at 23 :30 Ondansetron HCl (Zofran Inj) 4 mg Q6H PRN IVP NAUSEA OR VOMITING; Start at 23:30 Pharmacy Profile Note 0 ml @ 0 mls/hr UNSCH OTHER ; Start 01/07/17 at 23:30 Piperacillin Sod/ Tazobactam Sod (Zosyn 3.375 Gm Premix) 50 ml @ 100 mls/hr Q8H IV Last administered on 01/08/17 05:00; Start 01/08/17 at 05:00 Piperacillin Sod/ Tazobactam Sod (Zosyn 4.5 Gm Premix) 100 ml @ 200 mls/hr ONCE ONCE IV Last administered on 01/07/17 20:40; Start 01/07/17 at 20:00; Stop 01/07/17 at 20:29; Status DC Sennosides (Senokot) 17.2 mg Q12H PRN PO CONSTIPATION; Start 01/07/17 at 23:30 Sodium Chloride (NS 1000 ml Inj) 1,000 ml @ 100 mls/hr Q10H IV Last administered on 01/08/17 02:26; Start 01/08/17 at 00:00 Sodium Chloride (NS Flush) 2 ml BID IV FLUSH ; Start 01/08/17 at 09:00 Vancomycin HCl 750 mg/Sodium Chloride 257.5 ml @ 250 mls/hr NOW ONCE IV Last administered on 01/08/17 02:30; Start 01/08/17 at 00:00; Stop 01/08/17 at 01:01; Status DC Vancomycin HCl 1000 mg/Sodium Chloride 250 ml @ 250 mls/hr ONCE ONCE IV Last administered on 01/07/17 21:19; Start 01/07/17 at 20:00; Stop 01/07/17 at 20:59; Status DC Vancomycin HCl/ Sodium Chloride (Vancomycin Inj/ NS 250 ml Inj) 250 ml @ 250 mls/hr Q24H IV ; Start 01/09/17 at 06:00 Family History Reviewed, noncontributory Social History Patient is living at home with , no tobacco, no substance abuse, occasional alcohol. Smoked when he was very young. Physical Exam Vital Signs Vital Signs Date Time Temp Pulse Resp B/P Pulse Ox O2 Delivery O2 Flow Rate FiO2 01/08/17 12:04 100.9 102 22 121/63 95 01/08/17 08:00 100.5 118 21 132/58 93 01/08/17 05:34 99.9 104 18 111/56 93 01/08/17 01:30 98.1 101 20 121/56 95 01/08/17 01:01 96 01/07/17 23:02 96 15 105/52 96 Room Air 01/07/17 22:00 102 14 104/51 96 Room Air 01/07/17 21:38 99.5 107 18 105/51 96 Room Air 01/07/17 20:07 95 Room Air 01/07/17 20:01 103.1 123 18 124/60 95 Room Air 01/07/17 19:18 98.4 130 16 110/52 96 Room Air Physical Exam GENERAL: This is a well-nourished, well-developed patient, in no apparent distress. SKIN: No rashes, ecchymoses or lesions. Cool and dry. HEAD: Atraumatic. Normocephalic. No temporal or scalp tenderness. EYES: Pupils equal round and reactive. Extraocular motions intact. No scleral icterus. No injection or drainage. ENT: Nose without bleeding, purulent drainage or septal hematoma. Throat without erythema, tonsillar hypertrophy or exudate. Uvula midline. Airway patent. NECK: Trachea midline. No JVD or lymphadenopathy. Supple, nontender, no meningeal signs. CARDIOVASCULAR: Regular rate and rhythm without murmurs, gallops, or rubs. RESPIRATORY: Clear to auscultation. Breath sounds equal bilaterally. No wheezes , rales, or rhonchi. GASTROINTESTINAL: Abdomen soft, non-tender, nondistended. No hepato-splenomegaly , or palpable masses. No guarding. MUSCULOSKELETAL: Left knee with scar from previous surgery. Right olecranon bursitis, nontender, no erythema. Indicates this is chronic. Bilateral healing pressure ulcers noted to both heels. Has a wound to the right MTP joint , there is surrounding erythema, purulent drainage, there is some packing in place. Pedal pulses +1. Trace edema both feet, right greater than left. NEUROLOGICAL: Awake, alert oriented 3. No focal deficits. Laboratory Laboratory Tests Test 01/07/17 01/08/17 01/08/17 20:05 00:45 05:57 White Blood Count 13.8 8.8 Red Blood Count 3.74 3.07 Hemoglobin 11.7 9.8 Hematocrit 34.6 28.3 Mean Corpuscular Volume 92.5 91.9 Mean Corpuscular Hemoglobin 31.2 32.0 Mean Corpuscular Hemoglobin 33.8 34.8 Concent Red Cell Distribution Width 15.5 15.8 Platelet Count 264 205 Mean Platelet Volume 7.9 7.7 Neutrophils (%) (Auto) 85.5 84.0 Lymphocytes (%) (Auto) 6.4 6.1 Monocytes (%) (Auto) 7.6 6.7 Eosinophils (%) (Auto) 0.1 2.9 Basophils (%) (Auto) 0.4 0.3 Neutrophils # (Auto) 11.8 7.4 Lymphocytes # (Auto) 0.9 0.5 Monocytes # (Auto) 1.0 0.6 Eosinophils # (Auto) 0.0 0.3 Basophils # (Auto) 0.1 0.0 CBC Comment DIFF FINAL DIFF FINAL Differential Comment Erythrocyte Sedimentation Rate 56 Prothrombin Time 11.6 Prothromb Time International 1.0 Ratio Activated Partial 38.3 Thromboplast Time Sodium Level 138 143 Potassium Level 4.3 3.9 Chloride Level 101 110 Carbon Dioxide Level 29.8 25.3 Anion Gap 7 8 Blood Urea Nitrogen 23 19 Creatinine 1.93 1.55 Estimat Glomerular Filtration 33 43 Rate Random Glucose 114 87 Lactic Acid Level 1.7 Calcium Level 9.8 8.6 Magnesium Level 1.8 Total Bilirubin 0.9 Aspartate Amino Transf 15 (AST/SGOT) Alanine Aminotransferase 14 (ALT/SGPT) Alkaline Phosphatase 82 C-Reactive Protein 22.00 Total Protein 6.6 Albumin 3.1 Urine Color YELLOW Urine Turbidity CLEAR Urine pH 5.5 Urine Specific [place] 1.012 Urine Protein TRACE Urine Glucose (UA) NEG Urine Ketones NEG Urine Occult Blood NEG Urine Nitrite NEG Urine Bilirubin NEG Urine Urobilinogen LESS THAN 2.0 Urine Leukocyte Esterase NEG Urine RBC LESS THAN 1 Urine WBC 1 Urine Mucus FEW Microscopic Urinalysis Comment CATH-CULT NOT IND Date/Time Procedure Status Source Growth 01/07/17 20:10 Influenza Types A,B Antigen (ANANDA) - Final Complete Nasal Aspirate NEGATIVE FOR FLU A AND B ANTIGEN.... 01/07/17 20:10 Gram Stain - Final Resulted Wound Foot 01/07/17 20:10 Wound Culture - Preliminary Resulted Staphylococcus Aureus Staph Sp Coagulase Negative 01/07/17 20:10 Aerobic Blood Culture - Preliminary Resulted Blood Peripheral NO GROWTH IN 1 DAY 01/07/17 20:10 Anaerobic Blood Culture - Preliminary Resulted Blood Peripheral NO GROWTH IN 1 DAY Result Diagram: 01/08/17 0557 01/08/17 0557 Imaging Last Impressions Chest X-Ray 01/07/171952 Signed Impressions: Service Date/Time: January 20:04 - CONCLUSION: No acute cardiopulmonary disease. Lucas Russ MD Foot X-Ray 01/07/17 0000 Signed Impressions: Service Date/Time: January 20:07 - CONCLUSION: Soft tissue swelling and lucencies of the first distal metatarsal bone and possibility of osteomyelitis is not excluded. Lucas Russ MD Assessment and Plan Problem List: (1) Sepsis (2) Foot infection (3) Status post total left knee replacement (4) Pressure ulcer of both heels, stage 2 (5) Acute kidney injury (6) right MTP joint wound (7) Dementia Plan: Mild (8) Hypertension Assessment and Plan Admit to Dr. Skinner 81-year-old male status post left total knee replacement home went to rehabilitation and subsequently developed pressure ulcers to both heels. Most recently he developed gout to right MTP joint and had an ulcerated area that required debridement at wound care center. Patient presented to the emergency room with increased drainage, right foot tenderness, fever. Patient admitted with sepsis, right foot infection, possible osteomyelitis per x-ray findings. -Continue with empiric antibiotics Follow cultures Continue with IV fluids Consult podiatry for evaluation We will order an MRI of the right foot to rule out osteomyelitis Acute on chronic renal injury Continue with IV fluids Follow BMP Avoid nephrotoxic agents Osteoarthritis, status post left knee replacement. Patient states that he's been using mostly wheelchair and is somewhat debilitated due to recent complications with sepsis and pressure ulcers. Consult physical therapy for evaluation and treatment Bilateral heel ulcers, appeared to be healing -Consult wound care for evaluation Keep heels off bed Recent right MTP joint gout Continue with allopurinol Hypertension Continue with Lopressor 25 mg by mouth every 12 Heparin for DVT prophylaxis Repeat labs in the morning Home medications reviewed, initiated as indicated Physical therapy for evaluation and treatment Plan of care has been discussed with the patient, attending and registered nurse. Further management of the patient will be dependent on the hospital course This patient was seen by myself and Dr. Skinner, this H&P is written on her behalf Physician Certification 2 Midnight Certification Type: Admission for Inpatient Services Order for Inpatient Services The services are ordered in accordance with Medicare regulations or non- Medicare payer requirements, as applicable. In the case of services not specified as inpatient-only, they are appropriately provided as inpatient services in accordance with the 2-midnight benchmark. Estimated LOS (days): 2 2 days is the estimated time the patient will need to remain in the hospital, assuming treatment plan goals are met and no additional complications. Post-Hospital Plan: Home Health Problem Qualifiers (1) Sepsis: Qualified Code: A41.9 - Sepsis, due to unspecified organism (2) Dementia: (3) Hypertension: Qualified Code: I10 - Essential hypertension Blanche Cooper [facility] Jan 08, 2017 12:35
--- NOTE | 2017-01-08 13:37 | EKG ---
Date Performed: 01/07/2017 Time Performed: 19:58:54 PTAGE: 81 years EKG: SINUS TACHYCARDIA NONSPECIFIC ST & T-WAVE ABNORMALITY ABNORMAL RHYTHM ECG Compared to prior tracing no significant change PREVIOUS TRACING : 12/11/2016 19.42 DOCTOR: Renaldo Naranjo Interpretating Date/Time 01/08/2017 13:35:41
--- NOTE | 2017-01-08 14:06 | HHI.HP ---
[facility] Service [facility] Primary Care Physician Non-Staff Admission Diagnosis sepsis, right foot cellulitis/ulceration Diagnoses: Travel History International Travel<30 Days: No Contact w/Intl Traveler <30 Da: No Traveled to Known Affected Are: No Past Family Social History Allergies: Coded Allergies: No Known Allergies (Unverified , 01/07/17) Physical Exam Vital Signs Vital Signs Date Time Temp Pulse Resp B/P Pulse Ox O2 Delivery O2 Flow Rate FiO2 01/08/17 13:20 95 21 01/08/17 12:04 100.9 102 22 121/63 95 01/08/17 08:00 100.5 118 21 132/58 93 01/08/17 05:34 99.9 104 18 111/56 93 01/08/17 01:30 98.1 101 20 121/56 95 01/08/17 01:01 96 01/07/17 23:02 96 15 105/52 96 Room Air 01/07/17 22:00 102 14 104/51 96 Room Air 01/07/17 21:38 99.5 107 18 105/51 96 Room Air 01/07/17 20:07 95 Room Air 01/07/17 20:01 103.1 123 18 124/60 95 Room Air 01/07/17 19:18 98.4 130 16 110/52 96 Room Air Physical Exam GENERAL: This is a well-nourished, well-developed patient, in no apparent distress. SKIN: No rashes, ecchymoses or lesions. Cool and dry. HEAD: Atraumatic. Normocephalic. No temporal or scalp tenderness. EYES: Pupils equal round and reactive. Extraocular motions intact. No scleral icterus. No injection or drainage. ENT: Nose without bleeding, purulent drainage or septal hematoma. Throat without erythema, tonsillar hypertrophy or exudate. Uvula midline. Airway patent. NECK: Trachea midline. No JVD or lymphadenopathy. Supple, nontender, no meningeal signs. CARDIOVASCULAR: Regular rate and rhythm without murmurs, gallops, or rubs. RESPIRATORY: Clear to auscultation. Breath sounds equal bilaterally. No wheezes , rales, or rhonchi. GASTROINTESTINAL: Abdomen soft, non-tender, nondistended. No hepato-splenomegaly , or palpable masses. No guarding. MUSCULOSKELETAL: Extremities without clubbing, cyanosis, or edema. No joint tenderness, effusion, or edema noted. No calf tenderness. Negative Homans sign bilaterally. NEUROLOGICAL: Awake and alert. Cranial nerves II through XII intact. Motor and sensory grossly within normal limits. Five out of 5 muscle strength in all muscle groups. Normal speech. Laboratory Laboratory Tests Test 01/07/17 01/08/17 01/08/17 20:05 00:45 05:57 White Blood Count 13.8 8.8 Red Blood Count 3.74 3.07 Hemoglobin 11.7 9.8 Hematocrit 34.6 28.3 Mean Corpuscular Volume 92.5 91.9 Mean Corpuscular Hemoglobin 31.2 32.0 Mean Corpuscular Hemoglobin 33.8 34.8 Concent Red Cell Distribution Width 15.5 15.8 Platelet Count 264 205 Mean Platelet Volume 7.9 7.7 Neutrophils (%) (Auto) 85.5 84.0 Lymphocytes (%) (Auto) 6.4 6.1 Monocytes (%) (Auto) 7.6 6.7 Eosinophils (%) (Auto) 0.1 2.9 Basophils (%) (Auto) 0.4 0.3 Neutrophils # (Auto) 11.8 7.4 Lymphocytes # (Auto) 0.9 0.5 Monocytes # (Auto) 1.0 0.6 Eosinophils # (Auto) 0.0 0.3 Basophils # (Auto) 0.1 0.0 CBC Comment DIFF FINAL DIFF FINAL Differential Comment Erythrocyte Sedimentation Rate 56 Prothrombin Time 11.6 Prothromb Time International 1.0 Ratio Activated Partial 38.3 Thromboplast Time Sodium Level 138 143 Potassium Level 4.3 3.9 Chloride Level 101 110 Carbon Dioxide Level 29.8 25.3 Anion Gap 7 8 Blood Urea Nitrogen 23 19 Creatinine 1.93 1.55 Estimat Glomerular Filtration 33 43 Rate Random Glucose 114 87 Lactic Acid Level 1.7 Calcium Level 9.8 8.6 Magnesium Level 1.8 Total Bilirubin 0.9 Aspartate Amino Transf 15 (AST/SGOT) Alanine Aminotransferase 14 (ALT/SGPT) Alkaline Phosphatase 82 C-Reactive Protein 22.00 Total Protein 6.6 Albumin 3.1 Urine Color YELLOW Urine Turbidity CLEAR Urine pH 5.5 Urine Specific [place] 1.012 Urine Protein TRACE Urine Glucose (UA) NEG Urine Ketones NEG Urine Occult Blood NEG Urine Nitrite NEG Urine Bilirubin NEG Urine Urobilinogen LESS THAN 2.0 Urine Leukocyte Esterase NEG Urine RBC LESS THAN 1 Urine WBC 1 Urine Mucus FEW Microscopic Urinalysis Comment CATH-CULT NOT IND Date/Time Procedure Status Source Growth 01/07/17 20:10 Influenza Types A,B Antigen (ANANDA) - Final Complete Nasal Aspirate NEGATIVE FOR FLU A AND B ANTIGEN.... 01/07/17 20:10 Gram Stain - Final Resulted Wound Foot 01/07/17 20:10 Wound Culture - Preliminary Resulted Staphylococcus Aureus Staph Sp Coagulase Negative 01/07/17 20:10 Aerobic Blood Culture - Preliminary Resulted Blood Peripheral NO GROWTH IN 1 DAY 01/07/17 20:10 Anaerobic Blood Culture - Preliminary Resulted Blood Peripheral NO GROWTH IN 1 DAY Result Diagram: 01/08/17 0557 01/08/17 0557 Imaging Last Impressions Chest X-Ray 01/07/171952 Signed Impressions: Service Date/Time: , January 07, 2017 20:04 - CONCLUSION: No acute cardiopulmonary disease. Lucas Russ MD Foot X-Ray 01/07/17 0000 Signed Impressions: Service Date/Time: January 20:07 - CONCLUSION: Soft tissue swelling and lucencies of the first distal metatarsal bone and possibility of osteomyelitis is not excluded. Lucas Russ MD Assessment and Plan Assessment and Plan patient seen and examined Please refer to admission H & P for details right foot osteomyelitis continue broad spectrum antibiotics monitor cultures MRI ordered Podiatry consulted discussed with patient discussed with nursing staff nickye kareem WORKMAN labs in am Physician Certification 2 Midnight Certification Type: Admission for Inpatient Services Order for Inpatient Services The services are ordered in accordance with Medicare regulations or non- Medicare payer requirements, as applicable. In the case of services not specified as inpatient-only, they are appropriately provided as inpatient services in accordance with the 2-midnight benchmark. Estimated LOS (days): 3 days is the estimated time the patient will need to remain in the hospital, assuming treatment plan goals are met and no additional complications. Post-Hospital Plan: Home Health Areli Skinner MD Jan 08, 2017 14:06
--- NOTE | 2017-01-08 14:16 | HHI.FF ---
Face to Face Verification Diagnosis: (1) Foot infection (2) Sepsis Physical Therapy Order: Evaluate and Treat Home Health Nursing Order: Medical education Signs/symptoms of disease process Wound care and dressing changes Reception Order: To Evaluate: Support services I have seen patient Simone Hernandez II on 01/08/17. My clinical findings support the need for the requested home health care services because: Deconditioned w/ increased weakness Limited ability to care for self Need for psychosocial assistance I certify that my clinical findings support that this patient is homebound because: Post-op weakness Unsafe to leave home unassisted Need for psychosocial assistance Blanche Cooper [facility] Jan 08, 2017 14:16
[2017-01-08] MEDS ORDERED: GADOBENATE DIM PF 529 MG/ML 10ML VIAL (for RAD MRI) IV ONE (19:04)
--- NOTE | 2017-01-08 19:41 | RADRPT ---
EXAM DATE/TIME: 01/08/2017 18:11 [place] COMPARISON: FOOT RIGHT COMPLETE ([id number]), January 07, 2017, 20:07. INDICATIONS : Osteomyelitis. CONTRAST: 10 cc MultiHance (gadobenate) IV MEDICAL HISTORY : Arthritis. Basal cell skin cancer. SURGICAL HISTORY : Appendectomy. Tonsillectomy. Left knee. Cataracts. ENCOUNTER: Subsequent ACUITY: 2 day PAIN SCORE: 5/10 LOCATION: Right great toe. TECHNIQUE: Multiplanar, multisequence MRI examination was performed without contrast and after th e intravenous administration of gadolinium. FINDINGS: There is a soft tissue mass surrounding the first metatarsal head. This measures at le ast 2.8 cm in transverse dimension, 3 cm in AP dimension and 3.2 cm in length. There are erosions an d destruction of the femoral head. The erosions appear to be the most prominent feature. There is so me minimal increased signal on the inversion recovery sequences in the first metatarsal. There also appears to be similar periarticular mass seen around the second MTP joint measuring approximately 2 c m in greatest dimension. There also appear to be erosions at the bases of the first, second, third a nd fourth metatarsals. There are some erosive changes seen in the cuneiform bones. CONCLUSION: Soft tissue mass surrounding the first metatarsal head region. This is associated wi th erosions of the first metatarsal head. Minimal increased signal is seen within the marrow space. This appearance is most suggestive of a periarticular abnormality such as gout. There appear to be similar changes at the second metatarsal head. There also appear to be some erosions in the midfoot. This should be correlated clinically. Darion Bass MD on January 08, 2017 at 19:22 Board Certified Radiologist. This report was verified electronically.
[2017-01-09] VITALS: BP 124/57; PULSE 113; RESP 20; TEMP 100.3; O2SAT 94
[2017-01-09 04:00] VITALS: BP 116/63; PULSE 109; RESP 20; TEMP 100.5; O2SAT 93
[2017-01-09] MEDS: SODIUM CHLOR 0.9% 1000 ML INJ 1,000 ML IV SCH ×2 (05:11→14:50)
[2017-01-09] MEDS: PIPERACIL-TAZO 3.375 GM PREMIX 50 ML IV SCH ×2 (05:11→12:46)
[2017-01-09] MEDS: VANCOMYCIN 1,000 MG/NS 250 ML IV SCH ×2 (05:12)
[2017-01-09 08:00] VITALS: BP 115/59; PULSE 78; RESP 16; TEMP 97.3; O2SAT 96
[2017-01-09] MEDS: SODIUM CHLORIDE 0.9% FLUSH 10 ML FLUSH IV FLUSH SCH ×2 (09:15→21:08)
[2017-01-09] MEDS: CHOLECALCIFEROL (VIT D3) 1000 UNIT TAB PO SCH (09:15)
[2017-01-09] MEDS: HEPARIN SODIUM - SQ 10,000 UNITS/ML VIAL SQ SCH ×2 (09:15→21:08)
[2017-01-09] MEDS: METOPROLOL TARTRATE 25 MG TAB PO SCH ×2 (09:15→21:08)
[2017-01-09] MEDS: ALLOPURINOL 300 MG TAB PO SCH (09:15)
[2017-01-09 12:00] VITALS: BP 115/56; PULSE 97; RESP 16; TEMP 97.8; O2SAT 97
--- NOTE | 2017-01-09 12:40 | HHI.PR ---
Subjective Remarks Up in chair heels floated Bilateral heels bandaged, clean dry and intact Right lateral great toe, open with purulent drainage, packing Awake alert Febrile, early on antibiotics (Precious Marquez) Objective Objective Results - Vital Signs Date Time Temp Pulse Resp B/P Pulse Ox O2 Delivery O2 Flow Rate FiO2 01/09/17 08:00 97.3 78 16 115/59 96 01/09/17 04:00 100.5 109 20 116/63 93 01/09/17 00:00 100.3 113 20 124/57 94 01/08/17 20:00 100.0 114 20 132/63 95 01/08/17 16:00 100.8 113 23 126/95 93 01/08/17 13:20 95 21 I/O 01/08/17 01/08/17 01/08/17 01/09/17 01/09/17 01/09/17 07:00 15:00 23:00 07:00 15:00 23:00 Intake Total 740 ml 120 ml Output Total 250 ml 300 ml 300 ml Balance -250 ml 440 ml -180 ml Intake Oral 240 ml 120 ml IV Total 500 ml Output Urine Total 250 ml 300 ml 300 ml # Bowel Movements 0 0 0 (Precious Marquez) Result Diagram: 01/08/17 0557 01/08/17 0557 Other Results Last Impressions Foot MRI 01/08/17 0000 Signed Impressions: Service Date/Time: Sunday, January 08, 2017 18:11 - CONCLUSION: Soft tissue mass surrounding the first metatarsal head region. This is associated with erosions of the first metatarsal head. Minimal increased signal is seen within the marrow space. This appearance is most suggestive of a periarticular abnormality such as gout. There appear to be similar changes at the second metatarsal head. There also appear to be some erosions in the midfoot. This should be correlated clinically. Darion Bass MD Chest X-Ray 01/07/171952 Signed Impressions: Service Date/Time: January 20:04 - CONCLUSION: No acute cardiopulmonary disease. Lucas Russ MD Foot X-Ray 01/07/17 0000 Signed Impressions: Service Date/Time: January 20:07 - CONCLUSION: Soft tissue swelling and lucencies of the first distal metatarsal bone and possibility of osteomyelitis is not excluded. Lucas Russ MD Medications and IVs Active Medications Allopurinol (Zyloprim) 100 mg BID PO; Start 01/10/17 at 09:00 Colchicine (Colchicine) 0.6 mg Q6HR PO; Start 01/09/17 at 12:00; Stop 01/10/17 at 12:00 Gadobenate Dimeglumine (Multihance Pf Inj) 10 ml STK-MED ONCE IV Last administered on 01/08/17 19:04; Admin Dose 10 ML; Start 01/08/17 at 19:04; Stop 01/08/17 at 19:05; Status DC Miscellaneous Information SPECIFIC LAB TO BE ... ONCE ONCE .XX; Start at 05:45; Stop 01/11/17 at 05:46 Vancomycin HCl/ Sodium Chloride (Vancomycin Inj/ NS 250 ml Inj) 250 ml @ 250 mls/hr Q24H IV Last administered on 01/09/17 05:12; Admin Dose 250 MLS/HR; Start 01/09/17 at 06:00 (Precious Marquez) ROS General: Fatigue (mild) Skin: Other (bilateral heel wounds, right foot great toe joint wound, draining , fever, other systems negative or unremarkable) (Precious Marquez) Physical Exam Physical Exam PHYSICAL EXAMINATION GENERAL: This is a slimCaucasian male who appears to be in no acute distress. He is alert and awake, up in chair HEAD: Normocephalic without any lesion or mass noted. Facial features appear symmetric. OROPHARYNGEAL: Oropharynx without erythema or edema. NECK: Supple. No nuchal rigidity or lymphadenopathy. Trachea midline without deviation. CARDIAC: Regular rhythm, regular rate, S1 and S2 are heard. Murmur none; no gallops or rubs. LUNGS: Clear to auscultation bilaterally. ABDOMEN: Soft, nontender, no organomegaly or masses. Bowel sounds are heard in all four quadrants. No rebound. No guarding. EXTREMITIES: None edema. Dressings clean dry and intact on bilateral heel wounds, purulent drainage right great toe joint, NEUROLOGICAL: Patient mood and affect appropriate. No focal deficit SKIN:Warm and moist Objective Remarks Right foot pain when I walk on it (Precious Marquez) A/P Assessment and Plan Patient admitted with sepsis, right foot infection, MRI shows no osteomyelitis -Continue with empiric antibiotics, vancomycin and Zosyn, ID consult Follow cultures Consult podiatry for evaluation, pending Acute on chronic renal injury Monitor Osteoarthritis, status post left knee replacement. Patient states that he's been using mostly wheelchair and is somewhat debilitated due to recent complications with sepsis and pressure ulcers. Gout Consult physical therapy for evaluation and treatment, patient ambulated and cash without acute distress or shortness of breath Bilateral heel ulcers, appeared to be healing Recent right MTP joint gout, dressing with purulent drainage, small drain Continue with allopurinol, podiatry consult Hypertension, stable monitor Continue with Lopressor 25 mg by mouth every 12 Heparin for DVT prophylaxis Repeat labs in the morning Discussed With: Nurse, Family (patient), Other (Dr. Skinner, seen on her behalf) (Precious Marquez) Assessment and Plan patient seen and examined low grade fevers + Blood cultures ID consult check uric acid level continue Allopurinol and Colchicine await Podiatry recommendations discussed with patient discussed with nursing (Areli Skinner MD) Precious Marquez Jan 09, 2017 12:40 Areli Skinner MD Jan 09, 2017 13:32
[2017-01-09] MEDS: COLCHICINE 0.6 MG TAB PO SCH ×2 (12:46→17:30)
[2017-01-09 16:00] VITALS: BP 117/62; PULSE 96; RESP 16; TEMP 99.3; O2SAT 96
--- NOTE | 2017-01-09 16:26 | PD.ID.CON ---
History of Present Illness Service ID Consult Requested By Reason for Consult Evaluation and Mment of Sepsis, MSSA bacteremia. Primary Care Physician Non-Staff Diagnoses: History of Present Illness is an 81 y/o CM of Maltese Descent, from [place] originally. provided most of the history. 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 Patient was discharged to a rehabilitation facility and after his stay there he went home and noted that he had pressure areas that became ulcerated and infected. He returned to the hospital December 09 for sepsis and infection of both heels. At that time he was treated with IV antibiotics, was evaluated by vascular surgery and determined that the cause of the ulcerations was not due to vascular issues but more from constant pressure while he was at the rehabilitation facility. Patient had period of dehydration at the nursing facility and had a midline in place per . He was eventually discharged home with home health care (wound care). The wound care nurse did not like the way looked and smelled so patient was referred to wound care at [facility] [place]. His pressure ulcers were being measured and decreasing in size. Most recently he developed gout to the right MTP joint. He went to see Dr. John who noted an ulcerated area and did some debridement approximately a week ago. He was started on allopurinol. Yesterday, he started running a fever up to 102.6 with heart rate of 119 and blood pressure 134/60. His decided to bring him to the hospital for evaluation. Patient indicates that the right foot is tender in that the wound appears worse than before. In the emergency room, patient was evaluated was noted with temperature 103.1, heart rate 130, blood pressure 110/52 and sats 96% on room air. Laboratory workup was significant for WBC of 13.8, hemoglobin 11.7 and hematocrit 34.6. Sedimentation rate was 56. Patient does have underlying renal insufficiency and on this admission his creatinine was increased to 1.93, BUN 23. Lactic acid was 1.7. C-reactive protein was 182. X-ray of the foot was completed that show soft tissue swelling and lucencies of the first distal metatarsal bone and possibility of osteomyelitis. Chest x-ray did not reveal any acute findings. Cultures were obtained, patient was started on empiric antibiotics. Initial blood cultures are showing gram-positive cocci. Wound culture is positive for staph aureus. Patient is admitted for further evaluation and treatment. ID is consulted for MSSA bacteremia in setting of foot infection. Review of Systems ROS Limitations: Poor Historian Constitutional: COMPLAINS OF: Fever, Chills, Change in appetite, DENIES: Diaphoretic episodes, Fatigue, Weight gain, Weight loss, Dizziness, Night Sweats Endocrine: DENIES: Heat/cold intolerance, Polydipsia, Polyuria, Polyphagia Eyes: DENIES: Blurred vision, Diplopia, Eye inflammation, Eye pain, Vision loss , Photosensitivity, Double Vision Ears, nose, mouth, throat: DENIES: Tinnitus, Hearing loss, Vertigo, Nasal discharge, Oral lesions, Throat pain, Hoarseness, Ear Pain, Running Nose, Epistaxis, Sinus Pain, Toothache, Odynophagia Respiratory: DENIES: Apneas, Cough, Snoring, Wheezing, Hemoptysis, Sputum production, Shortness of breath Cardiovascular: DENIES: Chest pain, Palpitations, Syncope, Dyspnea on Exertion , PND, Lower Extremity Edema, Orthopnea, Claudication Gastrointestinal: DENIES: Abdominal pain, Black stools, Bloody stools, Constipation, Diarrhea, Nausea, Vomiting, Difficulty Swallowing, Anorexia Genitourinary: DENIES: Sexual dysfunction, Urinary frequency, Urinary incontinence, Urgency, Hematuria, Dysuria, Nocturia, Penile Discharge, Testicular Pain, Testicular Swelling Musculoskeletal: COMPLAINS OF: Joint pain, Joint Swelling, DENIES: Muscle aches, Stiffness, Back pain, Neck pain Integumentary: COMPLAINS OF: Abnormal pigmentation, DENIES: Nail changes, Pruritus, Rash Hematologic/lymphatic: DENIES: Bruising, Lymphadenopathy Immunologic/allergic: DENIES: Eczema, Urticaria Neurologic: DENIES: Abnormal gait, Headache, Localized weakness, Paresthesias, Seizures, Speech Problems, Tremor, Poor Balance Psychiatric: DENIES: Anxiety, Confusion, Mood changes, Depression, Hallucinations, Agitation, Suicidal Ideation, Homicidal Ideation, Delusions Except as stated in HPI: all other systems reviewed are Neg Past Family Social History Allergies: Coded Allergies: No Known Allergies (Unverified , 01/07/17) Past Medical History Recently admitted December 2016 for sepsis, bilateral heel ulcers that were infected Skin cancer, removed from nose and under right eye Degenerative disc disease Arthritis Gout Past Surgical History Left total knee replacement for every 2016 Cataract surgery Lesion from vocal cord removal Appendectomy Reported Medications Reported Meds & Active Scripts Active Metoprolol Tartrate 25 Mg Tab 25 Mg PO Q12HR Reported Allopurinol 300 Mg Tab 300 Mg PO DAILY Co Q-10 (Coenzyme Q10 (Ubidecarenone)) Unknown Strength Cap 1-2 Cap PO DAILY Fish Oil ([place]-3 Fatty Acids) 1,000 Mg Cap 1,000 Mg PO DAILY Bone Density Builder (Multiple Minerals W/ Vitamins) 1 Tab Tab 1 Tab PO DAILY Probiotic (Probiotic Product) 1 Tab Tab 1 Tab PO BID Vitamin D-3 (Cholecalciferol) 2,000 Unit Tab 2,000 Units PO DAILY Active Ordered Medications Current Medications Medications (Trade) Dose Ordered Sig/Celeste Route Start Time Stop Time Status Last Admin (NS 1000 ml Inj) 1,000 ml @ 100 mls/hr Q10H IV 01/08/17 00:00 01/09/17 14:50 (NS Flush) 2 ml UNSCH PRN IV FLUSH 01/07/17 23:30 (NS Flush) 2 ml BID IV FLUSH 01/08/17 09:00 (Tylenol) 650 mg Q4H PRN PO 01/07/17 23:30 01/08/17 21:03 (Zofran Inj) 4 mg Q6H PRN IVP 01/07/17 23:30 (Senokot) 17.2 mg Q12H PRN PO 01/07/17 23:30 (Heparin Inj) 5,000 units Q12H SQ 01/07/17 09:00 01/09/17 09:15 Naloxone HCl 0.4 mg 0.4 mg UNSCH PRN IV 01/07/17 23:30 Pharmacy Profile Note 0 ml @ 0 mls/hr UNSCH OTHER 01/07/17 23:30 (Zosyn 3.375 Gm Premix) 50 ml @ 100 mls/hr Q8H IV 01/08/17 05:00 01/09/17 12:46 (Lopressor) 25 mg Q12HR PO 01/08/17 09:00 01/09/17 09:15 Cholecalciferol 2000 units 2,000 units DAILY PO 01/08/17 09:00 01/09/17 09:15 (Vancomycin Inj/ NS 250 ml Inj) 250 ml @ 250 mls/hr Q24H IV 01/09/17 06:00 01/09/17 05:12 Miscellaneous Information SPECIFIC LAB TO BE GOLDIE... ONCE ONCE .XX 01/11/17 05:45 01/11/17 05:46 (Zyloprim) 100 mg BID PO 01/10/17 09:00 (Colchicine) 0.6 mg Q6HR PO 01/09/17 12:00 01/10/17 12:00 01/09/17 12:46 Family History reviewed and NC to current ID problems. Social History Patient is living at home with , no tobacco, no substance abuse, occasional alcohol. Smoked when he was very young. to for 40 yrs. Was born and met her in his hometown in [place]. Of [place] descent. Physical Exam Vital Signs Vital Signs Date Time Temp Pulse Resp B/P Pulse Ox O2 Delivery O2 Flow Rate FiO2 01/09/17 12:00 97.8 97 16 115/56 97 01/09/17 08:00 97.3 78 16 115/59 96 01/09/17 04:00 100.5 109 20 116/63 93 01/09/17 00:00 100.3 113 20 124/57 94 01/08/17 20:00 100.0 114 20 132/63 95 Physical Exam GENERAL: This is a well-nourished, well-developed patient, in no apparent distress. SKIN: No rashes, ecchymoses or lesions. Cool and dry. HEAD: Atraumatic. Normocephalic. No temporal or scalp tenderness. EYES: Pupils equal round and reactive. Extraocular motions intact. No scleral icterus. No injection or drainage. ENT: Nose without bleeding, purulent drainage or septal hematoma. Throat without erythema, tonsillar hypertrophy or exudate. Uvula midline. Airway patent. NECK: Trachea midline. No JVD or lymphadenopathy. Supple, nontender, no meningeal signs. CARDIOVASCULAR: RRR RESPIRATORY: Clear to auscultation. Breath sounds equal bilaterally. GASTROINTESTINAL: Abdomen soft, non-tender, nondistended. MUSCULOSKELETAL: Bilateral heel ulcers present on admission with unhealthy tissue and surrounding erythema. On medial aspect of the great toe on Right side was a large ulcer with white yellow discharge. Some white stuff looked like gouty crystals that were gritty to touch. Surrounding erythema and swelling noted. Left knee with surgical site with no evidence of infection. NEUROLOGICAL: Awake and alert. Grossly non focal. Psych: cooperative IV line sites with no e.o infection. Laboratory Laboratory Tests Test 01/09/17 15:02 Uric Acid 4.0 Date/Time Procedure Status Source Growth 01/07/17 20:10 Influenza Types A,B Antigen (ANANDA) - Final Complete Nasal Aspirate NEGATIVE FOR FLU A AND B ANTIGEN.... 01/07/17 20:10 Gram Stain - Final Complete Wound Foot 01/07/17 20:10 Wound Culture - Final Complete Staphylococcus Aureus 01/07/17 20:10 Aerobic Blood Culture - Preliminary Resulted Blood Peripheral Gram Positive Cocci 01/07/17 20:10 Anaerobic Blood Culture - Preliminary Resulted Gram Positive Cocci Result Diagram: 01/08/17 0557 01/08/17 0557 Imaging Last Impressions Foot MRI 01/08/17 0000 Signed Impressions: Service Date/Time: Sunday, January 08, 2017 18:11 - CONCLUSION: Soft tissue mass surrounding the first metatarsal head region. This is associated with erosions of the first metatarsal head. Minimal increased signal is seen within the marrow space. This appearance is most suggestive of a periarticular abnormality such as gout. There appear to be similar changes at the second metatarsal head. There also appear to be some erosions in the midfoot. This should be correlated clinically. Darion Bass MD Chest X-Ray 01/07/171952 Signed Impressions: Service Date/Time: January 20:04 - CONCLUSION: No acute cardiopulmonary disease. Lucas Russ MD Foot X-Ray 01/07/17 0000 Signed Impressions: Service Date/Time: January 20:07 - CONCLUSION: Soft tissue swelling and lucencies of the first distal metatarsal bone and possibility of osteomyelitis is not excluded. Lucas Russ MD Assessment and Plan Assessment and Plan Sepsis present on admission. MSSA bacteremia present on admission: likely secondary to foot infection. MSSA in wound. Prior MSSA, Enterobacter cloacae infection in 12/2016. First metatarsal of right foot with ulceration and cellulitis. MRI normal no osteomyelitis. Gout. H/o surgical debridement of all pressure ulcers and opening created on right great toe. HTN Acute metabolic encephalopathy: infection, sepsis. Congenital single kidney per history. Recs: Repeat blood cultures x 2. DC Zosyn IV Start Ancef IV for possible MSSA bacteremia and MSSA foot infection Continue Vanco IV pending final cultures. Target 15-20. Follow cultures Follow clinically. Gout Mment per primary. Consider diet consult for low uric acid diet. D.w Dr.Laura Zuñiga: she does not recommend surgery in setting of acute gout. Dressing changes as per instructions as below: 1. Right great toe ulcer : wet to dry dressings 2. Rest of the pressure ulcers: Santyl for local application. Wound care consult on board as well. Daksha Gaitan MD Jan 09, 2017 16:26
--- NOTE | 2017-01-09 16:59 | MB ---
cc: JOHANNE FLOR DATE OF CONSULTATION: 01/09/2017 CHIEF COMPLAINT Bilateral foot ulcerations. HISTORY OF PRESENT ILLNESS Mr. Hernandez is an 81-year-old male patient who was admitted through the emergency room with fevers and a right foot infection with multiple ulcerations. The patient had a knee replacement in November of this year and was discharged to rehab after having some adverse reactions to anesthesia. While in [facility], he developed pressure ulcerations to the posterior heels. He was discharged home and began outpatient therapy at that time. On December 09 he returned to the hospital for sepsis and infection of the heels. He was treated with IV antibiotics and has been following up with Dr. John at the [facility] [place]. His ulcerations have been getting smaller and healing appropriately, but approximately two weeks ago he started developing redness and swelling in the right first MPJ. Dr. John incised the area about one week ago and allowed for the tophi drainage to be expelled and started the patient on allopurinol. However, the drainage has actually increased and a full ulceration has developed on the medial aspect of the first MPJ. The patient stated that he started running high fevers of over 102 and was not feeling well so they decided to come to the ER for further evaluation. He did have a white count of 13.8 on evaluation and a C-reactive protein of 182 as well as a sed rate of 56. The patient states that he has been having pain in the right foot, it is tolerable but it is painful. He denies any nausea, vomiting, fever, headaches or chills currently. He is anxious for discharge home. PAST MEDICAL HISTORY 1. Foot ulcerations. 2. Skin cancer. 3. Degenerative disc disease. 4. Arthritis. 5. Gout. 6. He has one kidney. PAST SURGICAL HISTORY 1. Left total knee replacement in November of 2016. 2. Cataract surgery. 3. A lesion removed from the vocal cord. 4. Appendectomy. MEDICATIONS Please see list. ALLERGIES NO KNOWN DRUG ALLERGIES. VITAL SIGNS Temperature is 97.3 with a T-max of 103.1, pulse is 78, respiratory rate 16, blood pressure 115/59, pulse ox 96% O2 on room air. LABORATORY DATA White count is 8.8 down from 13.8, hemoglobin is 9.8, hematocrit is 28.3, platelets 205. INR 1.0. Sodium 143, potassium 3.9, chloride 110, carbon dioxide 25.3, BUN 19, random glucose 87. C-reactive protein 22. Blood cultures are positive for gram-positive cocci. Wound cultures are positive for MSSA. IMAGING X-ray and MRI of the foot show erosions of the medial first metatarsal head but no gas in the soft tissue. Increased edema around the first metatarsophalangeal joint. No signs of erosion or gas at the posterior heel aspect either. PHYSICAL EXAMINATION On physical exam the patient does have diminished but palpable DP and PT pulses with cap fill time of less than 3 seconds. Gross sensation is intact. Active range of motion to the digits is within normal limits. The left posterior heel has a wound that is approximately 2.5 cm x 1.2 cm x 0., 85% granular, 15% fibrotic, no malodor, no erythema, mild serosanguineous drainage. The right foot has a posterior heel ulcer 0.7 cm x 0.7 cm x 0 which is 50-50 fibrotic granular tissue, no erythema, no drainage, no malodor. The right first MPJ circumferentially is erythematous and swollen without streaking. Copious amounts of stringy gouty tophi were expelled from the medial metatarsal ulceration which measures 1.5 cm x 1.5 cm x 0.5 cm. It does probe deep and has a very thin layer of tissue surrounding the metatarsal head, no malodor, serous gouty drainage noted. ASSESSMENT AND PLAN 1. Bilateral stage II pressure ulcerations to the posterior heels. Daily dressing changes with a thick layer of Santyl. Offload using floating heel techniques. Weight bear as tolerated. Surgical shoes ordered. 2. Right first MPJ ulceration with cellulitis and gout. Adjustments made to allopurinol dosing and colchicine added to treatment regimen. Continue IV antibiotics. Wet to dry dressing applied in hopes of drawing out some of the tophi. Very low suspicion for osteomyelitis at this point but the patient is aware this condition can easily develop into osteomyelitis. Explained to the patient that his wound does not appear healthy enough for discharge home today but we can reevaluate tomorrow. However, given the positive blood cultures it is unlikely he will be discharged home tomorrow. I will continue to follow closely during this admission. Thank you for the consultation. Johanne ARMSTRONG /11:06 AM /4:29 PM MTDD
[2017-01-09 20:00] VITALS: BP 120/65; PULSE 106; RESP 22; TEMP 100.3; O2SAT 97
[2017-01-09] MEDS: LACTOBACILLUS ACIDOPHILUS TAB PO SCH (21:08)
[2017-01-10] VITALS: BP 126/69; PULSE 91; RESP 20; TEMP 100; O2SAT 95
[2017-01-10] MEDS: COLCHICINE 0.6 MG TAB PO SCH ×4 (00:07→22:25)
[2017-01-10] MEDS: SODIUM CHLOR 0.9% 1000 ML INJ 1,000 ML IV SCH ×2 (00:22→10:57)
[2017-01-10 04:00] VITALS: BP 120/80; PULSE 90; RESP 22; TEMP 99.4; O2SAT 97
[2017-01-10] MEDS: VANCOMYCIN 1,000 MG/NS 250 ML IV SCH ×2 (06:27)
[2017-01-10] MEDS: LACTOBACILLUS ACIDOPHILUS TAB PO SCH ×2 (08:12→22:25)
[2017-01-10] MEDS: METOPROLOL TARTRATE 25 MG TAB PO SCH ×2 (08:12→22:24)
[2017-01-10] MEDS: HEPARIN SODIUM - SQ 10,000 UNITS/ML VIAL SQ SCH ×2 (08:12→22:25)
[2017-01-10] MEDS: ALLOPURINOL 100 MG TAB PO SCH ×2 (08:12→22:25)
[2017-01-10] MEDS: SODIUM CHLORIDE 0.9% FLUSH 10 ML FLUSH IV FLUSH SCH ×2 (08:13→22:25)
[2017-01-10] MEDS: CHOLECALCIFEROL (VIT D3) 1000 UNIT TAB PO SCH (08:13)
[2017-01-10] MEDS: COLLAGENASE OINT 30 GM TUBE TOPICAL SCH (08:13)
[2017-01-10 08:18] VITALS: BP 130/69; PULSE 95; RESP 18; TEMP 99.2; O2SAT 95
[2017-01-10 08:24] LABS: AUTOMATED NEUTROPHIL # 4.9 TH/MM3 (1.8-7.7); BASOPHIL % 0.6 % (0.0-2.0); EOSINOPHIL # 0.3 TH/MM3 (0-0.4); EOSINOPHIL % 4.5 % (0.0-4.0); HEMATOCRIT 28.5 % (39.0-51.0); HEMO FLAGS DIFF FINAL; LYMPH % 12.5 % (9.0-44.0); LYMPHOCYTE # 0.8 TH/MM3 (1.0-4.8); MEAN CELL VOLUME 91.7 FL (80.0-100.0); MEAN CORPUSCULAR HEMOGLOBIN 30.7 PG (27.0-34.0); MEAN CORPUSCULAR HGB CONC 33.4 % (32.0-36.0); MONO % 9.6 % (0.0-8.0); NEUT % 72.8 % (16.0-70.0); PLATELET COUNT 212 TH/MM3 (150-450); RED CELL DISTRIBUTION WIDTH 15.5 % (11.6-17.2); WHITE BLOOD COUNT 6.7 TH/MM3 (4.0-11.0)
[2017-01-10 08:47] LABS: BICARBONATE 24.7 MEQ/L (21.0-32.0); POTASSIUM 3.5 MEQ/L (3.5-5.1)
--- NOTE | 2017-01-10 10:46 | PD.POD ---
Subjective Podiatric Problems Patient states he is feeling better, but spoke with yesterday and understands that he can not be discharged today because of the positive blood cultures. He is hoping for discharge tomorrow. He denies any n/v/f/h/c/sob. Pain score: 1 Past Med/Surg/Social History Social History Smoking Status: Former Smoker Objective Vital Signs Vital Signs Date Time Temp Pulse Resp B/P Pulse Ox O2 Delivery O2 Flow Rate FiO2 01/10/17 08:18 99.2 95 18 130/69 95 01/10/17 04:00 99.4 90 22 120/80 97 01/10/17 00:00 100.0 91 20 126/69 95 01/09/17 20:00 100.3 106 22 120/65 97 01/09/17 16:00 99.3 96 16 117/62 96 01/09/17 12:00 97.8 97 16 115/56 97 Coded Allergies: No Known Allergies (Unverified , 01/07/17) Physical Exam Remarks Exam is unchanged from consultation with the exception of decreased erythema and edema to the right medial foot wound. Assessment & Plan A/P 1) Bilateral heel ulcerations, non infected 2) Right foot stage III ulcer secondary to gout with resolving cellulitis -daily dressing changes, pt is known to [facility] -new blood cultures are pending -Dr. Gaitan to determine abx -avoid pressure to wound site -pt will f/u with at d/c, but was encouraged to come to my office if unable to get an appt within 3-5 days -pt does not need colchicine at time of d/c, but I do recommend a medrol dose pack to reduce the gouty inflammation around the wound site Johanne Zuñiga DPM Jan 10, 2017 10:46
--- NOTE | 2017-01-10 11:27 | HHI.PR ---
Subjective Remarks Resting in bed but has been up in room and ambulated heels floated Bilateral heels bandaged , followed per podiatry and wound care Awake alert Febrile mild today (Precious Marquez) Objective Objective Results - Vital Signs Date Time Temp Pulse Resp B/P Pulse Ox O2 Delivery O2 Flow Rate FiO2 01/10/17 08:18 99.2 95 18 130/69 95 01/10/17 04:00 99.4 90 22 120/80 97 01/10/17 00:00 100.0 91 20 126/69 95 01/09/17 20:00 100.3 106 22 120/65 97 01/09/17 16:00 99.3 96 16 117/62 96 01/09/17 12:00 97.8 97 16 115/56 97 I/O 01/09/17 01/09/17 01/09/17 01/10/17 01/10/17 01/10/17 07:00 15:00 23:00 07:00 15:00 23:00 Intake Total 120 ml 360 ml 1200 ml Output Total 300 ml 600 ml Balance -180 ml 360 ml 600 ml Intake Oral 120 ml 360 ml IV Total 1200 ml Output Urine Total 300 ml 600 ml # Voids 2 1 # Bowel Movements 0 1 1 (Precious Marquez) Result Diagram: 01/10/17 0610 01/10/17 0610 ROS General: Fatigue, Weakness, Other (10 point ROS done positives noted on record) Neuro/MS: Other (gout, with wound on right great toe joint, bilateral heel wounds) (Precious Marquez) Physical Exam Physical Exam PHYSICAL EXAMINATION GENERAL: This is a well-developed, well-nourished male who appears to be in no acute distress. He is dozing in bed but arouses easily HEAD: Normocephalic without any lesion or mass noted. Facial features appear symmetric. OROPHARYNGEAL: Oropharynx without erythema or edema. NECK: Supple. No nuchal rigidity or lymphadenopathy. Trachea midline without deviation. CARDIAC: Regular rhythm, regular rate, S1 and S2 are heard. Murmur none no gallops or rubs. LUNGS: Clear to auscultation bilaterally. ABDOMEN: Soft, nontender, no organomegaly or masses. Bowel sounds are heard in all four quadrants. No rebound. No guarding. EXTREMITIES: [] edema. Pulses equal bilateral. [] cyanosis. NEUROLOGICAL: Patient mood and affect appropriate responses. SKIN:Warm and moist Objective Remarks Doing okay (Precious Marquez) A/P Assessment and Plan Vital signs reviewed, still show some mild febrile low-grade, otherwise vital stable Labs reviewed, acute kidney injury improved, creatinine 1.36 Anemia stable hemoglobin 9.5 Potassium 3.5, monitor labs for any further decrease Patient admitted with sepsis, right foot infection, MRI shows no osteomyelitis -Continue with empiric antibiotics, vancomycin and Zosyn, ID consult Recommendation is to repeat blood cultures 2 Start Ancef IV for him as as a bacteremia and DHAVAL a foot infection DC Zosyn IV but continue vancomycin IV Acute on chronic renal injury Monitor labs and medication management Osteoarthritis, status post left knee replacement. Patient states that he's been using mostly wheelchair at home Consult physical therapy for evaluation and treatment, patient up with PT this morning, has been given exercises he can perform in the bed Bilateral heel ulcers, appeared to be healing Wound care management team as well as podiatry Recent right MTP joint gout, dressing with purulent drainage, small drain Continue with allopurinol, Podiatry dressing recommendations per Dr. Zuñiga Right great toe ulcer wet-to-dry Pressure ulcers bilateral heels Sallyyl, wound care team assistance Hypertension, stable monitor Continue with Lopressor 25 mg by mouth every 12 Heparin for DVT prophylaxis Repeat labs in the morning Diet changed to low uric acid diet Discharge Planning Home with home health when patient is stable, Discussed With: Nurse, Family (patient and ), Other (Dr. Skinner, seen on her behalf) (Precious Marquez) Assessment and Plan patient seen and examined Continue antibiotics monitor blood cultures discussed with patient/ at bed side discussed with Precious WORKMAN (Areli Skinner MD) Precious Marquez Jan 10, 2017 11:27 Areli Skinner MD Jan 10, 2017 13:31
[2017-01-10 12:49] VITALS: BP 131/71; PULSE 85; RESP 18; TEMP 99; O2SAT 96
[2017-01-10] MEDS ORDERED: ceFAZolin 2 GM PREMIX 50 ML IV SCH (16:36)
[2017-01-10 16:40] VITALS: BP 136/72; PULSE 99; RESP 18; TEMP 99.3; O2SAT 94
[2017-01-10] MEDS: ceFAZolin 2 GM PREMIX 50 ML IV SCH (16:57)
[2017-01-10 20:00] VITALS: BP_SYST 136; BP_SYST 175; BP_DIAS 100; BP_DIAS 65; PULSE 103; PULSE 111; RESP 18; RESP 20; TEMP 97.4; TEMP 99.5; O2SAT 94; O2SAT 96
[2017-01-11] VITALS: BP 120/64; PULSE 93; RESP 18; TEMP 98.1; O2SAT 96
[2017-01-11] MEDS: ceFAZolin 2 GM PREMIX 50 ML IV SCH ×3 (01:04→18:40)
[2017-01-11 04:00] VITALS: BP 123/59; PULSE 84; RESP 18; TEMP 97.2; O2SAT 92
[2017-01-11] MEDS ORDERED: PHARMACY ORDERED LAB ONE (05:45)
[2017-01-11] MEDS: SODIUM CHLOR 0.9% 1000 ML INJ 1,000 ML IV SCH ×3 (08:00→18:00)
[2017-01-11 08:46] VITALS: BP 123/60; PULSE 88; RESP 20; TEMP 97.6
[2017-01-11] MEDS: COLLAGENASE OINT 30 GM TUBE TOPICAL SCH (09:00)
[2017-01-11] MEDS: SODIUM CHLORIDE 0.9% FLUSH 10 ML FLUSH IV FLUSH SCH ×2 (09:00→22:17)
[2017-01-11] MEDS: METOPROLOL TARTRATE 25 MG TAB PO SCH ×2 (09:12→22:16)
[2017-01-11] MEDS: COLCHICINE 0.6 MG TAB PO SCH ×2 (09:12→22:16)
[2017-01-11] MEDS: ALLOPURINOL 100 MG TAB PO SCH ×2 (09:12→22:17)
[2017-01-11] MEDS: LACTOBACILLUS ACIDOPHILUS TAB PO SCH ×2 (09:12→22:17)
[2017-01-11] MEDS: HEPARIN SODIUM - SQ 10,000 UNITS/ML VIAL SQ SCH ×2 (09:13→22:16)
[2017-01-11] MEDS: CHOLECALCIFEROL (VIT D3) 1000 UNIT TAB PO SCH (09:13)
--- NOTE | 2017-01-11 12:20 | HHI.PR ---
Subjective Remarks up in chair heels floated Awake alert high fever, 99.3 wound care, dressings clean/dry/intact, bilateral heels, rt. great toe. (Precious Marquez) Objective Objective Results - Vital Signs Date Time Temp Pulse Resp B/P Pulse Ox O2 Delivery O2 Flow Rate FiO2 01/11/17 08:46 97.6 88 20 123/60 01/11/17 04:00 97.2 84 18 123/59 92 01/11/17 00:00 98.1 93 18 120/64 96 01/10/17 20:00 99.5 103 18 136/65 94 01/10/17 16:40 99.3 99 18 136/72 94 01/10/17 12:49 99.0 85 18 131/71 96 I/O 01/10/17 01/10/17 01/10/17 01/11/17 01/11/17 01/11/17 07:00 15:00 23:00 07:00 15:00 23:00 Intake Total 1200 ml Output Total 600 ml Balance 600 ml IV Total 1200 ml Output Urine Total 600 ml # Voids 1 2 # Bowel Movements 1 3 (Precious Marquez) Result Diagram: 01/10/17 0610 01/10/17 0610 ROS General: Fatigue, Weakness (generalized) Skin: Other (right great toe wound, bilateral heels, IV antibiotic, sepsis, dressings clean dry and intact, generalized weakness and fatigue from immobility otherwise systems negative) (Precious Marquez) Physical Exam Physical Exam PHYSICAL EXAMINATION GENERAL: This is a slim well-developed, well-nourished male who appears to be in no acute distress. He is alert and awake, answers questions appropriately HEAD: Normocephalic without any lesion or mass noted. Facial features appear symmetric. OROPHARYNGEAL: Oropharynx without erythema or edema. NECK: Supple. No nuchal rigidity or lymphadenopathy. Trachea midline without deviation. CARDIAC: Regular rhythm, regular rate, S1 and S2 are heard. Murmur none no gallops or rubs. LUNGS: Clear to auscultation bilaterally. ABDOMEN: Soft, nontender, no organomegaly or masses. Bowel sounds are heard in all four quadrants. No rebound. No guarding. EXTREMITIES: No edema. Pulses intact , right great toe gouty wound, open, dressing occlusive clean dry and intact, heels and both feet elevated 98% of the time NEUROLOGICAL: Patient mood and affect appropriate. No focal deficit SKIN:Warm and moist Objective Remarks I'm doing okay but she would like to go home (Precious Marquez) A/P Assessment and Plan Vital signs reviewed, still show some mild febrile low-grade, otherwise vital stable Patient admitted with sepsis, right foot infection MSSA, MRI shows no osteomyelitis -Continue with IV antibiotics, vancomycin and Ancef, ID consult Recommendation is to repeat blood cultures 2 on 01-10 if these cultures come back negative, we'll work on an outpatient, home plan Acute on chronic renal injury Monitor labs and medication management Osteoarthritis, status post left knee replacement. Patient states that he's been using mostly wheelchair at home Consult physical therapy for evaluation and treatment, patient up with PT this morning, has been given exercises he can perform in the bed. Bilateral heel ulcers, appeared to be healing Wound care management team as well as podiatry Recent right MTP joint gout, dressing with purulent drainage, small drain Continue with allopurinol, Podiatry dressing recommendations per Dr. Zuñiga Right great toe ulcer wet-to-dry Pressure ulcers bilateral heels Santyl, wound care team assistance Low uric acid diet Heparin for DVT prophylaxis Discharge Planning Home with home health when patient is stable, Discussed With: Nurse, Family (patient and ), Other (Dr. Skinner, seen on her behalf) (Precious Marquez) Assessment and Plan patient seen and examined had some diarrhea overnight none since am wants to go home discussed with Dr Gaitan will need i/v antibiotics at discharge monitor repeat blood cultures discussed with patient discussed with Precious WORKMAN (Areli Skinner MD) Precious Marquez Jan 11, 2017 12:19 Areli Skinner MD Jan 11, 2017 15:37
--- NOTE | 2017-01-11 12:44 | HHI.IDPN ---
Subjective Subjective Remarks is an 81 y.o CM with PMHx of HTN, Gout on allopurinol, osteoarthritis , s/p left knee replacement on 11/16/16. MSSA bacteremia and MSSA cellulitis, infected gouty ulcer. Overnight events reviewed. No fever No rash No diarrhea Tolerating meds. Eager to be discharged. Antibiotics Ancef IV Lines Line sites with no e.o infection Past Medical History reviewed Allergies: Coded Allergies: No Known Allergies (Unverified , 01/07/17) Objective . Vital Signs Date Time Temp Pulse Resp B/P Pulse Ox O2 Delivery O2 Flow Rate FiO2 01/11/17 08:46 97.6 88 20 123/60 01/11/17 04:00 97.2 84 18 123/59 92 01/11/17 00:00 98.1 93 18 120/64 96 01/10/17 20:00 99.5 103 18 136/65 94 01/10/17 16:40 99.3 99 18 136/72 94 01/10/17 12:49 99.0 85 18 131/71 96 01/10/17 01/10/17 01/11/17 15:00 23:00 07:00 # Voids 1 2 # Bowel Movements 1 3 . Laboratory Tests Test 01/10/17 06:10 White Blood Count 6.7 TH/MM3 Red Blood Count 3.10 MIL/MM3 Hemoglobin 9.5 GM/DL Hematocrit 28.5 % Mean Corpuscular Volume 91.7 FL Mean Corpuscular Hemoglobin 30.7 PG Mean Corpuscular Hemoglobin 33.4 % Concent Red Cell Distribution Width 15.5 % Platelet Count 212 TH/MM3 Mean Platelet Volume 7.9 FL Neutrophils (%) (Auto) 72.8 % Lymphocytes (%) (Auto) 12.5 % Monocytes (%) (Auto) 9.6 % Eosinophils (%) (Auto) 4.5 % Basophils (%) (Auto) 0.6 % Neutrophils # (Auto) 4.9 TH/MM3 Lymphocytes # (Auto) 0.8 TH/MM3 Monocytes # (Auto) 0.6 TH/MM3 Eosinophils # (Auto) 0.3 TH/MM3 Basophils # (Auto) 0.0 TH/MM3 CBC Comment DIFF FINAL Differential Comment Laboratory Tests Test 01/09/17 01/10/17 15:02 06:10 Uric Acid 4.0 MG/DL Sodium Level 141 MEQ/L Potassium Level 3.5 MEQ/L Chloride Level 108 MEQ/L Carbon Dioxide Level 24.7 MEQ/L Anion Gap 8 MEQ/L Blood Urea Nitrogen 14 MG/DL Creatinine 1.36 MG/DL Estimat Glomerular Filtration 50 ML/MIN Rate Random Glucose 80 MG/DL Calcium Level 8.4 MG/DL Microbiology Date/Time Procedure Status Source Growth 01/10/17 07:16 Aerobic Blood Culture - Preliminary Resulted Blood Peripheral NO GROWTH IN 1 DAY 01/10/17 07:16 Anaerobic Blood Culture - Preliminary Resulted Blood Peripheral NO GROWTH IN 1 DAY Imaging Last Impressions Foot MRI 01/08/17 0000 Signed Impressions: Service Date/Time: Sunday, January 08, 2017 18:11 - CONCLUSION: Soft tissue mass surrounding the first metatarsal head region. This is associated with erosions of the first metatarsal head. Minimal increased signal is seen within the marrow space. This appearance is most suggestive of a periarticular abnormality such as gout. There appear to be similar changes at the second metatarsal head. There also appear to be some erosions in the midfoot. This should be correlated clinically. Darion Bass MD Chest X-Ray 01/07/171952 Signed Impressions: Service Date/Time: January 20:04 - CONCLUSION: No acute cardiopulmonary disease. Lucas Russ MD Foot X-Ray 01/07/17 0000 Signed Impressions: Service Date/Time: January 20:07 - CONCLUSION: Soft tissue swelling and lucencies of the first distal metatarsal bone and possibility of osteomyelitis is not excluded. Lucas Russ MD Physical Exam GENERAL: This is a well-nourished, well-developed patient, in no apparent distress. SKIN: No rashes, ecchymoses or lesions. Cool and dry. HEAD: Atraumatic. Normocephalic. No temporal or scalp tenderness. EYES: Pupils equal round and reactive. Extraocular motions intact. No scleral icterus. No injection or drainage. ENT: Nose without bleeding, purulent drainage or septal hematoma. Throat without erythema, tonsillar hypertrophy or exudate. Uvula midline. Airway patent. NECK: Trachea midline. No JVD or lymphadenopathy. Supple, nontender, no meningeal signs. CARDIOVASCULAR: RRR RESPIRATORY: Clear to auscultation. Breath sounds equal bilaterally. GASTROINTESTINAL: Abdomen soft, non-tender, nondistended. MUSCULOSKELETAL: Bilateral heel ulcers present on admission with unhealthy tissue and surrounding erythema. On medial aspect of the great toe on Right side was a large ulcer with white yellow discharge. Some white stuff looked like gouty crystals that were gritty to touch. Surrounding erythema and swelling noted. Left knee with surgical site with no evidence of infection. Overall feet bilaterally slightly better today. NEUROLOGICAL: Awake and alert. Grossly non focal. Psych: cooperative IV line sites with no e.o infection. Assessment & Plan Remarks Sepsis present on admission. MSSA bacteremia present on admission: likely secondary to foot infection. MSSA in wound. Prior MSSA, Enterobacter cloacae infection in 12/2016. First metatarsal of right foot with ulceration and cellulitis. MRI normal no osteomyelitis. Gout. H/o surgical debridement of all pressure ulcers and opening created on right great toe. HTN Acute metabolic encephalopathy: infection, sepsis. Congenital single kidney per history. Recs: Follow repeat blood cultures. Continue Ancef IV for possible MSSA bacteremia and MSSA foot infection Follow cultures Follow clinically. Gout Mment per primary. Consider diet consult for low uric acid diet. D.w Dr.Laura Zuñiga: she does not recommend surgery in setting of acute gout. Dressing changes as per instructions as below: 1. Right great toe ulcer : wet to dry dressings 2. Rest of the pressure ulcers: Santyl for local application. d/w case management not ready for discharge. Will need IV ABX on DC D.w , patient and family in room. Daksha Gaitan MD Jan 11, 2017 12:44
[2017-01-11 13:11] VITALS: BP 136/62; PULSE 85; RESP 20; TEMP 95.3; O2SAT 98
--- NOTE | 2017-01-11 16:02 | PD.POD ---
Subjective Podiatric Problems Pt comfortable bedside with Pain score: 2 Past Med/Surg/Social History Social History Smoking Status: Former Smoker Objective Vital Signs Vital Signs Date Time Temp Pulse Resp B/P Pulse Ox O2 Delivery O2 Flow Rate FiO2 01/11/17 13:11 95.3 85 20 136/62 98 01/11/17 08:46 97.6 88 20 123/60 01/11/17 04:00 97.2 84 18 123/59 92 01/11/17 00:00 98.1 93 18 120/64 96 01/10/17 20:00 99.5 103 18 136/65 94 01/10/17 16:40 99.3 99 18 136/72 94 Coded Allergies: No Known Allergies (Unverified , 01/07/17) Physical Exam Remarks Bilateral heel decubidus ulcers, no sign of infection, superficial left about 2 cm x .2cm and right about 3 cm x .3 cm mild fibrosis Right medial open wound with apparent gouty viscous fluid coming from deep capsule with localized first mtp redness Assessment & Plan A/P Right s/p gout surgery per Eleazar- wound redressed, waiting further culture report Bialteral pressure heel wound-redressed with santyl Pt will possibly need further intervention for the wound wound with gout and possible infection but may be able to be done as outpatient per Dr. Bush but will await cultures to assess infection Sadiq Tan DPM Jan 11, 2017 16:02
[2017-01-11 16:15] VITALS: BP 118/59; PULSE 92; RESP 20; TEMP 97.4; O2SAT 92
[2017-01-11 20:58] VITALS: BP 131/67; PULSE 111; RESP 18; TEMP 97.6; O2SAT 96
[2017-01-12] VITALS (7 sets, daily range): BP systolic 104–128; BP diastolic 53–71; PULSE 77–95; RESP 16–20; TEMP 97.9–99.1; O2SAT 93–97
[2017-01-12] MEDS: ceFAZolin 2 GM PREMIX 50 ML IV SCH ×3 (00:47→17:48)
[2017-01-12] MEDS: SODIUM CHLOR 0.9% 1000 ML INJ 1,000 ML IV SCH ×2 (03:36→14:01)
[2017-01-12] MEDS: COLLAGENASE OINT 30 GM TUBE TOPICAL SCH (09:00)
[2017-01-12] MEDS: SODIUM CHLORIDE 0.9% FLUSH 10 ML FLUSH IV FLUSH SCH ×2 (09:00→21:23)
[2017-01-12] MEDS: LACTOBACILLUS ACIDOPHILUS TAB PO SCH ×2 (09:05→21:23)
[2017-01-12] MEDS: ALLOPURINOL 100 MG TAB PO SCH ×2 (09:05→21:23)
[2017-01-12] MEDS: HEPARIN SODIUM - SQ 10,000 UNITS/ML VIAL SQ SCH ×2 (09:06→21:23)
[2017-01-12] MEDS: METOPROLOL TARTRATE 25 MG TAB PO SCH ×2 (09:07→21:23)
[2017-01-12] MEDS: CHOLECALCIFEROL (VIT D3) 1000 UNIT TAB PO SCH (09:07)
[2017-01-12] MEDS: COLCHICINE 0.6 MG TAB PO SCH ×2 (09:08→21:23)
--- NOTE | 2017-01-12 09:22 | HHI.PR ---
Subjective Remarks Alert resting in bed, conversational heels floated in at the end of our visit with coffee and breakfast wound care, dressings clean/dry/intact, bilateral heels, rt. great toe. Day 1 blood cultures repeated negative so far (Precious Marquez) Objective Objective Results - Vital Signs Date Time Temp Pulse Resp B/P Pulse Ox O2 Delivery O2 Flow Rate FiO2 01/12/17 08:24 97.9 83 20 124/61 93 01/12/17 05:14 98.0 83 18 108/53 96 01/12/17 00:46 99.1 95 18 128/59 94 01/11/17 20:58 97.6 111 18 131/67 96 01/11/17 16:15 97.4 92 20 118/59 92 01/11/17 13:11 95.3 85 20 136/62 98 I/O 01/11/17 01/11/17 01/11/17 01/12/17 01/12/17 01/12/17 07:00 15:00 23:00 07:00 15:00 23:00 Intake Total 720 ml Output Total 400 ml Balance 720 ml -400 ml Intake Oral 720 ml Output Urine Total 400 ml # Voids 4 # Bowel Movements 1 1 (Precious Marquez) Result Diagram: 01/10/17 0610 01/10/17 0610 ROS General: Weakness (generalized but improving, ) Skin: Other (bilateral heel wounds wrapped, healing right great toe wound wrapped with some drainage noted on dressing other systems negative or unremarkable) (Precious Marquez) Physical Exam Physical Exam PHYSICAL EXAMINATION GENERAL: This is a well-developed, slim male who appears to be in no acute distress. He is alert and awake, answers questions appropriately HEAD: Normocephalic without any lesion or mass noted. Facial features appear symmetric. OROPHARYNGEAL: Oropharynx without erythema or edema. NECK: Supple. No nuchal rigidity or lymphadenopathy. Trachea midline without deviation. CARDIAC: Regular rhythm, regular rate, S1 and S2 are heard. Murmur none no gallops or rubs. LUNGS: Clear to auscultation bilaterally. ABDOMEN: Soft, nontender, no organomegaly or masses. Bowel sounds are heard in all four quadrants. No rebound. No guarding. EXTREMITIES: No edema. Pulses equal bilateral. NEUROLOGICAL: Patient mood and affect appropriate. No focal deficit SKIN:Warm and moist Objective Remarks I really hope I can go home tomorrow afternoon (Precious Marquez) A/P Assessment and Plan Vital signs reviewed, one temp 99 1 otherwise normal ranges, otherwise vital stable Patient admitted with sepsis, right foot infection MSSA, MRI shows no osteomyelitis -Continue with IV antibiotics, vancomycin and Ancef, ID consult Recommendation is to repeat blood cultures 2 on 4-9 day 1 to culture of blood negative. Discussed with patient and his discharge planning. He is so anxious to get home if at all possible. Acute on chronic renal injury Monitor labs and medication management Osteoarthritis, status post left knee replacement. Patient states that he's been using mostly wheelchair at home PT come in and working with patient, out of bed daily and ambulates daily protection to his heels and right great toe. Bilateral heel ulcers, appeared to be healing, ID following for antibiotic management. Wound care management team as well as podiatry Recent right MTP joint gout, dressing with purulent drainage, small drain Continue with allopurinol, Podiatry dressing recommendations per Dr. Zuñiga Right great toe ulcer wet-to-dry Pressure ulcers bilateral heels Santyl, wound care team assistance Low uric acid diet Heparin for DVT prophylaxis Discharge planning, with case management and ID, when patient is stable from no blood infection. Patient and his understand plan Discharge Planning Home with home health when patient is stable, Discussed With: Nurse, Family (patient and ), Other (Dr. Skinner, seen on her behalf) (Precious Marquez) Assessment and Plan Patient seen and examined dOING WELL REPEAT bLOOD CULTURES NEG X2 DAYS will need PICC for discharge and i/v antibiotics per ID recommendations discussed with patient discussed with nursing staff discussed with Precious WORKMAN (Areli Skinner MD) Precious Marquez Jan 12, 2017 09:22 Areli Skinner MD Jan 12, 2017 14:12
[2017-01-12 10:24] LABS: BICARBONATE 25.3 MEQ/L (21.0-32.0); POTASSIUM 3.6 MEQ/L (3.5-5.1)
[2017-01-13] MEDS: ceFAZolin 2 GM PREMIX 50 ML IV SCH ×3 (01:00→17:47)
[2017-01-13 04:25] VITALS: BP 124/61; PULSE 80; RESP 16; TEMP 97.5; O2SAT 95
[2017-01-13 07:37] VITALS: BP 156/74; PULSE 84; RESP 18; TEMP 97.1; O2SAT 97
--- NOTE | 2017-01-13 08:01 | PD.POD ---
Subjective Podiatric Problems Pt comfortable bedside ready to go home Pain score: 3 Past Med/Surg/Social History Social History Smoking Status: Former Smoker Objective Vital Signs Vital Signs Date Time Temp Pulse Resp B/P Pulse Ox O2 Delivery O2 Flow Rate FiO2 01/13/17 04:25 97.5 80 16 124/61 95 01/12/17 23:47 98.2 79 18 115/59 97 01/12/17 20:43 98.4 89 16 121/67 94 01/12/17 16:07 98.1 77 20 127/71 01/12/17 12:00 97.9 78 20 104/55 01/12/17 08:24 97.9 83 20 124/61 93 Coded Allergies: No Known Allergies (Unverified , 01/07/17) Physical Exam Remarks Left heel mild fibrotic ulcer superficial no probe to bone and no edema or redness Right heel mild fibrosis and no sign of traking or deep wound Right first open MTP joint s/p I and D per Dr. Bush stable chalky discharge redness vastly improved around open wound, wound probes to capsule Assessment & Plan A/P Right s/p gout surgery per Eleazar- wound redressed, waiting last blood culture report to allow D/c Bialteral pressure heel wound-redressed with santyl Pt ok for D/C from podiatry standpoint. Pt is a patient of Dr. Bush and already has outpatient appointment Sadiq Tan DPM Jan 13, 2017 08:01
[2017-01-13] MEDS: LACTOBACILLUS ACIDOPHILUS TAB PO SCH ×2 (08:37→21:51)
[2017-01-13] MEDS: COLCHICINE 0.6 MG TAB PO SCH ×2 (08:37→21:00)
[2017-01-13] MEDS: METOPROLOL TARTRATE 25 MG TAB PO SCH ×2 (08:37→21:51)
[2017-01-13] MEDS: HEPARIN SODIUM - SQ 10,000 UNITS/ML VIAL SQ SCH ×2 (08:38→21:53)
[2017-01-13] MEDS: SODIUM CHLORIDE 0.9% FLUSH 10 ML FLUSH IV FLUSH SCH ×2 (08:38→21:00)
[2017-01-13] MEDS: ALLOPURINOL 100 MG TAB PO SCH ×2 (08:38→21:51)
[2017-01-13] MEDS: COLLAGENASE OINT 30 GM TUBE TOPICAL SCH (08:46)
[2017-01-13] MEDS: CHOLECALCIFEROL (VIT D3) 1000 UNIT TAB PO SCH (08:46)
--- NOTE | 2017-01-13 11:02 | HHI.PR ---
Subjective Remarks Afebrile Alert resting in bed, conversational heels floated in rm. Day 2 blood cultures repeated negative so far Objective Objective Results - Vital Signs Date Time Temp Pulse Resp B/P Pulse Ox O2 Delivery O2 Flow Rate FiO2 01/13/17 07:37 97.1 84 18 156/74 97 01/13/17 04:25 97.5 80 16 124/61 95 01/12/17 23:47 98.2 79 18 115/59 97 01/12/17 20:43 98.4 89 16 121/67 94 01/12/17 16:07 98.1 77 20 127/71 01/12/17 12:00 97.9 78 20 104/55 I/O 01/12/17 01/12/17 01/12/17 01/13/17 01/13/17 01/13/17 07:00 15:00 23:00 07:00 15:00 23:00 Intake Total 929 ml 720 ml Output Total 400 ml 300 ml 650 ml Balance -400 ml 929 ml 420 ml -650 ml Intake Oral 929 ml 720 ml Output Urine Total 400 ml 300 ml 650 ml # Bowel Movements 1 0 1 Result Diagram: 01/10/17 0610 01/12/17 0848 ROS General: Weakness (mild, ambulates with PT) Skin: Other (wounds bilateral heels right great toe. Cleaned and wrapped per podiatry early this a.m.. Bowel regimen normal, other systems unremarkable) Physical Exam Physical Exam PHYSICAL EXAMINATION GENERAL: This is a well-developed, well-nourished male who appears to be in no acute distress. He is alert and awake, oriented 4 HEAD: Normocephalic without any lesion or mass noted. Facial features appear symmetric. OROPHARYNGEAL: Oropharynx without erythema or edema. NECK: Supple. No nuchal rigidity or lymphadenopathy. Trachea midline without deviation. CARDIAC: Regular rhythm, regular rate, S1 and S2 are heard. Murmur soft no gallops or rubs. LUNGS: Clear to auscultation bilaterally. no wheeze, no rhonchi ABDOMEN: Soft, nontender, no organomegaly or masses. Bowel sounds are heard in all four quadrants. No rebound. No guarding. EXTREMITIES: Right foot mild edema. Dressing clean dry and intact Pulses equal bilateral. NEUROLOGICAL: Patient mood and affect appropriate. No focal deficit SKIN:Warm and moist Objective Remarks I'm really hoping to go home possibly this p.m.?? A/P Assessment and Plan Vital signs reviewed, afebrile today otherwise normal ranges, otherwise vital stable Patient admitted with sepsis, gout right foot infection MSSA, MRI shows no osteomyelitis -Continue with IV antibiotics, vancomycin and Ancef, ID consult, is optimally in charge of his discharge planning and IV antibiotics needed PICC line to be inserted today Recommendation is to repeat blood cultures 2 on 4-9 day 2 to culture of blood negative. Discussed with patient and his discharge planning. He is so anxious to get home if at all possible. Acute on chronic renal injury Monitor labs and medication management Osteoarthritis, status post left knee replacement. Patient states that he's been using mostly wheelchair at home PT come in and working with patient, out of bed daily and ambulates daily protection to his heels and right great toe. Bilateral heel ulcers, appeared to be healing, ID following for antibiotic management. Wound care per podiatry, done early a.m. dressing changes Recent right MTP joint gout, dressing with purulent drainage, small drain Continue with allopurinol, Podiatry dressing recommendations per Dr. Zuñiga Right great toe ulcer wet-to-dry Pressure ulcers bilateral heels Santyl, Low uric acid diet Heparin for DVT prophylaxis Discharge planning, with case management and ID, when patient is stable from no blood infection. PICC line today Patient and his understand plan Discharge Planning Home with home health when patient is stable, Discussed With: Nurse, Family (patient and ), Other (Dr. Skinner, seen on her behalf) Precious Marquez Jan 13, 2017 11:02
[2017-01-13 11:45] VITALS: BP 144/68; PULSE 76; RESP 19; TEMP 97.4; O2SAT 97
[2017-01-13] MEDS: SODIUM CHLOR 0.9% 1000 ML INJ 1,000 ML IV SCH ×3 (11:53→21:52)
--- NOTE | 2017-01-13 15:38 | PD.ID.CON ---
History of Present Illness Consult Requested By Primary Care Physician Non-Staff Diagnoses: History of Present Illness is an 81 y/o CM of Citizen Of [place] Descent, from [place] originally. provided most of the history. 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 Patient was discharged to a rehabilitation facility and after his stay there he went home and noted that he had pressure areas that became ulcerated and infected. He returned to the hospital December 09 for sepsis and infection of both heels. At that time he was treated with IV antibiotics, was evaluated by vascular surgery and determined that the cause of the ulcerations was not due to vascular issues but more from constant pressure while he was at the rehabilitation facility. Patient had period of dehydration at the nursing facility and had a midline in place per . He was eventually discharged home with home health care (wound care). The wound care nurse did not like the way looked and smelled so patient was referred to wound care at [facility]. His pressure ulcers were being measured and decreasing in size. Most recently he developed gout to the right MTP joint. He went to see Dr. John who noted an ulcerated area and did some debridement approximately a week ago. He was started on allopurinol. Yesterday, he started running a fever up to 102.6 with heart rate of 119 and blood pressure 134/60. His decided to bring him to the hospital for evaluation. Patient indicates that the right foot is tender in that the wound appears worse than before. In the emergency room, patient was evaluated was noted with temperature 103.1, heart rate 130, blood pressure 110/52 and sats 96% on room air. Laboratory workup was significant for WBC of 13.8, hemoglobin 11.7 and hematocrit 34.6. Sedimentation rate was 56. Patient does have underlying renal insufficiency and on this admission his creatinine was increased to 1.93, BUN 23. Lactic acid was 1.7. C-reactive protein was 182. X-ray of the foot was completed that show soft tissue swelling and lucencies of the first distal metatarsal bone and possibility of osteomyelitis. Chest x-ray did not reveal any acute findings. Cultures were obtained, patient was started on empiric antibiotics. Initial blood cultures are showing gram-positive cocci. Wound culture is positive for staph aureus. Patient is admitted for further evaluation and treatment. ID is consulted for MSSA bacteremia in setting of foot infection. Past Family Social History Allergies: Coded Allergies: No Known Allergies (Unverified , 01/07/17) Physical Exam Vital Signs Vital Signs Date Time Temp Pulse Resp B/P Pulse Ox O2 Delivery O2 Flow Rate FiO2 01/13/17 11:45 97.4 76 19 144/68 97 01/13/17 07:37 97.1 84 18 156/74 97 01/13/17 04:25 97.5 80 16 124/61 95 01/12/17 23:47 98.2 79 18 115/59 97 01/12/17 20:43 98.4 89 16 121/67 94 01/12/17 16:07 98.1 77 20 127/71 Physical Exam GENERAL: This is a well-nourished, well-developed patient, in no apparent distress. SKIN: No rashes, ecchymoses or lesions. Cool and dry. HEAD: Atraumatic. Normocephalic. No temporal or scalp tenderness. EYES: Pupils equal round and reactive. Extraocular motions intact. No scleral icterus. No injection or drainage. ENT: Nose without bleeding, purulent drainage or septal hematoma. Throat without erythema, tonsillar hypertrophy or exudate. Uvula midline. Airway patent. NECK: Trachea midline. No JVD or lymphadenopathy. Supple, nontender, no meningeal signs. CARDIOVASCULAR: Regular rate and rhythm without murmurs, gallops, or rubs. RESPIRATORY: Clear to auscultation. Breath sounds equal bilaterally. No wheezes , rales, or rhonchi. GASTROINTESTINAL: Abdomen soft, non-tender, nondistended. No hepato-splenomegaly , or palpable masses. No guarding. MUSCULOSKELETAL: Extremities without clubbing, cyanosis, or edema. No joint tenderness, effusion, or edema noted. No calf tenderness. Negative Homans sign bilaterally. NEUROLOGICAL: Awake and alert. Cranial nerves II through XII intact. Motor and sensory grossly within normal limits. Five out of 5 muscle strength in all muscle groups. Normal speech. Laboratory Date/Time Procedure Status Source Growth 01/10/17 07:16 Aerobic Blood Culture - Preliminary Resulted Blood Peripheral NO GROWTH IN 3 DAYS 01/10/17 07:16 Anaerobic Blood Culture - Preliminary Resulted Blood Peripheral NO GROWTH IN 3 DAYS Result Diagram: 01/10/17 0610 01/12/17 0848 Assessment and Plan Assessment and Plan Sepsis present on admission. MSSA bacteremia present on admission: likely secondary to foot infection. MSSA in wound. Prior MSSA, Enterobacter cloacae infection in 12/2016. First metatarsal of right foot with ulceration and cellulitis. MRI normal no osteomyelitis. Gout. H/o surgical debridement of all pressure ulcers and opening created on right great toe. HTN Acute metabolic encephalopathy: infection, sepsis. Congenital single kidney per history. Recs: Repeat blood cultures x 2. DC Zosyn IV Start Ancef IV for possible MSSA bacteremia and MSSA foot infection Continue Vanco IV pending final cultures. Target 15-20. Follow cultures Follow clinically. Gout Mment per primary. Consider diet consult for low uric acid diet. D.w Dr.Laura Zuñiga: she does not recommend surgery in setting of acute gout. Dressing changes as per instructions as below: 1. Right great toe ulcer : wet to dry dressings 2. Rest of the pressure ulcers: Santyl for local application. Wound care consult on board as well. Daksha Gaitan MD Jan 13, 2017 15:38
[2017-01-13 15:40] VITALS: BP 143/69; PULSE 87; RESP 19; TEMP 97.7; O2SAT 95
--- NOTE | 2017-01-13 15:46 | HHI.FF ---
cc: Sally Cade MD Infusion Therapy Location of Infusion Therapy: Home [facility] IV Infusion Order Patient Information Appointment Date: Jan 13, 2017 Patient Weight 72 kg Diagnosis: Diagnosis MSSA infected ulcer of foot. Gouty arthritis and ulcer. Coded Allergies: No Known Allergies (Unverified , 01/07/17) Administer Medication Cefazolin 2 grams IV q 8 hours Start Treatment: Jan 13, 2017 Stop Treatment: Jan 22, 2017 Additional Information Venous access: Other (Midline if possible or else PICC line. Ok to give IV push over 5 mins.) Additional Instructions [x] Peripheral flush and dressing changes per protocol [x] Implanted port and central millinery teacher: * Implanted port: 10 ml Normal Saline followed by 5 ml Heparin 100 units/ml Heparin flush after each use and monthly to maintain. [] May leave port accessed during therapy. [] May leave peripheral site accessed for duration of therapy. [x] If patient has SOB or respiratory distress, check oxygen saturation. If less than 90% or clinical signs of respiratory distress, administer oxygen at 2 L/min. via nasal cannula and notify physician. [x] Anaphylaxis/Reaction orders: * Stop infusion. * Keep IV line open with saline flush. * Notify physician. * Monitor vital signs every 15 minutes until symptoms resolve. * Check Oxygen saturation; Oxygen at 2 L/min. via nasal cannula if less than 90% or clinical signs of respiratory distress. * Administer diphenhydramine (Benadryl) 25 mg IV STAT, (unless patient has received as pre-med). May repeat once, if necessary. * Solu-Cortef 250 mg IVP over 30-60 seconds, use 100 mg vials for each dissolution. * Epinephrine (1mg/1 ml) 0.3 mg subcutaneously or IVP now with any signs of respiratory distress. * Check with physician for new additional pre-med orders if patient is re- challenged or re-treated. [x] May remove PICC line when treatment complete, after confirming with Physician. [x] If the patient is admitted to the hospital, the ED, or transferred via [facility] , complete transfer form including medication reconciliation order sheet. Laboratory Tests Weekly Labs: CBC w/diff, Creatinine, LFT's (Hepatic function test) Additional Information Please draw weekly labs, fax labs to Dr.Reba Cade and call with abnormals, change in clinical condition or problems to: Dr.Reba Cade or or Covering ID Physician Follow up appt: Patient to schedule follow up appt with Dr.Reba Cade within ..... weeks post discharge. Follow up with PCP Follow up with other MDs as planned. Counseling: Counseled about medication side effects Counseled about PICC line care and hand hygiene. Daksha Gaitan MD Jan 13, 2017 15:46
[2017-01-13] MEDS ORDERED: EPIN1INJ21 SQ (15:47)
[2017-01-13] MEDS ORDERED: EPIN1INJ21 IV PUSH (15:47)
[2017-01-13] MEDS ORDERED: CEFA2SOL IV (15:47)
[2017-01-13] MEDS ORDERED: SOLU250I IV PUSH (15:47)
--- NOTE | 2017-01-13 15:51 | HHI.IDPN ---
Subjective Subjective Remarks is an 81 y.o CM with PMHx of HTN, Gout on allopurinol, osteoarthritis , s/p left knee replacement on 11/16/16. MSSA bacteremia and MSSA cellulitis, infected gouty ulcer. Overnight events reviewed. No fever No rash No diarrhea Tolerating meds. Eager to be discharged. Antibiotics Ancef IV Lines Line sites with no e.o infection Past Medical History reviewed Allergies: Coded Allergies: No Known Allergies (Unverified , 01/07/17) Objective . Vital Signs Date Time Temp Pulse Resp B/P Pulse Ox O2 Delivery O2 Flow Rate FiO2 01/13/17 11:45 97.4 76 19 144/68 97 01/13/17 07:37 97.1 84 18 156/74 97 01/13/17 04:25 97.5 80 16 124/61 95 01/12/17 23:47 98.2 79 18 115/59 97 01/12/17 20:43 98.4 89 16 121/67 94 01/12/17 16:07 98.1 77 20 127/71 01/12/17 01/12/17 01/13/17 15:00 23:00 07:00 Intake Total 929 ml 720 ml Output Total 300 ml 650 ml Balance 929 ml 420 ml -650 ml Intake Oral 929 ml 720 ml Output Urine Total 300 ml 650 ml # Bowel Movements 0 1 . Laboratory Tests Test 01/12/17 08:48 Sodium Level 142 MEQ/L Potassium Level 3.6 MEQ/L Chloride Level 109 MEQ/L Carbon Dioxide Level 25.3 MEQ/L Anion Gap 8 MEQ/L Blood Urea Nitrogen 8 MG/DL Creatinine 1.17 MG/DL Estimat Glomerular Filtration 60 ML/MIN Rate Random Glucose 85 MG/DL Calcium Level 8.7 MG/DL Imaging Last Impressions Foot MRI 01/08/17 0000 Signed Impressions: Service Date/Time: Sunday, January 08, 2017 18:11 - CONCLUSION: Soft tissue mass surrounding the first metatarsal head region. This is associated with erosions of the first metatarsal head. Minimal increased signal is seen within the marrow space. This appearance is most suggestive of a periarticular abnormality such as gout. There appear to be similar changes at the second metatarsal head. There also appear to be some erosions in the midfoot. This should be correlated clinically. Darion Bass MD Chest X-Ray 01/07/171952 Signed Impressions: Service Date/Time: January 20:04 - CONCLUSION: No acute cardiopulmonary disease. Lucas Russ MD Foot X-Ray 01/07/17 0000 Signed Impressions: Service Date/Time: , January 07, 2017 20:07 - CONCLUSION: Soft tissue swelling and lucencies of the first distal metatarsal bone and possibility of osteomyelitis is not excluded. Lucas Russ MD Physical Exam GENERAL: This is a well-nourished, well-developed patient, in no apparent distress. SKIN: No rashes, ecchymoses or lesions. Cool and dry. HEAD: Atraumatic. Normocephalic. No temporal or scalp tenderness. EYES: Pupils equal round and reactive. Extraocular motions intact. No scleral icterus. No injection or drainage. ENT: Nose without bleeding, purulent drainage or septal hematoma. Throat without erythema, tonsillar hypertrophy or exudate. Uvula midline. Airway patent. NECK: Trachea midline. No JVD or lymphadenopathy. Supple, nontender, no meningeal signs. CARDIOVASCULAR: RRR RESPIRATORY: Clear to auscultation. Breath sounds equal bilaterally. GASTROINTESTINAL: Abdomen soft, non-tender, nondistended. MUSCULOSKELETAL: Bilateral heel ulcers present on admission with unhealthy tissue and surrounding erythema. On medial aspect of the great toe on Right side was a large ulcer with white yellow discharge. Some white stuff looked like gouty crystals that were gritty to touch. Surrounding erythema and swelling noted. Left knee with surgical site with no evidence of infection. Overall feet bilaterally slightly better today. NEUROLOGICAL: Awake and alert. Grossly non focal. Psych: cooperative IV line sites with no e.o infection. Assessment & Plan Remarks Sepsis present on admission. MSSA bacteremia present on admission: likely secondary to foot infection. MSSA in wound. Prior MSSA, Enterobacter cloacae infection in 12/2016. First metatarsal of right foot with ulceration and cellulitis. MRI normal no osteomyelitis. Gout. H/o surgical debridement of all pressure ulcers and opening created on right great toe. HTN Acute metabolic encephalopathy: infection, sepsis. Congenital single kidney per history. Recs: Repeat blood cultures negative at 3 days. PICC line consult. Continue Ancef IV for possible MSSA bacteremia and MSSA foot infection. Post hospital infusion orders completed. Philip Case Management. Philip Hawk, patient and family in room. Will sign off please call back if any change in clinical condition or questions. Daksha Gaitan MD Jan 13, 2017 15:51
[2017-01-13 20:45] VITALS: BP 138/64; PULSE 68; RESP 17; TEMP 98.4; O2SAT 95
[2017-01-14] VITALS: BP 129/65; PULSE 64; RESP 18; TEMP 98.8; O2SAT 96
[2017-01-14] MEDS: ceFAZolin 2 GM PREMIX 50 ML IV SCH ×2 (00:25→08:36)
[2017-01-14 04:00] VITALS: BP 125/60; PULSE 66; RESP 17; TEMP 97.9; O2SAT 97
[2017-01-14] MEDS: SODIUM CHLOR 0.9% 1000 ML INJ 1,000 ML IV SCH (06:00)
[2017-01-14 07:51] VITALS: BP 131/60; PULSE 77; RESP 18; TEMP 97.4; O2SAT 95
[2017-01-14] MEDS: SODIUM CHLORIDE 0.9% FLUSH 10 ML FLUSH IV FLUSH SCH (08:37)
[2017-01-14] MEDS: LACTOBACILLUS ACIDOPHILUS TAB PO SCH (08:37)
[2017-01-14] MEDS: ALLOPURINOL 100 MG TAB PO SCH (08:37)
[2017-01-14] MEDS: COLCHICINE 0.6 MG TAB PO SCH (08:38)
[2017-01-14] MEDS: CHOLECALCIFEROL (VIT D3) 1000 UNIT TAB PO SCH (08:38)
[2017-01-14] MEDS: HEPARIN SODIUM - SQ 10,000 UNITS/ML VIAL SQ SCH (08:39)
[2017-01-14] MEDS: METOPROLOL TARTRATE 25 MG TAB PO SCH (08:39)
[2017-01-14] MEDS: COLLAGENASE OINT 30 GM TUBE TOPICAL SCH (08:40)
[2017-01-14] MEDS ORDERED: COLC1TAB15 PO (10:30)
--- NOTE | 2017-01-14 10:31 | HHI.PR ---
Subjective Subjective Remarks No fever No chest pain no SOB eating okay at [facility], waiting for discharge Review of Systems Constitutional Constitutional Remarks 12 point ROS completed, negative except as noted above Vitals/Results Intake & Output 01/13/17 01/13/17 01/14/17 15:00 23:00 07:00 Intake Total 850 ml 400 ml Balance 850 ml 400 ml Intake Oral 850 ml 400 ml # Voids 1 1 # Bowel Movements 2 1 Vital Signs Vital Signs Date Time Temp Pulse Resp B/P Pulse Ox O2 Delivery O2 Flow Rate FiO2 01/14/17 07:51 97.4 77 18 131/60 95 01/14/17 04:00 97.9 66 17 125/60 97 01/14/17 00:00 98.8 64 18 129/65 96 01/13/17 20:45 98.4 68 17 138/64 95 01/13/17 15:40 97.7 87 19 143/69 95 01/13/17 11:45 97.4 76 19 144/68 97 CBC/BMP: 01/10/17 0610 01/12/17 0848 Physical Exam General General Appearance: Well Developed, Well Nourished, No Acute Distress, Comfortable Eyes Eye Exam: Pupils Equal, Pupils Reactive Ears & Nose Ears & Nose Exam: Nasal Mucosa [place] Throat Throat Exam: Oral Mucosa [place] & Moist Neck Neck Exam: Neck Supple, Trachea Midline Pulmonary Resp Exam: Clear Bilaterally, Breath Sounds Equal, No Distress Cardiology CV Exam: Regular, Good Perfusion Gastrointestinal/Abdomen GI Exam: Soft, Non-Tender, Bowel Sounds Present, Non-Distended Musculoskeletal MS Exam: Joints Intact Integumentary Skin Exam: Ulcer(s) Skin Remarks Left knee with scar from previous surgery. Right olecranon bursitis, nontender , no erythema. Bilateral healing pressure ulcers noted to both heels. Has a wound to the right MTP joint, dressing in place. Extremeties Extremities Exam: Pedal Pulses Palpable, Trace Edema Neurologic Neuro Exam: Alert, Awake, Oriented, Speech Clear, Moving All Extremities, Roll Machine Operator Equal, No Focal Deficits Psychiatric Psych Exam: Appropriate Responses VTE Prophylaxis VTE Prophylaxis Device: SCDs VTE Prophylaxis Meds: Heparin Assessment/Plan Problem List: (1) Sepsis (2) MSSA (methicillin susceptible Staphylococcus aureus) infection (3) Gout (4) Bacteremia due to Gram-positive bacteria (5) right MTP joint wound (6) Pressure ulcer of both heels, stage 2 (7) Acute kidney injury (8) Hypertension Assessment/Plan 81-year-old male status post left total knee replacement home went to rehabilitation and subsequently developed pressure ulcers to both heels. Most recently he developed gout to right MTP joint and had an ulcerated area that required debridement at wound care center. Patient presented to the emergency room with increased drainage, right foot tenderness, fever. Patient admitted with sepsis, right foot infection, possible osteomyelitis per x-ray findings. -Right foot MRI done, no evidence of osteomyelitis. Changes due to gout, however at risk for osteo -Blood cultures and wound cultures positive for MSSA. Last set of blood cultures negative -Continue with empiric antibiotics, on Ancef -Patient has PICC line in place -Appreciate ID input, recommendations noted -Podiatry evaluated patient, added colchicine, continue with allopurinol. -Continue with wound care orders -Follow up with Dr. John as outpatient for continued wound care Acute on chronic renal injury -improved, off IVF Avoid nephrotoxic agents Osteoarthritis, status post left knee replacement. Patient states that he's been using mostly wheelchair and is somewhat debilitated due to recent complications with sepsis and pressure ulcers. Consult physical therapy for evaluation and treatment Bilateral heel ulcers, healing -appreciate podiatry input Keep heels off bed Recent right MTP joint gout Continue with allopurinol Hypertension Continue with Lopressor 25 mg by mouth every 12 Heparin for DVT prophylaxis Case management for discharge planning, home health care for IV antibiotics has been set up Follow up with Dr. John Follow-up with primary care physician Diet heart healthy Activity as tolerated Wound care per Dr. John's orders D/W RN D/W pt and D/W Dr. Yusuf D/W CM This patient was seen by myself and Dr. Yusuf, this note is written on his behalf Problem Qualifiers (1) Sepsis: Qualified Code: A41.9 - Sepsis, due to unspecified organism (2) Gout: Qualified Code: M1A.0710 - Chronic gout of right foot, unspecified cause (3) Hypertension: Qualified Code: I10 - Essential hypertension Blanche Cooper Jan 14, 2017 10:31
[2017-01-14] MEDS ORDERED: ALLO100 PO (10:33)
--- NOTE | 2017-01-14 10:33 | HHI.DS ---
Discharge Summary Admission Date Jan 07, 2017 at 21:51 Discharge Date: Jan 14, 2017 Admitting Diagnosis sepsis, right foot cellulitis/ulceration (1) Sepsis (2) Foot infection (3) Status post total left knee replacement (4) Pressure ulcer of both heels, stage 2 (5) Acute kidney injury (6) right MTP joint wound (7) Dementia (8) Hypertension (9) MSSA (methicillin susceptible Staphylococcus aureus) infection (10) Bacteremia due to Gram-positive bacteria CBC/BMP: 01/10/17 0610 01/12/17 0848 Significant Findings Laboratory Tests Test 01/12/17 08:48 Chloride Level 109 MEQ/L (98-107) Estimat Glomerular Filtration 60 ML/MIN (>89) Rate Imaging Last Impressions Foot MRI 01/08/17 0000 Signed Impressions: Service Date/Time: Sunday, January 08, 2017 18:11 - CONCLUSION: Soft tissue mass surrounding the first metatarsal head region. This is associated with erosions of the first metatarsal head. Minimal increased signal is seen within the marrow space. This appearance is most suggestive of a periarticular abnormality such as gout. There appear to be similar changes at the second metatarsal head. There also appear to be some erosions in the midfoot. This should be correlated clinically. Darion Bass MD Chest X-Ray 01/07/171952 Signed Impressions: Service Date/Time: January 20:04 - CONCLUSION: No acute cardiopulmonary disease. Lucas Russ MD Foot X-Ray 01/07/17 0000 Signed Impressions: Service Date/Time: January 20:07 - CONCLUSION: Soft tissue swelling and lucencies of the first distal metatarsal bone and possibility of osteomyelitis is not excluded. Lucas Russ MD Hospital Course This is an 81-year-old elderly male who presented to the emergency room for evaluation of fever. Patient has a past medical history of osteoarthritis, had a left knee replacement 11/16/2016. Patient was discharged to a rehabilitation facility and after his stay there he went home and noted that he had pressure areas that became ulcerated and infected. He returned to the hospital December 09 for sepsis and infection of both heels. At that time he was treated with IV antibiotics, was evaluated by vascular surgery and determined that the cause of the ulcerations was not due to vascular issues but more from constant pressure while he was at the rehabilitation facility. He was eventually discharged home with home health care. According to the patient, he has been following up with Dr. John and has been receiving wound care at home. Indicates that his heel ulcers are actually healing. Most recently he developed gout to the right MTP joint. He went to see Dr. John who noted an ulcerated area and did some debridement approximately a week ago. He was started on allopurinol. Yesterday , he started running a fever up to 1-2.6 with heart rate of 119 and blood pressure 134/60. His decided to bring him to the hospital for evaluation. Patient indicated that the right foot is tender in that the wound appears worse than before. In the emergency room, patient was evaluated was noted with temperature 103.1, heart rate 1:30, blood pressure 110/52 and sats 96% on room air. Laboratory workup was significant for WBC of 13.8, hemoglobin 11.7 and hematocrit 34.6. Sedimentation rate was 56. Patient does have underlying renal insufficiency and on this admission his creatinine was increased to 1.93, BUN 23. Lactic acid was 1.7. C-reactive protein was 182. X-ray of the foot was completed that show soft tissue swelling and lucencies of the first distal metatarsal bone and possibility of osteomyelitis. Chest x-ray did not reveal any acute findings. Cultures were obtained, patient was started on empiric antibiotics. Initial blood cultures are showing gram-positive cocci. Wound culture was positive for staph aureus. Patient was admitted for further evaluation and treatment for: (1) Sepsis (2) MSSA (methicillin susceptible Staphylococcus aureus) infection (3) Gout (4) Bacteremia due to Gram-positive bacteria (5) right MTP joint wound (6) Pressure ulcer of both heels, stage 2 (7) Acute kidney injury (8) Hypertension During the course of the hospitalization, the following took place: 81-year-old male status post left total knee replacement home went to rehabilitation and subsequently developed pressure ulcers to both heels. Most recently he developed gout to right MTP joint and had an ulcerated area that required debridement at wound care center. Patient presented to the emergency room with increased drainage, right foot tenderness, fever. Patient admitted with sepsis, right foot infection, possible osteomyelitis per x-ray findings. -Patient put on IV fluids, IV antibiotics, cultures were followed -Right foot MRI done, no evidence of osteomyelitis. Changes due to gout, however at risk for osteo -ID and podiatry consult -Blood cultures and wound cultures positive for MSSA. Last set of blood cultures negative -Continued with empiric antibiotics, on Ancef. ID recommendations was to continue antibiotics. PICC line was ordered -Podiatry evaluated patient, added colchicine, continued with allopurinol. -Continue with wound care orders, Santyl ordered for both heels -Follow up with Dr. John as outpatient for continued wound care Acute on chronic renal injury -Patient was put on IV fluids, BMP was monitored Avoided nephrotoxic agents Osteoarthritis, status post left knee replacement. Patient states that he's been using mostly wheelchair and is somewhat debilitated due to recent complications with sepsis and pressure ulcers. Consulted physical therapy for evaluation and treatment. Patient was assisted out of bed and ambulated Bilateral heel ulcers, healing well -appreciated podiatry input Keep heels off bed -wound care orders per podiatry Recent right MTP joint gout Continue with allopurinol and colchicine added -Uric acid was monitored Hypertension Continued with Lopressor 25 mg by mouth every 12 Pt's condition improved, WBC trending down, no fever. ID recommendations were noted Cleared for dc by consultants Heparin for DVT prophylaxis Case management for discharge planning, home health care for IV antibiotics was set up Pt. stable for discharge home with [facility] Follow up with Dr. John, Dr. Cade Follow-up with primary care physician Diet heart healthy Activity as tolerated Wound care per Dr. John's orders Pt Condition on Discharge: Stable Discharge Disposition: Disch w/ Home Health Serv Discharge Instructions DIET: Follow Instructions for: Heart Healthy Diet Activities you can perform: Weight Bearing as Noe Follow up Referrals: Appointment for Follow Up @ [facility] with MD Dr.Reba Rayo [facility] with Sree John MD New Medications: Cefazolin Inj (Cefazolin Inj) 2 Gm/50 Ml Bagp 2 GM IV Q8H MSSA cellulitis,bacteremia Days 8 Ref 0 BAG Epinephrine Inj (Epinephrine Inj) 1 Mg/Ml Inj 0.3 MG IV PUSH ONCE PRN ALLERGIC REACTION #1 VIAL Epinephrine Inj (Epinephrine Inj) 1 Mg/Ml Inj 0.3 MG SQ ONCE Give with any signs of respiratory distress. PRN ALLERGIC REACTION #1 VIAL Hydrocortisone Inj (Solu-Cortef Inj) 250 Mg Inj 250 MG IV PUSH ONCE Give over 30-60 seconds. PRN ALLERGIC REACTION #1 Ref 0 VIAL Allopurinol (Zyloprim) 100 Mg Tab 100 MG PO BID GOUT #60 Ref 1 TAB Colchicine (Colchicine) 0.6 Mg Tab 0.6 MG PO BID GOUT #60 Ref 0 TAB Continued Medications: Cholecalciferol (Vitamin D-3) 2,000 Unit Tab 2000 UNITS PO DAILY Coenzyme Q10 (Ubidecarenone) (Co Q-10) Unknown Strength Cap 1-2 CAP PO DAILY Metoprolol Tartrate (Metoprolol Tartrate) 25 Mg Tab 25 MG PO Q12HR htn #60 TAB Multiple Minerals W/ Vitamins (Bone Density Builder) 1 Tab Tab 1 TAB PO DAILY [place]-3 Fatty Acids (Fish Oil) 1,000 Mg Cap 1000 MG PO DAILY Probiotic Product (Probiotic) 1 Tab Tab 1 TAB PO BID Discontinued Medications: Allopurinol (Allopurinol) 300 Mg Tab 300 MG PO DAILY Gout #30 Ref 0 TAB Blanche Cooper [facility] Jan 14, 2017 10:33
== END 2017-01-14 12:28 | disposition home health service (06) | DRG 872 ==
LOC: NEPD 19:15 → NEDA 21:51 → N05A 01-08 00:50
PROVIDERS: ADMIT Internal Medicine; ATTEND Internal Medicine
PROC: 05H633Z Insertion of Infusion Device into Left Subclavian Vein, Percutaneous Approach (ICD-10-PCS; principal; 2017-01-13)
PROC: B547ZZA Ultrasonography of Left Subclavian Vein, Guidance (ICD-10-PCS; 2017-01-13)
DX: A41.01 Sepsis due to Methicillin susceptible Staphylococcus aureus (principal); N17.9 Acute kidney failure, unspecified; Q60.0 Renal agenesis, unilateral; L03.115 Cellulitis of right lower limb; L89.622 Pressure ulcer of left heel, stage 2; L89.612 Pressure ulcer of right heel, stage 2; M10.9 Gout, unspecified; L97.519 Non-pressure chronic ulcer of other part of right foot with unspecified severity; Z96.652 Presence of left artificial knee joint; I12.9 Hypertensive chronic kidney disease with stage 1 through stage 4 chronic kidney disease, or unspecified chronic kidney disease; N18.9 Chronic kidney disease, unspecified; Z85.828 Personal history of other malignant neoplasm of skin; Z87.891 Personal history of nicotine dependence
CPT/HCPCS: 36569; 71010; 73630; 73720; 76937; 80048; 80053; 81001; 83605; 83735; 84550; 85025; 85610; 85652; 85730; 86140; 86403; 87040; 87070; 87147; 87186; 87205; 87804; 93005; 96365; 96367; 96375; A9577; J0690; J1644; J2543; J3370; J7030; J7050; L3260

== ENCOUNTER 2017-08-06 10:49 | Emergency (ER) | payer MEDICARE ==
[~2017-08-06] VITALS: Ht 180.3 cm; Wt 68.0 kg
[~2017-08-06 10:49] MED LIST changes: +ALLO100 PO; +CEFA2SOL IV; -CEPH500C PO; +COLC1TAB15 PO; -DIOV80TA4 PO; -DOXY100C PO; +EPIN1INJ21 IV PUSH; +EPIN1INJ21 SQ; -MULT1TAB85 PO; -PIPERACIL-TAZO 3.375 GM PREMIX 50 ML IV SCH; +SOLU250I IV PUSH; -ULTR50TA5 PO
[2017-08-06 10:51] VITALS: BP 161/76; PULSE 78; RESP 18; TEMP 97.8; O2SAT 96
[2017-08-06] MEDS ORDERED: ALLO300T2 PO (11:11)
[2017-08-06] MEDS ORDERED: METO25TA3 PO (11:11)
--- NOTE | 2017-08-06 11:22 | PD ---
HPI Chief Complaint: Musculoskeletal Complaint Time Seen by Provider: 11:03 Travel History International Travel<30 days: No Contact w/Intl Traveler<30days: No Traveled to known affect area: No History of Present Illness HPI 81 year old male presents to the emergency department for evaluation of left hand and left elbow pain that started over the weekend, approximately 6 days ago. Patient reports history of foot cellulitis in December and January this year. He was placed on multiple antibiotics. Afterwards, he developed gout, first in his right foot, then in his right hand 2. The last episode was 2 weeks ago. He was placed on a steroid dose pack and symptoms resolved. He states that the current pain in his left elbow and left hand started approximately 6 days ago. He states that he felt hand surgeon, Dr. Palomares, on Wednesday, but symptoms were not as significant as they are now. He states that he was told to follow orthopedic surgeon for left elbow pain. He denies any injury to the left arm. He denies any open wounds or cuts. He has no fevers or chills. No chest pain shortness breath. No abdominal pain. No nausea, vomiting, diarrhea. His medications are metoprolol for hypertension and allopurinol for gout. Patient states he has had bursitis drained to the left elbow in the past. He denies any other medical complaints at this time. He reports pain to the left posterior elbow, left dorsal hand only. No forearm or upper arm pain. Patient reports slightly limited range of motion due to pain. 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) Cardiovascular Problems: Yes Chemotherapy: No Diabetes: No Diminished Hearing: No Endocrine: No Gout: Yes Genitourinary: No Hepatitis: No Hiatal Hernia: No Hypertension: Yes Immune Disorder: No Musculoskeletal: Yes (arthritis,back pain L3 and neck pain) Neurologic: No Psychiatric: No Reproductive: No Respiratory: No Integumentary: Yes Migraines: No Seizures: No Thyroid Disease: No Tetanus Vaccination: > 5 Years Influenza Vaccination: No Past Surgical History Abdominal Surgery: Yes (appy) AICD: No Appendectomy: Yes Eye Surgery: Yes (cataract surgery) Joint Replacement: Yes (left knee) Oral Surgery: Yes (lesion on vocal cord removed) Pacemaker: No Tonsillectomy: Yes Other Surgery: Yes Social History Alcohol Use: Yes (ocassionally) Tobacco Use: No (quit 45 years) Substance Use: No Allergies-Medications (Allergen,Severity, Reaction): Coded Allergies: No Known Allergies (Verified Allergy, Unknown, 08/06/17) Reported Meds & Prescriptions Reported Meds & Active Scripts Active Reported Allopurinol 300 Mg Tab 300 Mg PO DAILY Metoprolol Tartrate 25 Mg Tab 25 Mg PO BID Review of Systems Except as stated in HPI: all other systems reviewed are Neg Physical Exam Narrative GENERAL: Well-nourished, well-developed elderly male patient, afebrile. SKIN: Focused skin assessment warm/dry. Patient has erythema noted over the right first MCP joint. HEAD: Normocephalic. Atraumatic. EYES: No scleral icterus. No injection or drainage. NECK: Supple, trachea midline. No JVD or lymphadenopathy. CARDIOVASCULAR: Regular rate and rhythm without murmurs, gallops, or rubs. Left radial pulses 2+. RESPIRATORY: Breath sounds equal bilaterally. No accessory muscle use. Lungs sounds are clear to auscultation. GASTROINTESTINAL: Abdomen soft, non-tender, nondistended. MUSCULOSKELETAL: No cyanosis, or edema. Olecranon bursitis noted to left elbow. No erythema or warmth over left elbow. He has tenderness over the posterior left elbow to palpation. He also has tenderness over the left first MCP joint. He has slightly limited flexion of the first digit of the left hand. He has flexion of the left elbow to approximately 90, but then stops due to pain. BACK: Nontender without obvious deformity. No CVA tenderness. Data Data Last Documented VS Vital Signs Date Time Temp Pulse Resp B/P (MAP) Pulse Ox O2 Delivery O2 Flow Rate FiO2 08/06/17 11:02 17 08/06/17 10:51 97.8 78 161/76 (104) 96 Orders Orders Elbow, Complete (4 Vws) (08/06/17 ) Hand, Complete (Znl3acy) (08/06/17 ) Iv Access Insert/Monitor (08/06/17 11:13) Complete Blood Count With Diff (08/06/17 11:13) Basic Metabolic Panel (Bmp) (08/06/17 11:13) Uric Acid (08/06/17 11:13) Ed Discharge Order (08/06/17 13:00) Labs Laboratory Tests Test 08/06/17 11:20 White Blood Count 8.4 TH/MM3 Red Blood Count 4.49 MIL/MM3 Hemoglobin 13.8 GM/DL Hematocrit 41.8 % Mean Corpuscular Volume 93.0 FL Mean Corpuscular Hemoglobin 30.8 PG Mean Corpuscular Hemoglobin Concent 33.1 % Red Cell Distribution Width 14.9 % Platelet Count 221 TH/MM3 Mean Platelet Volume 7.2 FL Neutrophils (%) (Auto) 75.5 % Lymphocytes (%) (Auto) 13.2 % Monocytes (%) (Auto) 8.5 % Eosinophils (%) (Auto) 1.9 % Basophils (%) (Auto) 0.9 % Neutrophils # (Auto) 6.4 TH/MM3 Lymphocytes # (Auto) 1.1 TH/MM3 Monocytes # (Auto) 0.7 TH/MM3 Eosinophils # (Auto) 0.2 TH/MM3 Basophils # (Auto) 0.1 TH/MM3 CBC Comment DIFF FINAL Differential Comment Blood Urea Nitrogen 22 MG/DL Creatinine 1.41 MG/DL Random Glucose 114 MG/DL Calcium Level 9.1 MG/DL Uric Acid 4.5 MG/DL Sodium Level 141 MEQ/L Potassium Level 4.3 MEQ/L Chloride Level 103 MEQ/L Carbon Dioxide Level 30.3 MEQ/L Anion Gap 8 MEQ/L Estimat Glomerular Filtration Rate 48 ML/MIN [facility] Medical Decision Making Medical Screen Exam Complete: Yes Emergency Medical Condition: Yes Medical Record Reviewed: Yes Interpretation(s) Last Impressions Hand X-Ray 08/06/17 0000 Signed Impressions: Service Date/Time: Sunday, August 06, 2017 11:36 - CONCLUSION: Degenerative changes, negative for fracture or dislocation. Tam Mendiola MD FACR Elbow X-Ray 08/06/17 0000 Signed Impressions: Service Date/Time: Sunday, August 06, 2017 11:35 - CONCLUSION: Negative Tam Mendiola MD FACR Differential Diagnosis Gout versus cellulitis versus bony injury Narrative Course 81-year-old male presents to the emergency department for evaluation of left elbow and left hand pain that started approximately 6 days ago. He does have history of gout. Physical and symptoms are most consistent with gout. IV access established. CBC, BMP, uric acid are ordered and pending. X-ray of the left elbow and left hand are ordered and pending. CBC shows no acute abnormality. BMP shows BUN 22, creatinine 1.41, glucose 114. Uric acid is 4.5. X-ray of the left elbow is negative. X-ray of the left hand shows degenerative changes, negative for fracture or dislocation. I spoke to maya [place] with patient. He states he like patient to be discharged on a Medrol Dosepak. He will follow-up with the patient next week. He also like the patient to follow-up with orthopedist for elbow. The patient verbalizes agreement and understanding. My attending physician, Dr. Strong, saw patient as well and agrees with plan and disposition. The patient was discharged in stable condition with instructions, including return instructions and follow up instructions. Diagnosis Primary Impression: Gout Qualified Codes: M10.9 - Gout, unspecified Referrals: Mina Palomares MD call for appointment Elliott Yoo MD call for appointment Patient Instructions: General Instructions, Gout (ED) Additional Instructions: Take Medrol Dosepak as directed. [id number] Tylenol every 4 hours as needed for pain. Follow-up with Dr. Palomares next week Follow-up with orthopedist. Dr. Yoo is our orthopedist on-call. Ice for 20 minutes 4-5 times daily. Elevate. Return to the emergency department for any acute worsening of symptoms. Med/Other Pt SpecificInfo: Prescription(s) given Scripts Methylprednisolone Dosepak (Medrol Dosepak) 4 Mg Dspk 4 MG PO DIRECTED, #1 DSPK 0 Refills Per Pharmacist direction Prov: Yana Blancas 08/06/17 Disposition: 01 DISCHARGE HOME Condition: Stable Yana Blancas Aug 06, 2017 11:22
[2017-08-06 11:38] LABS: AUTOMATED NEUTROPHIL # 6.4 TH/MM3 (1.8-7.7); BASOPHIL # 0.1 TH/MM3 (0-0.2); BASOPHIL % 0.9 % (0.0-2.0); EOSINOPHIL # 0.2 TH/MM3 (0-0.4); EOSINOPHIL % 1.9 % (0.0-4.0); HEMATOCRIT 41.8 % (39.0-51.0); HEMO FLAGS DIFF FINAL; LYMPH % 13.2 % (9.0-44.0); LYMPHOCYTE # 1.1 TH/MM3 (1.0-4.8); MEAN CORPUSCULAR HEMOGLOBIN 30.8 PG (27.0-34.0); MEAN CORPUSCULAR HGB CONC 33.1 % (32.0-36.0); MONO % 8.5 % (0.0-8.0); NEUT % 75.5 % (16.0-70.0); PLATELET COUNT 221 TH/MM3 (150-450); RED BLOOD COUNT 4.49 MIL/MM3 (4.50-5.90); RED CELL DISTRIBUTION WIDTH 14.9 % (11.6-17.2); WHITE BLOOD COUNT 8.4 TH/MM3 (4.0-11.0)
[2017-08-06 11:56] LABS: BICARBONATE 30.3 MEQ/L (21.0-32.0); POTASSIUM 4.3 MEQ/L (3.5-5.1); URIC ACID 4.5 MG/DL (2.6-7.2)
--- NOTE | 2017-08-06 11:56 | RADRPT ---
EXAM DATE/TIME: 08/06/2017 11:35 [facility] COMPARISON: No previous studies available for comparison. INDICATIONS : No injury, pain, swelling, reddness, loss of motion. History of Gout. MEDICAL HISTORY : Gout SURGICAL HISTORY : Total knee replacement, left. Total knee replacement, right. ENCOUNTER: Initial ACUITY: 2 days PAIN SCORE: 10/10 LOCATION: Left elbow. FINDINGS: Multiple view examination of the left elbow demonstrates no soft tissue swelling, joint effusion, or fracture. The osseous structures are in normal alignment. Bony mineralization is normal. CONCLUSION: Negative Tam Mendiola MD FACR on August 06, 2017 at 11:54 Board Certified Radiologist. This report was verified electronically.
--- NOTE | 2017-08-06 11:57 | RADRPT ---
EXAM DATE/TIME: 08/06/2017 11:36 [facility] COMPARISON: No previous studies available for comparison. INDICATIONS : Pain with swelling and reddness lateral 5th metacarpal into lateral wrist. Loss of motion no known injury. MEDICAL HISTORY : Gout SURGICAL HISTORY : Total knee replacement, left. Total knee replacement, right. ENCOUNTER: Initial ACUITY: 2 days PAIN SCORE: 10/10 LOCATION: Left hand. TECH NOTE: [place] MR#[id number] :33 Exam date/desc:August 06, 2017HAND LEFT CO MPLETE ([id number]) FINDINGS: Degenerative changes first metacarpal phalangeal joint. Erosive changes second and third digits. Ne gative for fracture. CONCLUSION: Degenerative changes, negative for fracture or dislocation. Tam Mendiola MD FACR on August 06, 2017 at 11:54 Board Certified Radiologist. This report was verified electronically.
--- NOTE | 2017-08-06 12:59 | PD ---
Data Data Last Documented VS Vital Signs Date Time Temp Pulse Resp B/P (MAP) Pulse Ox O2 Delivery O2 Flow Rate FiO2 08/06/17 11:02 17 08/06/17 10:51 97.8 78 161/76 (104) 96 Orders Orders Elbow, Complete (4 Vws) (08/06/17 ) Hand, Complete ([id number]) (08/06/17 ) Iv Access Insert/Monitor (08/06/17 11:13) Complete Blood Count With Diff (08/06/17 11:13) Basic Metabolic Panel (Bmp) (08/06/17 11:13) Uric Acid (08/06/17 11:13) Ed Discharge Order (08/06/17 13:00) Labs Laboratory Tests Test 08/06/17 11:20 White Blood Count 8.4 TH/MM3 Red Blood Count 4.49 MIL/MM3 Hemoglobin 13.8 GM/DL Hematocrit 41.8 % Mean Corpuscular Volume 93.0 FL Mean Corpuscular Hemoglobin 30.8 PG Mean Corpuscular Hemoglobin Concent 33.1 % Red Cell Distribution Width 14.9 % Platelet Count 221 TH/MM3 Mean Platelet Volume 7.2 FL Neutrophils (%) (Auto) 75.5 % Lymphocytes (%) (Auto) 13.2 % Monocytes (%) (Auto) 8.5 % Eosinophils (%) (Auto) 1.9 % Basophils (%) (Auto) 0.9 % Neutrophils # (Auto) 6.4 TH/MM3 Lymphocytes # (Auto) 1.1 TH/MM3 Monocytes # (Auto) 0.7 TH/MM3 Eosinophils # (Auto) 0.2 TH/MM3 Basophils # (Auto) 0.1 TH/MM3 CBC Comment DIFF FINAL Differential Comment Blood Urea Nitrogen 22 MG/DL Creatinine 1.41 MG/DL Random Glucose 114 MG/DL Calcium Level 9.1 MG/DL Uric Acid 4.5 MG/DL Sodium Level 141 MEQ/L Potassium Level 4.3 MEQ/L Chloride Level 103 MEQ/L Carbon Dioxide Level 30.3 MEQ/L Anion Gap 8 MEQ/L Estimat Glomerular Filtration Rate 48 ML/MIN [facility] Medical Record Reviewed: Yes Supervised Visit with KHAI: Yes Narrative Course I, Dr. Strong, have reviewed the advance practice practitioner's documentation and am in agreement, met with the patient face to face, made the diagnosis, and the medical decision making was done by me. *My assessment and Findings: Reviewed with Yana Blancas. Case d/w Dr Palomares. Pt ok for discharge home. Referrals: Mina Palomares MD 2 days Med/Other Pt SpecificInfo: Prescription(s) given Scripts Methylprednisolone Dosepak (Medrol Dosepak) 4 Mg Dspk 4 MG PO DIRECTED, #1 DSPK 0 Refills Per Pharmacist direction Prov: Yana Blancas 08/06/17 Disposition: 01 DISCHARGE HOME Condition: Stable Fili Strong MD Aug 06, 2017 12:59
[2017-08-06] MEDS ORDERED: MEDR4PAK PO (13:03)
== END 2017-08-06 13:45 | disposition home or self-care (01) ==
LOC: NEPC 10:49
DX: M10.9 Gout, unspecified (principal); M19.90 Unspecified osteoarthritis, unspecified site; I10 Essential (primary) hypertension; Z79.899 Other long term (current) drug therapy
CPT/HCPCS: 73080; 73130; 80048; 84550; 85025; 99284

== ENCOUNTER 2017-10-06 10:42 | Emergency (ER) | payer MEDICARE ==
[~2017-10-06] VITALS: Ht 180.3 cm; Wt 72.0 kg
[~2017-10-06 10:42] MED LIST changes: -ALLO100 PO; +ALLO300T2 PO; -CEFA2SOL IV; -CHOL1TAB42 PO; -CO Q30CA PO; -COLC1TAB15 PO; -EPIN1INJ21 IV PUSH; -EPIN1INJ21 SQ; -FISH1000 PO; +MEDR4PAK PO; -MULT-7 PO; -PROB1TAB PO; -SOLU250I IV PUSH
[2017-10-06 10:43] VITALS: BP 180/74; PULSE 67; RESP 16; TEMP 97.8; O2SAT 97
[2017-10-06] MEDS ORDERED: AMOXICILLIN/CLAVULANATE K 875 MG TAB PO ONE (11:30)
[2017-10-06] MEDS ORDERED: TETANUS/DIPHTHERIA TOXOID ADULT 0.5 ML VIAL IM ONE (11:30)
--- NOTE | 2017-10-06 11:30 | PD ---
HPI Chief Complaint: Bite or Sting Time Seen by Provider: 11:26 Travel History International Travel<30 days: No Contact w/Intl Traveler<30days: No Traveled to known affect area: No History of Present Illness HPI 82-year-old otherwise healthy male presents to the emergency room for evaluation of dog bite to his right hand. Patient was bit by his own dog just prior to arrival. States the dog is deaf and overreacted to the patient reaching toward him. He bit him on the right hand. He reports significant bleeding at scene but bleeding has stopped on its own. Dog is up-to-date on rabies vaccination. Patient's last tetanus was 5-6 years ago. 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) Cardiovascular Problems: Yes Chemotherapy: No Diabetes: No Diminished Hearing: No Endocrine: No Gout: Yes Genitourinary: No Hepatitis: No Hiatal Hernia: No Hypertension: Yes Immune Disorder: No Musculoskeletal: Yes (arthritis,back pain L3 and neck pain) Neurologic: No Psychiatric: No Reproductive: No Respiratory: No Integumentary: Yes Migraines: No Seizures: No Thyroid Disease: No Tetanus Vaccination: < 5 Years Influenza Vaccination: No Past Surgical History Abdominal Surgery: Yes (appy) AICD: No Appendectomy: Yes Eye Surgery: Yes (cataract surgery) Joint Replacement: Yes (left knee) Oral Surgery: Yes (lesion on vocal cord removed) Pacemaker: No Tonsillectomy: Yes Other Surgery: Yes Social History Alcohol Use: Yes (ocassionally) Tobacco Use: No (quit 45 years) Substance Use: No Allergies-Medications (Allergen,Severity, Reaction): Coded Allergies: No Known Allergies (Verified Allergy, Unknown, 10/06/17) Reported Meds & Prescriptions Reported Meds & Active Scripts Active Augmentin (Amoxicillin-Clavulanate) 875-125 Mg Tab 1 Tab PO BID 10 Days Reported Allopurinol 300 Mg Tab 300 Mg PO DAILY Metoprolol Tartrate 25 Mg Tab 25 Mg PO BID Review of Systems Except as stated in HPI: all other systems reviewed are Neg Physical Exam Narrative GENERAL: Well-nourished, well-developed male in no acute distress. Afebrile. Ambulatory. SKIN: Focused skin assessment warm/dry. There is a large superficial skin tear to the right dorsal hand. Laceration measures about 4 cm in length. There is a broken, superficial vessel. No tendon injury. No foreign body. HEAD: Normocephalic. EYES: No scleral icterus. No injection or drainage. NECK: Supple, trachea midline. No JVD or lymphadenopathy. CARDIOVASCULAR: Regular rate and rhythm without murmurs, gallops, or rubs. RESPIRATORY: Breath sounds equal bilaterally. No accessory muscle use. MUSCULOSKELETAL: No cyanosis, or edema. Full range of motion of right hand. Data Data Last Documented VS Vital Signs Date Time Temp Pulse Resp B/P (MAP) Pulse Ox O2 Delivery O2 Flow Rate FiO2 10/06/17 10:43 97.8 67 16 180/74 (109) 97 Room Air Orders Orders Tetanus/Diphtheria Tox Adult (Tetanus/Di (10/06/17 11:30) Amoxicil-Clavulanate (Augmentin) (10/06/17 11:30) Ed Discharge Order (10/06/17 11:39) [facility] Medical Decision Making Medical Screen Exam Complete: Yes Emergency Medical Condition: Yes Medical Record Reviewed: Yes Differential Diagnosis Dog bite, laceration, contusion Narrative Course 82-year-old male presents to the emergency room for evaluation of a dog bite to his right hand that occurred just prior to arrival. Patient was bit by his own dog that is up-to-date on rabies. He was updated on tetanus and given first dose of Augmentin in the emergency room. Skin tear was thoroughly cleansed and irrigated with Betadine and saline. There is a deep aspect of the wound that was approximated using Steri-Strips because of location and because patient has very thin skin and sutures would likely rip his skin. He was provided with a prescription for Augmentin and wound care instructions and told to follow-up with PCP or return for worsening symptoms. He understands and agrees to plan. Diagnosis Primary Impression: Dog bite of hand without complication Qualified Codes: S61.451A - Open bite of right hand, initial encounter; W54.0XXA - Bitten by dog, initial encounter Referrals: Primary Care Physician Additional Instructions: Keep wound clean and dry. Wash daily with soap and water. Apply triple antibiotic ointment. Augmentin as directed, until gone. Follow-up with a primary care physician for wound recheck in 3-5 days. Return to the emergency room for worsening symptoms. Scripts Amoxicillin-Clavulanate (Augmentin) 875-125 Mg Tab 1 TAB PO BID for Infection for 10 Days, #19 TAB 0 Refills Prov: Sree Grady MD 10/06/17 Disposition: 01 DISCHARGE HOME Condition: Stable Jaqui Vanessa Oct 06, 2017 11:30
[2017-10-06] MEDS ORDERED: AUGM875T3 PO (11:32)
== END 2017-10-06 11:55 | disposition home or self-care (01) ==
LOC: NEPK 10:42
DX: S61.451A Open bite of right hand, initial encounter (principal); W54.0XXA Bitten by dog, initial encounter; I10 Essential (primary) hypertension; M10.9 Gout, unspecified; Z23 Encounter for immunization
CPT/HCPCS: 90471; 90714

== ENCOUNTER 2017-10-08 09:41 | Emergency (ER) | payer MEDICARE ==
[~2017-10-08] VITALS: Ht 180.3 cm; Wt 72.5 kg
[~2017-10-08 09:41] MED LIST changes: +AUGM875T3 PO; -MEDR4PAK PO
[2017-10-08 09:43] VITALS: BP 191/78; PULSE 68; RESP 16; TEMP 98.1; O2SAT 98
--- NOTE | 2017-10-08 10:20 | PD ---
HPI Chief Complaint: Wound/Suture/Staple Re-Check Time Seen by Provider: 10:03 Travel History International Travel<30 days: No Contact w/Intl Traveler<30days: No Traveled to known affect area: No History of Present Illness HPI 82-year-old male presents to the emergency department for wound recheck to his right hand after being bit by a dog. He was seen here on October 06. He was told to come back for wound recheck. He reports redness, mild swelling, and pain to the first and second metacarpal region near, near the wrist. He has been taking Augmentin as prescribed, which also has given him diarrhea. He denies abdominal pain, fevers, vomiting. Was seen at his primary care office this morning and was told to come to the ER. Symptoms are moderate in severity. Worse with palpation to the area. Better at rest and without aggravating the area. No known allergies. Has no other medical complaints. No other modifying factors or associated signs and symptoms. 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) Cardiovascular Problems: Yes Chemotherapy: No Diabetes: No Diminished Hearing: No Endocrine: No Gout: Yes Genitourinary: No Hepatitis: No Hiatal Hernia: No Hypertension: Yes Immune Disorder: No Musculoskeletal: Yes (arthritis,back pain L3 and neck pain) Neurologic: No Psychiatric: No Reproductive: No Respiratory: No Integumentary: Yes Migraines: No Seizures: No Thyroid Disease: No Past Surgical History Abdominal Surgery: Yes (appy) AICD: No Appendectomy: Yes Eye Surgery: Yes (cataract surgery) Joint Replacement: Yes (left knee) Oral Surgery: Yes (lesion on vocal cord removed) Pacemaker: No Tonsillectomy: Yes Other Surgery: Yes Social History Alcohol Use: Yes (ocassionally) Tobacco Use: No (quit 45 years) Substance Use: No Allergies-Medications (Allergen,Severity, Reaction): Coded Allergies: No Known Allergies (Verified Allergy, Unknown, 10/08/17) Reported Meds & Prescriptions Reported Meds & Active Scripts Active Clindamycin (Clindamycin HCl) 150 Mg Cap 450 Mg PO Q8HR 10 Days Augmentin (Amoxicillin-Clavulanate) 875-125 Mg Tab 1 Tab PO BID 10 Days Reported Allopurinol 300 Mg Tab 300 Mg PO DAILY Metoprolol Tartrate 25 Mg Tab 25 Mg PO BID Review of Systems Except as stated in HPI: all other systems reviewed are Neg Physical Exam Narrative GENERAL: Well-nourished, well-developed elderly, male patient, in no acute distress; afebrile, nontoxic-appearing SKIN: Warm and dry. Dorsal aspect of right hand at the first and second metacarpal region with Steri-Strips intact; no drainage noted; there is some mild erythema and mild edema extending to the proximal aspect of the bandage, near the wrist. Patient has full range of motion of all fingers and the wrist. No lymphangitis noted. Right upper extremities supple and non-tense with 2+ radial pulses and sensory intact. HEAD: Atraumatic. Normocephalic. EYES: Pupils equal and round. No scleral icterus. No injection or drainage. ENT: Mucosa pink and moist. Airway patent. NECK: Trachea midline. CARDIOVASCULAR: Regular rate. RESPIRATORY: No accessory muscle use. GASTROINTESTINAL: Obese. MUSCULOSKELETAL: No obvious deformities. No clubbing. No cyanosis. No edema. NEUROLOGICAL: Awake and alert. Oriented 3. No obvious cranial nerve deficits. Motor grossly within normal limits. Normal speech. PSYCHIATRIC: Appropriate mood and affect; insight and judgment normal. Data Data Last Documented VS Vital Signs Date Time Temp Pulse Resp B/P (MAP) Pulse Ox O2 Delivery O2 Flow Rate FiO2 10/08/17 12:00 10/08/17 09:43 98.1 68 16 98 Room Air Orders Orders Hand, Complete ([id number]) (10/08/17 10:15) Ed Discharge Order (10/08/17 11:34) MDM Medical Decision Making Medical Screen Exam Complete: Yes Emergency Medical Condition: Yes Medical Record Reviewed: Yes Differential Diagnosis Encounter for wound recheck, cellulitis, adverse reaction of medication, osteomyelitis Narrative Course 82-year-old male presents for wound recheck of his right hand. He was bit by his doctor on October 06 and was seen here for treatment and evaluation. He followed up with his primary care provider this morning and was told to come to the ER. There is some minimal erythema to the base of the Steri-Strips of the wound. The Steri-Strips are dry and no drainage is noted. No lymphangitis. Patient is afebrile and nontoxic-appearing. He has full range of motion of all joints. He is also complaining of diarrhea secondary to the Augmentin. Denies abdominal pain, vomiting. I will x-ray the hand to rule out osteomyelitis. Right hand x-ray ordered. 1119: Right hand x-ray concludes: Hand X-Ray 10/08/17 1015 Signed Impressions: Service Date/Time: Sunday, October 08, 2017 10:36 - CONCLUSION: Negative for fracture or dislocation. Follow up in 7-10 days is suggested if symptoms persist. Tam Mendiola MD FACR Dr. Alcaraz recommended switching the patient for Augmentin to clindamycin. Clindamycin prescribed for home. Instructed patient to stop Augmentin. Dressing applied. Instructed patient to return to the emergency department in 48 hours for wound recheck. Instructed patient to follow up with primary care provider. Patient verbalizes understanding and agreement with treatment plan. Patient is medically cleared and stable for discharge. Discussed reasons to return to the emergency department. Patient agrees with treatment plan. The patients vital signs are stable and the patient is stable for outpatient follow- up and treatment. Patient discharged home, stable and in no acute distress. Diagnosis Primary Impression: Encounter for wound re-check Referrals: Hand Surgeon Primary Care Physician Patient Instructions: Animal Bite (ED), General Instructions, Steristrips (ED) Additional Instructions: Tylenol as instructed and as needed for pain Stop taking Augmentin Start taking clindamycin Follow-up with primary care provider Follow-up with hand surgeon as needed Return to the emergency department immediately for worsening of symptoms Med/Other Pt SpecificInfo: Prescription(s) given, Med Stopped Scripts Clindamycin (Clindamycin) 150 Mg Cap 450 MG PO Q8HR for Infection for 10 Days, CAP 0 Refills Prov: Izabel Ratliff 10/08/17 Disposition: 01 DISCHARGE HOME Condition: Stable Izabel Ratliff Oct 08, 2017 10:20
[2017-10-08] MEDS ORDERED: CLIN150C14 PO (10:32)
--- NOTE | 2017-10-08 11:03 | RADRPT ---
EXAM DATE/TIME: 10/08/2017 10:36 [facility] COMPARISON: No previous studies available for comparison. INDICATIONS : Right hand pain. MEDICAL HISTORY : dog bite right hand 10-06-17 SURGICAL HISTORY : None. ENCOUNTER: Initial ACUITY: 1 day PAIN SCORE: 3/10 LOCATION: Right hand FINDINGS: Three view examination of the right hand demonstrates no soft tissue swelling, dislocation, or fractu re. The carpal bones appear intact. The interphalangeal and metacarpophalangeal joints are intact. Bony mineralization is normal. CONCLUSION: Negative for fracture or dislocation. Follow up in 7-10 days is suggested if symptoms persist. Tam Mendiola MD FACR on October 08, 2017 at 10:50 Board Certified Radiologist. This report was verified electronically.
== END 2017-10-08 12:03 | disposition home or self-care (01) ==
LOC: NEPD 09:41
DX: S61.451D Open bite of right hand, subsequent encounter (principal); W54.0XXD Bitten by dog, subsequent encounter
CPT/HCPCS: 73130; 99283